=== PATIENT | female | born 1970 | race Hispanic/Latino ===

== ENCOUNTER 2017-09-27 15:08 | Inpatient (IN) | payer OTHER ==
[2017-09-27 15:08] VITALS: BMI 30.7
[2017-09-27] MEDS ORDERED: Aspirin 325 mg EC Tablets PO STA (16:06)
[2017-09-27] MEDS ORDERED: Aspirin 325 mg EC Tablets PO ONE (16:13)
[2017-09-27] MEDS ORDERED: Nitroglycerin 2% Ointment Foilpak UD TOP STA (16:26)
[2017-09-27] MEDS ORDERED: Enalaprilat 2.5 MG/2 ML IV ONE (16:26)
[2017-09-27 16:28] LABS: BASO # 0.1 K/uL (0.0-0.2); BASO % 0.8 % (0.0-2.0); EOS # 0.1 K/uL (0.0-0.7); EOS % 0.5 % (0.0-4.0); HEMOGLOBIN 11.7 g/dL (11.0-16.0); LYMPH # 1.7 K/uL (1.0-4.3); MEAN CORPUSCULAR HEMOGLOBIN 26.1 pg (27.0-31.0); MEAN CORPUSCULAR HGB CONC 32.2 g/dL (33.0-37.0); MEAN PLATELET VOLUME 7.7 fL (7.2-11.7); MONO # 0.4 K/uL (0.0-0.8); MONO % 3.9 % (0.0-10.0); NEUT # 8.9 K/uL (1.8-7.0); NEUT % 79.8 % (50.0-75.0); RBC 4.5 Mil/uL (3.80-5.20); RED CELL DISTRIBUTION WIDTH 19.2 % (11.5-14.5); WHITE BLOOD COUNT 11.2 K/uL (4.8-10.8)
[2017-09-27 16:36] LABS: INR 1.2
[2017-09-27] MEDS ORDERED: Nitroglycerin 2% Ointment Foilpak UD TOP ONE (16:38)
[2017-09-27] MEDS ORDERED: Enalaprilat 2.5 MG/2 ML ONE (16:38)
[2017-09-27 16:54] LABS: ALB/GLOB RATIO 1.1 (1.0-2.1); ALBUMIN 3.5 g/dL (3.5-5.0); ALT/SGPT 65 U/L (9-52); AST/SGOT 37 U/L (14-36); BLOOD UREA NITROGEN 15 mg/dL (7-17); CALCIUM 8.7 mg/dl (8.6-10.4); GFR AFRICAN-AMERICAN > 60; GFR NON-AFRICAN AMERICAN > 60
[2017-09-27 17:04] LABS: B-TYPE NATRIURETIC PEPTIDE 1850 pg/mL (0-450)
[2017-09-27] MEDS ORDERED: Labetalol 25mg/5ml Syringe IVP STA (17:23)
--- NOTE | 2017-09-27 17:48 | RAD ---
PROCEDURE: CHEST RADIOGRAPH, 1 VIEW HISTORY: chest pain COMPARISON: None available. FINDINGS: LUNGS: Clear. PLEURA: No pneumothorax or pleural fluid seen. CARDIOVASCULAR: Cardiomegaly. No evidence of acute, significant cardiovascular disease. OSSEOUS STRUCTURES: No significant abnormalities. VISUALIZED UPPER ABDOMEN: Normal. OTHER FINDINGS: None. IMPRESSION: No active disease.
--- NOTE | 2017-09-27 18:18 | C.PDOC ---
Time Seen by Provider: 09/27/17 15:54 Chief Complaint (Nursing): Chest Pain History Per: Patient, Family Onset/Duration Of Symptoms: Days (about 2 weeks), Intermittent Episodes Current Symptoms Are (Timing): Still Present Severity: Moderate Quality: "Pain" Associated Symptoms: Dyspnea Modifying Factors: Other Indicated Below Exacerbating Factors: Exertion Nitro Therapy Administered: 1, Per ED, Complete Relief Additional History Per: Prior Records Past Medical History Reviewed: Historical Data, Nursing Documentation, Vital Signs Vital Signs: Last Vital Signs Temp 98.4 F 09/27/17 15:32 Pulse 75 09/27/17 17:54 Resp 21 09/27/17 17:54 BP 208/119 H 09/27/17 17:54 Pulse Ox 99 09/27/17 17:54 - Medical History PMH: Anxiety, Back Problems, HTN (noncompliant with meds) Surgical History: Back Surgery Family History: States: Unknown Family Hx - Social History Hx Tobacco Use: Yes Hx Alcohol Use: No Hx Substance Use: No - Immunization History Hx Tetanus Toxoid Vaccination: No Hx Influenza Vaccination: No Hx Pneumococcal Vaccination: No Review Of Systems Except As Marked, All Systems Reviewed And Found Negative. Constitutional: Negative for: Fever Cardiovascular: Positive for: Chest Pain Respiratory: Positive for: SOB with Excertion. Negative for: Hemoptysis Gastrointestinal: Negative for: Vomiting, Abdominal Pain Musculoskeletal: Negative for: Neck Pain, Leg Pain Skin: Negative for: Rash Neurological: Negative for: Weakness, Numbness Psych: Positive for: Anxiety Physical Exam - Physical Exam Appears: In Acute Distress Skin: Normal Color, Warm, Dry, No Rash Head: Atraumatic, Normacephalic Eye(s): bilateral: Normal Inspection, PERRL, EOMI Neck: Normal ROM, Supple Cardiovascular: Rhythm Regular, Murmur Respiratory: Normal Breath Sounds, No Accessory Muscle Use Gastrointestinal/Abdominal: Soft, No Tenderness Back: No CVA Tenderness Extremity: Normal ROM, No Pedal Edema, No Calf Tenderness Neurological/Psych: Oriented x3, Normal Motor, Normal Sensation ED Course And Treatment - Laboratory Results Result Diagrams: 09/27/17 16:24 09/27/17 16:24 Lab Interpretation: Abnormal Interpretation Of Abnormal: Elevated BNP ECG: Interpreted By Me, Viewed By Me ECG Rhythm: Sinus Tachycardia, Nonspecific Changes ECG Interpretation: Abnormal Interpretation Of ECG: LVH Rate From EC O2 Sat by Pulse Oximetry: 99 Pulse Ox Interpretation: Normal - Radiology CXR: Viewed By Me, Read By Radiologist CXR Interpretation: Yes: Cardiomegaly Progress Note: BP remains elevated after multiple IV antihypertensive medication. Pt will require IV drip. Will admit to ICU. Pt requests to be admitted on Dr. Marti's service. Progress - Interventions Interventions:: Observation, Oxygen - Medications Administered Oral: Aspirin Intravenous: Antihypertensive - Data Reviewed Data Reviewed: Lab, Diagnostic imaging, EKG, Old records - Patient Status Patient status: Partially improved - Critical Care Citical Care: Excluding Proc Time Critical Care Time: 60 minutes - Continuity of Care Discussed patient case with:: Patient, Family-HIPPA compliant, ED Nurse Discussed pt. case with school plant consultant/specialty: Pulmonary/Crit. Care - Patient Plan Patient Plan: Admission, ICU Disposition Discussed With DrPreston: [place] Marti Comment: He evaluated pt in the ED and accepted pt ICU on his service. Doctor Will See Patient In The: ED Counseled Patient/Family Regarding: Studies Performed, Diagnosis - Disposition Disposition: HOSPITALIZED Disposition Time: 18:21 Condition: SERIOUS - Clinical Impression Clinical Impression: Hypertensive emergency
[2017-09-27] MEDS ORDERED: Lactated Ringer's 500 ML IV ONE (18:24)
[2017-09-27] MEDS ORDERED: Oxycodone/Acetaminophen 5/325 mg Tab PO PRN (18:36)
--- NOTE | 2017-09-27 19:10 | CP.PCM.HP ---
History of Present Illness - History of Present Illness History of Present Illness: Chief complaint: Intermittent chest pain History of present illness: 47-year-old female with a known history of high blood pressure, also chronic lower back pain, status post spinal fusion, patient came to the emergency room with the symptoms of chest discomfort. The patient was having some appointment in my office tomorrow but the family was concerned about her condition. Patient was having ongoing pain for almost 3 weeks, the patient reported chest discomfort in the anterior chest area, nonradiating pain noted. Patient is extremely anxious. Complaining of headache. She was also having some nausea, but no vomiting. She denies any diarrhea. No urinary symptoms. She did not have any dizziness. Patient the past was noted to have high blood pressure, but the patient was not on any medications recently. She stopped taking medications almost a year now. Patient did not monitor to check her blood pressure recently. Patient was not able to sleep well. She was having some blurring vision occasionally. In today in the emergency room patient blood pressure was extremely elevated. Patient is having some restlessness, and uneasiness, but after taking Ativan, she is feeling slightly better. The blood pressure still on the high side Past medical history: Hypertension, multiple disc disease, spinal fusion. Anxiety Surgical history: Spinal fusion Allergies: No known drug allergies Family history: Significant history of hypertension, heart disease noted Review of system: Patient is currently having some headache pain Chest discomfort noted. Denies any nausea or vomiting. No abdominal symptoms. Denies any leg pain, but the patient is having on and off leg comes from the spinal fusion surgery Vital signs reviewed No neck vein distention noted Chest good air entry bilaterally, no wheezing or rales noted CVS regular heart sound, no murmur noted Abdomen soft, nontender. Extremities no pedal edema [employer] alert awake oriented -3, no functional neurological deficit Patient labs. Nonspecific. Renal functions is normal Elevated proBNP level noted Chest x-ray mild vascular congestion noted Assessment and recommendation: 47-year-old female now admitted with a severe uncontrolled hypertension, and associated with the elevated proBNP, underlying CHF possible. Patient will need possibly nitroglycerin drip, but the accompanying of increasing headache because of the nitroglycerin. I will start the patient on low-dose nicardipine drip. Lasix diuretics. Cardiology evaluation. Echocardiogram. Most likely patient has an acute hypertensive crisis at this time. We'll closely monitor, intensive care unit monitoring. Present on Admission - Present on Admission Any Indicators Present on Admission: No History of DVT/PE: No History of Uncontrolled Diabetes: No Urinary Catheter: No Decubitus Ulcer Present: No Past Patient History - Past Social History Smoking Status: Heavy Smoker > 10 Cigarettes Daily - CARDIAC Hx Hypertension: Yes (noncompliant with meds) - NEUROLOGICAL Hx Paralysis: No - HEMATOLOGICAL/ONCOLOGICAL Hx Blood Transfusions: No - MUSCULOSKELETAL/RHEUMATOLOGICAL Hx Musculoskeletal Disorders: Yes - PSYCHIATRIC Hx Anxiety: Yes Hx Substance Use: No - SURGICAL HISTORY Hx Surgeries: Yes - ANESTHESIA Hx Anesthesia Reactions: No Hx Malignant Hyperthermia: No Meds Allergies/Adverse Reactions: Allergies Allergy/AdvReac Type Severity Reaction Status Date / Time No Known Allergies Allergy Verified 09/27/17 15:34 Results - Vital Signs Recent Vital Signs: Last Vital Signs Temp 98.4 F 09/27/17 15:32 Pulse 83 09/27/17 18:40 Resp 20 09/27/17 18:40 BP 214/120 H 09/27/17 18:40 Pulse Ox 99 09/27/17 18:40 - Labs Result Diagrams: 09/27/17 16:24 09/27/17 16:24 Labs: Laboratory Results - last 24 hr 09/27/17 09/27/17 09/27/17 16:24 16:24 16:24 WBC 11.2 H RBC 4.50 Hgb 11.7 Hct 36.5 MCV 81.0 MCH 26.1 L MCHC 32.2 L RDW 19.2 H Plt Count 314 MPV 7.7 Neut % (Auto) 79.8 H Lymph % (Auto) 15.0 L [place] % (Auto) 3.9 Eos % (Auto) 0.5 Baso % (Auto) 0.8 Neut # (Auto) 8.9 H Lymph # (Auto) 1.7 [place] # (Auto) 0.4 Eos # (Auto) 0.1 Baso # (Auto) 0.1 PT 13.0 H INR 1.2 APTT 28 Sodium 141 Potassium 3.6 Chloride 103 Carbon Dioxide 25 Anion Gap 17 BUN 15 Creatinine 0.8 Est GFR ( Amer) > 60 Est GFR (Non-Af Amer) > 60 Random Glucose 119 H Calcium 8.7 Total Bilirubin 0.8 AST 37 H ALT 65 H Alkaline Phosphatase 109 Troponin I 0.0540 NT-Pro-B Natriuret Pep 1850 H Total Protein 6.7 Albumin 3.5 Globulin 3.2 Albumin/Globulin Ratio 1.1
[2017-09-27] MEDS ORDERED: niCARdipine IV 25 MG in Sodium Chloride 0.9% 240 ML IV SCH (19:30)
[2017-09-27] MEDS ORDERED: Oxycodone/Acetaminophen 5/325 mg Tab ONE (20:07)
[2017-09-27] MEDS ORDERED: Potassium Chloride 20 mEq ER Tab PO STA (20:37)
[2017-09-27] MEDS ORDERED: Potassium Chloride 20 mEq ER Tab PO ONE (20:38)
[2017-09-27] MEDS ORDERED: Potassium Chloride 20 mEq/15 ml LIQ UD PO ONE (20:45)
[2017-09-27 21:31] LABS: ALB/GLOB RATIO 1.2 (1.0-2.1); ALBUMIN 4.4 g/dL (3.5-5.0); ALT/SGPT 50 U/L (9-52); AST/SGOT 61 U/L (14-36); BLOOD UREA NITROGEN 16 mg/dL (7-17); CALCIUM 9.1 mg/dl (8.6-10.4); GFR AFRICAN-AMERICAN > 60; GFR NON-AFRICAN AMERICAN > 60
--- NOTE | 2017-09-27 21:32 | CT ---
EXAM: CT Head Without Intravenous Contrast CLINICAL HISTORY: 47 years old, female; Condition or disease; Other: HTN; Additional info: HTN crisis TECHNIQUE: Axial computed tomography images of the head/brain without intravenous contrast. All CT scans at this facility use one or more dose reduction techniques, viz.: automated exposure control; ma/kV adjustment per patient size (including targeted exams where dose is matched to indication; i.e. head); or iterative reconstruction technique. Coronal and sagittal reformatted images were created and reviewed. COMPARISON: No relevant prior studies available. FINDINGS: Limitations: Motion artifact - mild. Brain: Minimal atrophy. No definite intracranial hemorrhage. No mass. Few scattered subtle foci of decreased attenuation within periventricular/subcortical white matter. No definite edema. Ventricles: No hydrocephalus. Bones/joints: No acute fracture. Soft tissues: Unremarkable. Sinuses: No acute sinusitis. Mastoid air cells: No mastoid effusion. Orbits: Unremarkable as visualized. Sella: Mildly enlarged sella with CSF density and flattening of pituitary gland. IMPRESSION: 1. Nonspecific white matter changes. Acute infarction may be CT occult within first 24 hours. If a focal deficit persists, consider followup CT or MRI for further evaluation. 2. Incidental/non-acute findings are described above.
[2017-09-27 21:39] LABS: CK-MB 1.84 ng/mL (0.0-3.38)
[2017-09-27] MEDS: Oxycodone/Acetaminophen 5/325 mg Tab PO PRN (21:55)
[2017-09-27] MEDS: niCARdipine IV 25 MG in Sodium Chloride 0.9% 240 ML IV SCH (22:10)
--- NOTE | 2017-09-27 23:00 | CP.PCM.CON ---
History of Present Illness - History of Present Illness History of Present Illness: Patient seen and evaluated Hypertensive emergency Titrate Cardene to keep SBP 150-180 CT head results pending Neuro consult Secondary HTN work up Check CTA of the Aorta Review Of Systems Except As Marked, All Systems Reviewed And Found Negative. Constitutional: Negative for: Fever Cardiovascular: Positive for: Chest Pain Respiratory: Positive for: SOB with Excertion. Negative for: Hemoptysis Gastrointestinal: Negative for: Vomiting, Abdominal Pain Musculoskeletal: Negative for: Neck Pain, Leg Pain Skin: Negative for: Rash Neurological: Negative for: Weakness, Numbness Psych: Positive for: Anxiety Physical Exam - Physical Exam Appears: In Acute Distress Skin: Normal Color, Warm, Dry, No Rash Head: Atraumatic, Normacephalic Eye(s): bilateral: Normal Inspection, PERRL, EOMI Neck: Normal ROM, Supple Cardiovascular: Rhythm Regular, Murmur Respiratory: Normal Breath Sounds, No Accessory Muscle Use Gastrointestinal/Abdominal: Soft, No Tenderness Back: No CVA Tenderness Extremity: Normal ROM, No Pedal Edema, No Calf Tenderness Neurological/Psych: Oriented x3, Normal Motor, Normal Sensation Past Patient History - Past Social History Smoking Status: Heavy Smoker > 10 Cigarettes Daily - CARDIAC Hx Hypertension: Yes (noncompliant with meds) - NEUROLOGICAL Hx Paralysis: No - HEMATOLOGICAL/ONCOLOGICAL Hx Blood Transfusions: No - MUSCULOSKELETAL/RHEUMATOLOGICAL Hx Musculoskeletal Disorders: Yes - PSYCHIATRIC Hx Anxiety: Yes Hx Substance Use: No - SURGICAL HISTORY Hx Surgeries: Yes - ANESTHESIA Hx Anesthesia Reactions: No Hx Malignant Hyperthermia: No Meds Home Medications: Home Medication List Medication Instructions Recorded Confirmed Type Alprazolam [Xanax] 0.5 mg PO TID PRN #90 tab 10/01/17 Rx Carvedilol [Coreg] 25 mg PO Q12H #60 tab 10/01/17 Rx Gabapentin [Neurontin] 300 mg PO TID #90 cap 10/01/17 Rx Spironolactone [Aldactone] 25 mg PO DAILY #30 tab 10/01/17 Rx amLODIPine [Norvasc] 10 mg PO Q12H #60 tab 10/01/17 Rx hydrALAZINE [Apresoline] 50 mg PO Q8 #90 tab 10/01/17 Rx Allergies/Adverse Reactions: Allergies Allergy/AdvReac Type Severity Reaction Status Date / Time No Known Allergies Allergy Verified 09/27/17 15:34 - Medications Medications: Current Medications Cyclobenzaprine HCl (Flexeril) 5 mg PO HS ALICE Last Admin: 09/27/17 22:23 Dose: 5 mg Furosemide (Lasix) 40 mg PO DAILY ALICE Heparin Sodium (Porcine) (Heparin) 5,000 units SC Q8 ALICE Last Admin: 09/27/17 21:55 Dose: 5,000 units Lactated Ringer's (Lactated Ringer's 500ml) 500 mls @ 30 mls/hr IV .[id number] ONE Stop: 09/28/17 11:03 Last Admin: 09/27/17 19:40 Dose: 30 mls/hr Nicardipine HCl 25 mg/ Sodium (Chloride) 250 mls @ 50 mls/hr IV .Q5H ALICE; 5 MG/ HR PRN Reason: Protocol Last Admin: 09/27/17 22:10 Dose: 5 mg/hr, 50 mls/hr Lorazepam (Ativan) 1 mg IVP Q6H PRN PRN Reason: Anxiety Last Admin: 09/27/17 22:16 Dose: 1 mg Losartan Potassium (Cozaar) 50 mg PO DAILY [facility] Oxycodone/Acetaminophen (Percocet 5/325 Mg Tab) 2 tab PO Q6H PRN PRN Reason: Pain, moderate (4-7) Stop: 09/30/17 21:43 Last Admin: 09/27/17 21:55 Dose: 2 tab Results - Vital Signs Recent Vital Signs: Last Vital Signs Temp 97.4 F L 09/27/17 20:02 Pulse 82 09/27/17 20:51 Resp 17 09/27/17 20:51 BP 219/120 H 09/27/17 20:51 Pulse Ox 98 09/27/17 20:51 - Labs Result Diagrams: 09/30/17 06:12 09/30/17 06:10 Labs: Laboratory Results - last 24 hr 09/27/17 09/27/17 09/27/17 16:24 16:24 16:24 WBC 11.2 H RBC 4.50 Hgb 11.7 Hct 36.5 MCV 81.0 MCH 26.1 L MCHC 32.2 L RDW 19.2 H Plt Count 314 MPV 7.7 Neut % (Auto) 79.8 H Lymph % (Auto) 15.0 L [place] % (Auto) 3.9 Eos % (Auto) 0.5 Baso % (Auto) 0.8 Neut # (Auto) 8.9 H Lymph # (Auto) 1.7 [place] # (Auto) 0.4 Eos # (Auto) 0.1 Baso # (Auto) 0.1 PT 13.0 H INR 1.2 APTT 28 Sodium 141 Potassium 3.6 Chloride 103 Carbon Dioxide 25 Anion Gap 17 BUN 15 Creatinine 0.8 Est GFR ( Amer) > 60 Est GFR (Non-Af Amer) > 60 Random Glucose 119 H Calcium 8.7 Phosphorus Magnesium Total Bilirubin 0.8 AST 37 H ALT 65 H Alkaline Phosphatase 109 Total Creatine Kinase CK-MB (Mass) Troponin I 0.0540 NT-Pro-B Natriuret Pep 1850 H Total Protein 6.7 Albumin 3.5 Globulin 3.2 Albumin/Globulin Ratio 1.1 09/27/17 21:03 WBC RBC Hgb Hct MCV MCH MCHC RDW Plt Count MPV Neut % (Auto) Lymph % (Auto) [place] % (Auto) Eos % (Auto) Baso % (Auto) Neut # (Auto) Lymph # (Auto) [place] # (Auto) Eos # (Auto) Baso # (Auto) PT INR APTT Sodium 141 Potassium 4.8 Chloride 103 Carbon Dioxide 24 Anion Gap 20 BUN 16 Creatinine 0.8 Est GFR ( Amer) > 60 Est GFR (Non-Af Amer) > 60 Random Glucose 201 H Calcium 9.1 Phosphorus 3.9 Magnesium 1.7 Total Bilirubin 1.6 H AST 61 H D ALT 50 Alkaline Phosphatase 106 Total Creatine Kinase 103 CK-MB (Mass) 1.84 Troponin I 0.0740 NT-Pro-B Natriuret Pep Total Protein 8.2 Albumin 4.4 Globulin 3.8 Albumin/Globulin Ratio 1.2 Assessment & Plan - Assessment and Plan (Free Text) Assessment: Patient is a 47 year old female with past medical history of HTN, chronic low back pain s/p spinal fusion who presented to the ED for chest discomfort, visual changes x 2 weeks. Patient was found to be in hypertensive emergency. Plan: Neurology: -Patient is AAOx3 -CT head: non-specific white matter changes -HTN work up in progress -Neurology on consult, Dr Tavera, help appreciated Cardiology: -Nicardipine iv drip -Add PO medications Respiratory: -CXR showing mild vascular congestion GI: -AST/ALT wnl -Will continue to monitor Heme/Onc: -No active issues at this time Renal: -Continue to monitor electrolytes and replete as needed -For renal artery duplex GI/DVT ppx: -Continue Pepcid 20mg PO daily -SCDs
--- NOTE | 2017-09-27 23:09 | US ---
EXAM: US Retroperitoneal Limited, Renal CLINICAL HISTORY: 47 years old, female; Signs and symptoms; Other: HTN TECHNIQUE: Real-time ultrasound of the retroperitoneum (limited) with image documentation. COMPARISON: No relevant prior studies available. FINDINGS: Aorta: Obscured by overlying bowel gas. Right kidney: Normal echogenicity. No mass. No calculi. Mild pelvocaliectasis. Left kidney: Normal echogenicity. No mass. No calculi. Mild pelvocaliectasis. Bladder: Unremarkable. Other findings: Gallstones. Tiny splenic calcification. IMPRESSION: 1. Mild pelvocaliectasis of both kidneys. 2. Incidental/non-acute findings are described above.
[2017-09-28] MEDS: niCARdipine IV 25 MG in Sodium Chloride 0.9% 240 ML IV SCH ×6 (01:08→18:00)
[2017-09-28] MEDS: Oxycodone/Acetaminophen 5/325 mg Tab PO PRN ×2 (05:29→12:05)
[2017-09-28 05:50] LABS: BASO # 0.1 K/uL (0.0-0.2); BASO % 1.1 % (0.0-2.0); EOS # 0.2 K/uL (0.0-0.7); EOS % 1.4 % (0.0-4.0); HEMOGLOBIN 13.2 g/dL (11.0-16.0); LYMPH # 2.9 K/uL (1.0-4.3); LYMPH % 23.2 % (20.0-40.0); MEAN CELL VOLUME 81.1 fL (81.0-99.0); MEAN CORPUSCULAR HEMOGLOBIN 26.5 pg (27.0-31.0); MEAN CORPUSCULAR HGB CONC 32.6 g/dL (33.0-37.0); MEAN PLATELET VOLUME 7.7 fL (7.2-11.7); MONO # 0.7 K/uL (0.0-0.8); MONO % 5.9 % (0.0-10.0); NEUT # 8.5 K/uL (1.8-7.0); NEUT % 68.4 % (50.0-75.0); NRBC % 0.1 % (0.0-2.0); RBC 4.98 Mil/uL (3.80-5.20); RED CELL DISTRIBUTION WIDTH 19.3 % (11.5-14.5); WHITE BLOOD COUNT 12.5 K/uL (4.8-10.8)
[2017-09-28 06:29] LABS: ALB/GLOB RATIO 1.2 (1.0-2.1); ALBUMIN 3.9 g/dL (3.5-5.0); ALT/SGPT 60 U/L (9-52); AST/SGOT 29 U/L (14-36); BLOOD UREA NITROGEN 13 mg/dL (7-17); CALCIUM 9.1 mg/dl (8.6-10.4); GFR AFRICAN-AMERICAN > 60; GFR NON-AFRICAN AMERICAN > 60
--- NOTE | 2017-09-28 07:15 | CP.PCM.CON ---
History of Present Illness - History of Present Illness History of Present Illness: CONSULT DICTATED HEADACHE RELATED TO ACCELERATED HTN POST LAMINECTOMY PAIN SYNDROME CONTROL BP BLOOD WORK UP FOR VASCULITIS MRI L/S SPINE PAIN MANAGEMENT NO NARCOTICS Past Patient History - Past Medical History & Family History Past Medical History?: Yes - Past Social History Smoking Status: Heavy Smoker > 10 Cigarettes Daily - CARDIAC Hx Hypertension: Yes (noncompliant with meds) - PULMONARY Hx Respiratory Disorders: No - NEUROLOGICAL Hx Paralysis: No - HEENT Hx HEENT Problems: No - RENAL Hx Chronic Kidney Disease: No - ENDOCRINE/METABOLIC Hx Endocrine Disorders: No - HEMATOLOGICAL/ONCOLOGICAL Hx Blood Transfusions: No - INTEGUMENTARY Hx Dermatological Problems: No - MUSCULOSKELETAL/RHEUMATOLOGICAL Hx Musculoskeletal Disorders: Yes - GASTROINTESTINAL Hx Gastrointestinal Disorders: No - GENITOURINARY/GYNECOLOGICAL Hx Genitourinary Disorders: No - PSYCHIATRIC Hx Anxiety: Yes Hx Substance Use: No - SURGICAL HISTORY Hx Surgeries: Yes - ANESTHESIA Hx Anesthesia Reactions: No Hx Malignant Hyperthermia: No Meds Allergies/Adverse Reactions: Allergies Allergy/AdvReac Type Severity Reaction Status Date / Time No Known Allergies Allergy Verified 09/27/17 15:34 - Medications Medications: Current Medications Cyclobenzaprine HCl (Flexeril) 5 mg PO HS ALICE Last Admin: 09/27/17 22:23 Dose: 5 mg Furosemide (Lasix) 40 mg PO DAILY [facility] Heparin Sodium (Porcine) (Heparin) 5,000 units SC Q8 ALICE Last Admin: 09/28/17 05:29 Dose: 5,000 units Lactated Ringer's (Lactated Ringer's 500ml) 500 mls @ 30 mls/hr IV .[id number] ONE Stop: 09/28/17 11:03 Last Admin: 09/27/17 19:40 Dose: 30 mls/hr Nicardipine HCl 25 mg/ Sodium (Chloride) 250 mls @ 50 mls/hr IV .Q5H ALICE; 5 MG/ HR PRN Reason: Protocol Last Titration: 09/28/17 05:31 Dose: 2.5 mg/hr, 25 mls/hr Lorazepam (Ativan) 1 mg IVP Q6H PRN PRN Reason: Anxiety Last Admin: 09/28/17 03:09 Dose: 1 mg Lorazepam (Ativan) 2 mg IVP ONCE ONE Stop: 09/28/17 07:14 Losartan Potassium (Cozaar) 50 mg PO DAILY ALICE Oxycodone/Acetaminophen (Percocet 5/325 Mg Tab) 2 tab PO Q6H PRN PRN Reason: Pain, moderate (4-7) Stop: 09/30/17 21:43 Last Admin: 09/28/17 05:29 Dose: 2 tab Results - Vital Signs Recent Vital Signs: Last Vital Signs Temp 97.4 F L 09/27/17 20:02 Pulse 79 09/28/17 06:03 Resp 17 09/28/17 06:03 BP 175/87 H 09/28/17 06:03 Pulse Ox 95 09/28/17 06:03 - Labs Result Diagrams: 09/28/17 05:46 09/28/17 05:44 Labs: Laboratory Results - last 24 hr 09/27/17 09/27/17 09/27/17 16:24 16:24 16:24 WBC 11.2 H RBC 4.50 Hgb 11.7 Hct 36.5 MCV 81.0 MCH 26.1 L MCHC 32.2 L RDW 19.2 H Plt Count 314 MPV 7.7 Neut % (Auto) 79.8 H Lymph % (Auto) 15.0 L [place] % (Auto) 3.9 Eos % (Auto) 0.5 Baso % (Auto) 0.8 Neut # (Auto) 8.9 H Lymph # (Auto) 1.7 [place] # (Auto) 0.4 Eos # (Auto) 0.1 Baso # (Auto) 0.1 PT 13.0 H INR 1.2 APTT 28 Sodium 141 Potassium 3.6 Chloride 103 Carbon Dioxide 25 Anion Gap 17 BUN 15 Creatinine 0.8 Est GFR ( Amer) > 60 Est GFR (Non-Af Amer) > 60 Random Glucose 119 H Calcium 8.7 Phosphorus Magnesium Total Bilirubin 0.8 AST 37 H ALT 65 H Alkaline Phosphatase 109 Lactate Dehydrogenase Total Creatine Kinase CK-MB (Mass) Troponin I 0.0540 C-React Prot High Sens NT-Pro-B Natriuret Pep 1850 H Total Protein 6.7 Albumin 3.5 Globulin 3.2 Albumin/Globulin Ratio 1.1 Homocysteine TSH 3rd Generation 09/27/17 09/28/17 09/28/17 21:03 05:44 05:44 WBC RBC Hgb Hct MCV MCH MCHC RDW Plt Count MPV Neut % (Auto) Lymph % (Auto) [place] % (Auto) Eos % (Auto) Baso % (Auto) Neut # (Auto) Lymph # (Auto) [place] # (Auto) Eos # (Auto) Baso # (Auto) PT INR APTT Sodium 141 143 Potassium 4.8 3.3 L Chloride 103 103 Carbon Dioxide 24 25 Anion Gap 20 19 BUN 16 13 Creatinine 0.8 0.8 Est GFR ( Amer) > 60 > 60 Est GFR (Non-Af Amer) > 60 > 60 Random Glucose 201 H 173 H Calcium 9.1 9.1 Phosphorus 3.9 3.8 Magnesium 1.7 1.9 Total Bilirubin 1.6 H 0.8 AST 61 H D 29 ALT 50 60 H Alkaline Phosphatase 106 124 Lactate Dehydrogenase 796 H Total Creatine Kinase 103 CK-MB (Mass) 1.84 Troponin I 0.0740 C-React Prot High Sens NT-Pro-B Natriuret Pep Total Protein 8.2 7.3 Albumin 4.4 3.9 Globulin 3.8 3.4 Albumin/Globulin Ratio 1.2 1.2 Homocysteine TSH 3rd Generation 1.27 09/28/17 09/28/17 09/28/17 05:46 06:34 06:34 WBC 12.5 H RBC 4.98 Hgb 13.2 Hct 40.4 MCV 81.1 MCH 26.5 L MCHC 32.6 L RDW 19.3 H Plt Count 356 MPV 7.7 Neut % (Auto) 68.4 Lymph % (Auto) 23.2 [place] % (Auto) 5.9 Eos % (Auto) 1.4 Baso % (Auto) 1.1 Neut # (Auto) 8.5 H Lymph # (Auto) 2.9 [place] # (Auto) 0.7 Eos # (Auto) 0.2 Baso # (Auto) 0.1 PT INR APTT Sodium Potassium Chloride Carbon Dioxide Anion Gap BUN Creatinine Est GFR ( Amer) Est GFR (Non-Af Amer) Random Glucose Calcium Phosphorus Magnesium Total Bilirubin AST ALT Alkaline Phosphatase Lactate Dehydrogenase Total Creatine Kinase CK-MB (Mass) Troponin I C-React Prot High Sens 13.12 H NT-Pro-B Natriuret Pep Total Protein Albumin Globulin Albumin/Globulin Ratio Homocysteine 8.5 TSH 3rd Generation
[2017-09-28] MEDS ORDERED: Potassium Chloride 20 mEq ER Tab PO ONE (09:00)
--- NOTE | 2017-09-28 09:44 | CP.CCUPN ---
<Marlyn Mayer - Last Filed: 09/28/17 11:49> CCU Subjective - Physician Review Subjective (Free Text): 09/28/17 09:43 Patient seen and examined at bedside. Per nursing, no acute events overnight. Patient states that she is feeling better. Still admits for having a headache but mild. Sitting up comfortably eating breakfast. Offers no other complaints at this time. CCU Objective - Vital Signs / Intake & Output Vital Signs (Last 4 hours): Vital Signs Temp Pulse Resp BP Pulse Ox 09/28/17 09:40 146/92 H 09/28/17 09:03 87 24 146/92 H 09/28/17 09:00 89 29 H 97 09/28/17 08:51 95 H 21 159/94 H 96 09/28/17 08:33 100 H 16 95 09/28/17 08:30 103 H 20 96 09/28/17 08:09 99 H 22 157/96 H 95 09/28/17 08:00 97.7 F 109 H 28 H 95 09/28/17 07:33 83 17 157/82 H 92 L 09/28/17 07:03 93 H 17 172/87 H 97 09/28/17 07:00 90 19 98 09/28/17 06:41 93 H 16 167/99 H 95 09/28/17 06:30 102 H 20 92 L 09/28/17 06:03 79 17 175/87 H 95 09/28/17 06:00 79 21 93 L Intake and Output (Last 8hrs): Intake & Output 09/27/17 09/28/17 09/28/17 22:59 06:59 14:59 Intake Total 230 1580 555 Output Total 700 1400 Balance -470 180 555 Weight 77.111 kg 79.634 kg Intake: IV 600 150 Intake, IV Amount 80 640 165 Left Hand 50 400 75 left arm 30 240 90 Oral 150 340 240 Output: Urine 700 1400 Urine, Voided 700 1400 Stool 0 - Physical Exam Head: Positive for: Atraumatic, Normocephalic Pupils: Positive for: PERRL Extroacular Muscles: Positive for: EOMI Conjunctiva: Positive for: Normal Mouth: Positive for: Moist Mucous Membranes Neck: Positive for: Normal Range of Motion Respiratory/Chest: Positive for: Clear to Auscultation, Good Air Exchange. Negative for: Respiratory Distress Cardiovascular: Positive for: Regular Rate and Rhythm, Normal S1, S2 Abdomen: Positive for: Normal Bowel Sounds. Negative for: Tenderness, Distention Upper Extremity: Negative for: Cyanosis, Edema Lower Extremity: Negative for: Edema Neurological: Positive for: CN II-XII Intact Skin: Positive for: Warm, Dry Psychiatric: Positive for: Alert, Oriented x 3 - Medications Active Medications: Active Medications Generic Name Dose Route Start Last Admin Trade Name Freq PRN Reason Stop Dose Admin Baclofen 10 mg 09/28/17 10:00 09/28/17 09:40 Lioresal PO 10 mg DAILY ALICE Administration Cyclobenzaprine HCl 5 mg 09/27/17 22:00 09/27/17 22:23 Flexeril PO 5 mg HS ALICE Administration Furosemide 40 mg 09/28/17 10:00 09/28/17 09:40 Lasix PO 40 mg DAILY ALICE Administration Gabapentin 300 mg 09/28/17 10:00 09/28/17 09:40 Neurontin PO 300 mg TID ALICE Administration Lactated Ringer's 500 mls @ 30 mls/hr 09/27/17 18:24 09/27/17 19:40 Lactated Ringer's 500ml IV 09/28/17 11:03 30 mls/hr .[id number] Administration Nicardipine HCl 25 mg/ Sodium 250 mls @ 50 mls/hr 09/27/17 22:00 09/28/17 09: 41 Chloride IV 2.5 mg/hr .Q5H ALICE 25 mls/hr Protocol Administration 5 MG/HR Lorazepam 1 mg 09/27/17 20:32 09/28/17 03:09 Ativan IVP 1 mg Q6H PRN Administration Anxiety Lorazepam 2 mg 09/28/17 07:13 Ativan IVP ONCE PRN lead front desk agent for MRI Losartan Potassium 50 mg 09/28/17 10:00 09/28/17 09:40 Cozaar PO 50 mg DAILY ALICE Administration Oxycodone/Acetaminophen 2 tab 09/27/17 21:42 09/28/17 05:29 Percocet 5/325 Mg Tab PO 09/30/17 21:43 2 tab Q6H PRN Administration Pain, moderate (4-7) - Patient Studies Lab Studies: Lab Studies 09/28/17 09/28/17 09/28/17 Range/Units 06:35 06:34 06:34 WBC (4.8-10.8) K/uL RBC (3.80-5.20) Mil/uL Hgb (11.0-16.0) g/dL Hct (34.0-47.0) % MCV (81.0-99.0) fL MCH (27.0-31.0) pg MCHC (33.0-37.0) g/dL RDW (11.5-14.5) % Plt Count (130-400) K/uL MPV (7.2-11.7) fL Neut % (Auto) (50.0-75.0) % Lymph % (Auto) (20.0-40.0) % [place] % (Auto) (0.0-10.0) % Eos % (Auto) (0.0-4.0) % Baso % (Auto) (0.0-2.0) % Neut # (Auto) (1.8-7.0) K/uL Lymph # (Auto) (1.0-4.3) K/uL [place] # (Auto) (0.0-0.8) K/uL Eos # (Auto) (0.0-0.7) K/uL Baso # (Auto) (0.0-0.2) K/uL ESR 7 (0-20) mm/hr PT (9.7-12.2) SECONDS INR APTT (21-34) SECONDS Sodium (132-148) mmol/L Potassium (3.6-5.2) mmol/L Chloride (98-107) mmol/L Carbon Dioxide (22-30) mmol/L Anion Gap (10-20) BUN (7-17) mg/dL Creatinine (0.7-1.2) mg/dL Est GFR ( Amer) Est GFR (Non-Af Amer) Random Glucose (65-105) mg/dL Calcium (8.6-10.4) mg/dl Phosphorus (2.5-4.5) mg/dL Magnesium (1.6-2.3) mg/dL Total Bilirubin (0.2-1.3) mg/dL AST (14-36) U/L ALT (9-52) U/L Alkaline Phosphatase (38-126) U/L Lactate Dehydrogenase (313-618) U/L Total Creatine Kinase (30-135) U/L CK-MB (Mass) (0.0-3.38) ng/mL Troponin I (0.00-0.120) ng/mL C-React Prot High Sens 13.12 H (1.00-3.00) mg/L NT-Pro-B Natriuret Pep (0-450) pg/mL Total Protein (6.3-8.3) g/dL Albumin (3.5-5.0) g/dL Globulin (2.2-3.9) gm/dL Albumin/Globulin Ratio (1.0-2.1) Homocysteine 8.5 (4.7-12.6) umol/L TSH 3rd Generation (0.46-4.68) mIU/L 09/28/17 09/28/17 09/28/17 Range/Units 05:46 05:44 05:44 WBC 12.5 H (4.8-10.8) K/uL RBC 4.98 (3.80-5.20) Mil/uL Hgb 13.2 (11.0-16.0) g/dL Hct 40.4 (34.0-47.0) % MCV 81.1 (81.0-99.0) fL MCH 26.5 L (27.0-31.0) pg MCHC 32.6 L (33.0-37.0) g/dL RDW 19.3 H (11.5-14.5) % Plt Count 356 (130-400) K/uL MPV 7.7 (7.2-11.7) fL Neut % (Auto) 68.4 (50.0-75.0) % Lymph % (Auto) 23.2 (20.0-40.0) % [place] % (Auto) 5.9 (0.0-10.0) % Eos % (Auto) 1.4 (0.0-4.0) % Baso % (Auto) 1.1 (0.0-2.0) % Neut # (Auto) 8.5 H (1.8-7.0) K/uL Lymph # (Auto) 2.9 (1.0-4.3) K/uL [place] # (Auto) 0.7 (0.0-0.8) K/uL Eos # (Auto) 0.2 (0.0-0.7) K/uL Baso # (Auto) 0.1 (0.0-0.2) K/uL ESR (0-20) mm/hr PT (9.7-12.2) SECONDS INR APTT (21-34) SECONDS Sodium 143 (132-148) mmol/L Potassium 3.3 L (3.6-5.2) mmol/L Chloride 103 (98-107) mmol/L Carbon Dioxide 25 (22-30) mmol/L Anion Gap 19 (10-20) BUN 13 (7-17) mg/dL Creatinine 0.8 (0.7-1.2) mg/dL Est GFR ( Amer) > 60 Est GFR (Non-Af Amer) > 60 Random Glucose 173 H (65-105) mg/dL Calcium 9.1 (8.6-10.4) mg/dl Phosphorus 3.8 (2.5-4.5) mg/dL Magnesium 1.9 (1.6-2.3) mg/dL Total Bilirubin 0.8 (0.2-1.3) mg/dL AST 29 (14-36) U/L ALT 60 H (9-52) U/L Alkaline Phosphatase 124 (38-126) U/L Lactate Dehydrogenase 796 H (313-618) U/L Total Creatine Kinase (30-135) U/L CK-MB (Mass) (0.0-3.38) ng/mL Troponin I (0.00-0.120) ng/mL C-React Prot High Sens (1.00-3.00) mg/L NT-Pro-B Natriuret Pep (0-450) pg/mL Total Protein 7.3 (6.3-8.3) g/dL Albumin 3.9 (3.5-5.0) g/dL Globulin 3.4 (2.2-3.9) gm/dL Albumin/Globulin Ratio 1.2 (1.0-2.1) Homocysteine (4.7-12.6) umol/L TSH 3rd Generation 1.27 (0.46-4.68) mIU/L 03/12/18 03/12/18 03/12/18 Range/Units 21:03 16:24 16:24 WBC (4.8-10.8) K/uL RBC (3.80-5.20) Mil/uL Hgb (11.0-16.0) g/dL Hct (34.0-47.0) % MCV (81.0-99.0) fL MCH (27.0-31.0) pg MCHC (33.0-37.0) g/dL RDW (11.5-14.5) % Plt Count (130-400) K/uL MPV (7.2-11.7) fL Neut % (Auto) (50.0-75.0) % Lymph % (Auto) (20.0-40.0) % [place] % (Auto) (0.0-10.0) % Eos % (Auto) (0.0-4.0) % Baso % (Auto) (0.0-2.0) % Neut # (Auto) (1.8-7.0) K/uL Lymph # (Auto) (1.0-4.3) K/uL [place] # (Auto) (0.0-0.8) K/uL Eos # (Auto) (0.0-0.7) K/uL Baso # (Auto) (0.0-0.2) K/uL ESR (0-20) mm/hr PT 13.0 H (9.7-12.2) SECONDS INR 1.2 APTT 28 (21-34) SECONDS Sodium 141 141 (132-148) mmol/L Potassium 4.8 3.6 (3.6-5.2) mmol/L Chloride 103 103 (98-107) mmol/L Carbon Dioxide 24 25 (22-30) mmol/L Anion Gap 20 17 (10-20) BUN 16 15 (7-17) mg/dL Creatinine 0.8 0.8 (0.7-1.2) mg/dL Est GFR ( Amer) > 60 > 60 Est GFR (Non-Af Amer) > 60 > 60 Random Glucose 201 H 119 H (65-105) mg/dL Calcium 9.1 8.7 (8.6-10.4) mg/dl Phosphorus 3.9 (2.5-4.5) mg/dL Magnesium 1.7 (1.6-2.3) mg/dL Total Bilirubin 1.6 H 0.8 (0.2-1.3) mg/dL AST 61 H D 37 H (14-36) U/L ALT 50 65 H (9-52) U/L Alkaline Phosphatase 106 109 (38-126) U/L Lactate Dehydrogenase (313-618) U/L Total Creatine Kinase 103 (30-135) U/L CK-MB (Mass) 1.84 (0.0-3.38) ng/mL Troponin I 0.0740 0.0540 (0.00-0.120) ng/mL C-React Prot High Sens (1.00-3.00) mg/L NT-Pro-B Natriuret Pep 1850 H (0-450) pg/mL Total Protein 8.2 6.7 (6.3-8.3) g/dL Albumin 4.4 3.5 (3.5-5.0) g/dL Globulin 3.8 3.2 (2.2-3.9) gm/dL Albumin/Globulin Ratio 1.2 1.1 (1.0-2.1) Homocysteine (4.7-12.6) umol/L TSH 3rd Generation (0.46-4.68) mIU/L 09/27/17 Range/Units 16:24 WBC 11.2 H (4.8-10.8) K/uL RBC 4.50 (3.80-5.20) Mil/uL Hgb 11.7 (11.0-16.0) g/dL Hct 36.5 (34.0-47.0) % MCV 81.0 (81.0-99.0) fL MCH 26.1 L (27.0-31.0) pg MCHC 32.2 L (33.0-37.0) g/dL RDW 19.2 H (11.5-14.5) % Plt Count 314 (130-400) K/uL MPV 7.7 (7.2-11.7) fL Neut % (Auto) 79.8 H (50.0-75.0) % Lymph % (Auto) 15.0 L (20.0-40.0) % [place] % (Auto) 3.9 (0.0-10.0) % Eos % (Auto) 0.5 (0.0-4.0) % Baso % (Auto) 0.8 (0.0-2.0) % Neut # (Auto) 8.9 H (1.8-7.0) K/uL Lymph # (Auto) 1.7 (1.0-4.3) K/uL [place] # (Auto) 0.4 (0.0-0.8) K/uL Eos # (Auto) 0.1 (0.0-0.7) K/uL Baso # (Auto) 0.1 (0.0-0.2) K/uL ESR (0-20) mm/hr PT (9.7-12.2) SECONDS INR APTT (21-34) SECONDS Sodium (132-148) mmol/L Potassium (3.6-5.2) mmol/L Chloride (98-107) mmol/L Carbon Dioxide (22-30) mmol/L Anion Gap (10-20) BUN (7-17) mg/dL Creatinine (0.7-1.2) mg/dL Est GFR ( Amer) Est GFR (Non-Af Amer) Random Glucose (65-105) mg/dL Calcium (8.6-10.4) mg/dl Phosphorus (2.5-4.5) mg/dL Magnesium (1.6-2.3) mg/dL Total Bilirubin (0.2-1.3) mg/dL AST (14-36) U/L ALT (9-52) U/L Alkaline Phosphatase (38-126) U/L Lactate Dehydrogenase (313-618) U/L Total Creatine Kinase (30-135) U/L CK-MB (Mass) (0.0-3.38) ng/mL Troponin I (0.00-0.120) ng/mL C-React Prot High Sens (1.00-3.00) mg/L NT-Pro-B Natriuret Pep (0-450) pg/mL Total Protein (6.3-8.3) g/dL Albumin (3.5-5.0) g/dL Globulin (2.2-3.9) gm/dL Albumin/Globulin Ratio (1.0-2.1) Homocysteine (4.7-12.6) umol/L TSH 3rd Generation (0.46-4.68) mIU/L Laboratory Results - last 24 hr 09/27/17 09/27/17 09/27/17 16:24 16:24 16:24 WBC 11.2 H RBC 4.50 Hgb 11.7 Hct 36.5 MCV 81.0 MCH 26.1 L MCHC 32.2 L RDW 19.2 H Plt Count 314 MPV 7.7 Neut % (Auto) 79.8 H Lymph % (Auto) 15.0 L [place] % (Auto) 3.9 Eos % (Auto) 0.5 Baso % (Auto) 0.8 Neut # (Auto) 8.9 H Lymph # (Auto) 1.7 [place] # (Auto) 0.4 Eos # (Auto) 0.1 Baso # (Auto) 0.1 ESR PT 13.0 H INR 1.2 APTT 28 Sodium 141 Potassium 3.6 Chloride 103 Carbon Dioxide 25 Anion Gap 17 BUN 15 Creatinine 0.8 Est GFR ( Amer) > 60 Est GFR (Non-Af Amer) > 60 Random Glucose 119 H Calcium 8.7 Phosphorus Magnesium Total Bilirubin 0.8 AST 37 H ALT 65 H Alkaline Phosphatase 109 Lactate Dehydrogenase Total Creatine Kinase CK-MB (Mass) Troponin I 0.0540 C-React Prot High Sens NT-Pro-B Natriuret Pep 1850 H Total Protein 6.7 Albumin 3.5 Globulin 3.2 Albumin/Globulin Ratio 1.1 Homocysteine TSH 3rd Generation 09/27/17 09/28/17 09/28/17 21:03 05:44 05:44 WBC RBC Hgb Hct MCV MCH MCHC RDW Plt Count MPV Neut % (Auto) Lymph % (Auto) [place] % (Auto) Eos % (Auto) Baso % (Auto) Neut # (Auto) Lymph # (Auto) [place] # (Auto) Eos # (Auto) Baso # (Auto) ESR PT INR APTT Sodium 141 143 Potassium 4.8 3.3 L Chloride 103 103 Carbon Dioxide 24 25 Anion Gap 20 19 BUN 16 13 Creatinine 0.8 0.8 Est GFR ( Amer) > 60 > 60 Est GFR (Non-Af Amer) > 60 > 60 Random Glucose 201 H 173 H Calcium 9.1 9.1 Phosphorus 3.9 3.8 Magnesium 1.7 1.9 Total Bilirubin 1.6 H 0.8 AST 61 H D 29 ALT 50 60 H Alkaline Phosphatase 106 124 Lactate Dehydrogenase 796 H Total Creatine Kinase 103 CK-MB (Mass) 1.84 Troponin I 0.0740 C-React Prot High Sens NT-Pro-B Natriuret Pep Total Protein 8.2 7.3 Albumin 4.4 3.9 Globulin 3.8 3.4 Albumin/Globulin Ratio 1.2 1.2 Homocysteine TSH 3rd Generation 1.27 09/28/17 09/28/17 09/28/17 05:46 06:34 06:34 WBC 12.5 H RBC 4.98 Hgb 13.2 Hct 40.4 MCV 81.1 MCH 26.5 L MCHC 32.6 L RDW 19.3 H Plt Count 356 MPV 7.7 Neut % (Auto) 68.4 Lymph % (Auto) 23.2 [place] % (Auto) 5.9 Eos % (Auto) 1.4 Baso % (Auto) 1.1 Neut # (Auto) 8.5 H Lymph # (Auto) 2.9 [place] # (Auto) 0.7 Eos # (Auto) 0.2 Baso # (Auto) 0.1 ESR PT INR APTT Sodium Potassium Chloride Carbon Dioxide Anion Gap BUN Creatinine Est GFR ( Amer) Est GFR (Non-Af Amer) Random Glucose Calcium Phosphorus Magnesium Total Bilirubin AST ALT Alkaline Phosphatase Lactate Dehydrogenase Total Creatine Kinase CK-MB (Mass) Troponin I C-React Prot High Sens 13.12 H NT-Pro-B Natriuret Pep Total Protein Albumin Globulin Albumin/Globulin Ratio Homocysteine 8.5 TSH 3rd Generation 09/28/17 06:35 WBC RBC Hgb Hct MCV MCH MCHC RDW Plt Count MPV Neut % (Auto) Lymph % (Auto) [place] % (Auto) Eos % (Auto) Baso % (Auto) Neut # (Auto) Lymph # (Auto) [place] # (Auto) Eos # (Auto) Baso # (Auto) ESR 7 PT INR APTT Sodium Potassium Chloride Carbon Dioxide Anion Gap BUN Creatinine Est GFR ( Amer) Est GFR (Non-Af Amer) Random Glucose Calcium Phosphorus Magnesium Total Bilirubin AST ALT Alkaline Phosphatase Lactate Dehydrogenase Total Creatine Kinase CK-MB (Mass) Troponin I C-React Prot High Sens NT-Pro-B Natriuret Pep Total Protein Albumin Globulin Albumin/Globulin Ratio Homocysteine TSH 3rd Generation EKG/Cardiology Studies: Cardiology / EKG Studies 09/27/17 15:13 EKG [ELECTROCARDIOGRAM] Stat Comment: Mode Of Transportation: Reason For Exam: bed 9; sob, chest pain Review of Systems - Review of Systems All systems: reviewed and no additional remarkable complaints except Critical Care Progress Note - Nutrition Nutrition: Nutrition Category Date Time Status Liquid Diet [DIET] Diets 09/27/17 Breakfast Active Assessment/Plan - Assessment and Plan (Free Text) Assessment: Patient is a 47 year old female with past medical history of HTN, chronic low back pain s/p spinal fusion who presented to the ED for chest discomfort, visual changes x 2 weeks. Patient was found to be in hypertensive emergency. Plan: Neurology: -Patient is AAOx3 -CT head: non-specific white matter changes -MRI of lumbar spine ordered -CRP elevated 13.12 -Continue Baclofen 10mg PO daily -Continue Gabapentin 300mg PO TID -HTN work up in progress -Neurology on consult, Dr Tavear, help appreciated Cardiology: -Patient on Nicardipine drip, will attempt to taper off -Continue Cozaar 50mg PO daily -Continue Lasix 40mg PO daily -BNP 1850 -Echo ordered, f/u results -Cardiology on consult, Dr Danielle, help appreciated Respiratory: -CXR showing mild vascular congestion GI: -AST/ALT: 29/60 today -Will continue to monitor Heme/Onc: -No active issues at this time Renal: -Potassium 3.3 today -Repleted with Kcl 40 meq PO x 1 -Continue to monitor electrolytes and replete as needed -For renal artery duplex tomorrow, must be NPO after midnight for study GI/DVT ppx: -Continue Pepcid 20mg PO daily -SCDs Plan discussed with Dr Perkins <Ralph Perkins S - Last Filed: 09/28/17 17:51> CCU Objective - Vital Signs / Intake & Output Vital Signs (Last 4 hours): Vital Signs Temp Pulse Resp BP Pulse Ox 09/28/17 17:41 143/75 09/28/17 17:17 83 24 143/75 96 09/28/17 16:17 85 20 136/68 09/28/17 16:08 88 21 158/86 H 09/28/17 16:00 98.6 F 09/28/17 15:28 94 H 169/88 H 96 09/28/17 14:18 94 H 22 156/93 H 09/28/17 14:16 94 H 24 181/94 H 09/28/17 14:03 101 H 26 H 187/106 H 09/28/17 14:00 109 H 25 H 95 Intake and Output (Last 8hrs): Intake & Output 09/28/17 09/28/17 09/28/17 06:59 14:59 22:59 Intake Total 1580 1427.5 525 Output Total 1400 300 800 Balance 180 1127.5 -275 Weight 175 lb 9 oz Intake: IV 600 205 195 Intake, IV Amount 640 502.5 330 Left Hand 400 262.5 100 left arm 240 240 230 Oral 340 720 Output: Urine 1400 300 800 Urine, Voided 1400 300 800 Stool 0 Other: # Voids Urine, Voided 1 - Medications Active Medications: Active Medications Generic Name Dose Route Start Last Admin Trade Name Freq PRN Reason Stop Dose Admin Baclofen 10 mg 09/28/17 10:00 09/28/17 09:40 Lioresal PO 10 mg DAILY ALICE Administration Cyclobenzaprine HCl 5 mg 09/27/17 22:00 09/27/17 22:23 Flexeril PO 5 mg HS ALICE Administration Famotidine 20 mg 09/29/17 10:00 Pepcid PO DAILY ALICE Gabapentin 300 mg 09/28/17 10:00 09/28/17 17:42 Neurontin PO 300 mg TID ALICE Administration Hydralazine HCl 25 mg 09/28/17 11:03 09/28/17 17:42 Apresoline PO 25 mg TID ALICE Administration Nicardipine HCl 25 mg/ Sodium 250 mls @ 50 mls/hr 09/27/17 22:00 09/28/17 16: 54 Chloride IV 2.5 mg/hr .Q5H ALICE 25 mls/hr Protocol Titration 5 MG/HR Lorazepam 1 mg 09/27/17 20:32 09/28/17 14:10 Ativan IVP 1 mg Q6H PRN Administration Anxiety Lorazepam 2 mg 09/28/17 07:13 Ativan IVP ONCE PRN lead front desk agent for MRI Losartan Potassium 50 mg 09/28/17 10:00 09/28/17 09:40 Cozaar PO 50 mg DAILY ALICE Administration Metoprolol Tartrate 25 mg 09/28/17 18:00 09/28/17 17:41 Lopressor PO 25 mg BID ALICE Administration Oxycodone/Acetaminophen 2 tab 09/27/17 21:42 09/28/17 12:05 Percocet 5/325 Mg Tab PO 09/30/17 21:43 2 tab Q6H PRN Administration Pain, moderate (4-7) - Patient Studies Lab Studies: Lab Studies 09/28/17 09/28/17 09/28/17 Range/Units 07:42 06:35 06:34 WBC (4.8-10.8) K/uL RBC (3.80-5.20) Mil/uL Hgb (11.0-16.0) g/dL Hct (34.0-47.0) % MCV (81.0-99.0) fL MCH (27.0-31.0) pg MCHC (33.0-37.0) g/dL RDW (11.5-14.5) % Plt Count (130-400) K/uL MPV (7.2-11.7) fL Neut % (Auto) (50.0-75.0) % Lymph % (Auto) (20.0-40.0) % [place] % (Auto) (0.0-10.0) % Eos % (Auto) (0.0-4.0) % Baso % (Auto) (0.0-2.0) % Neut # (Auto) (1.8-7.0) K/uL Lymph # (Auto) (1.0-4.3) K/uL [place] # (Auto) (0.0-0.8) K/uL Eos # (Auto) (0.0-0.7) K/uL Baso # (Auto) (0.0-0.2) K/uL ESR 7 (0-20) mm/hr Sodium (132-148) mmol/L Potassium (3.6-5.2) mmol/L Chloride (98-107) mmol/L Carbon Dioxide (22-30) mmol/L Anion Gap (10-20) BUN (7-17) mg/dL Creatinine (0.7-1.2) mg/dL Est GFR ( Amer) Est GFR (Non-Af Amer) Random Glucose (65-105) mg/dL Calcium (8.6-10.4) mg/dl Phosphorus (2.5-4.5) mg/dL Magnesium (1.6-2.3) mg/dL Total Bilirubin (0.2-1.3) mg/dL AST (14-36) U/L ALT (9-52) U/L Alkaline Phosphatase (38-126) U/L Lactate Dehydrogenase (313-618) U/L Total Creatine Kinase (30-135) U/L CK-MB (Mass) (0.0-3.38) ng/mL Troponin I (0.00-0.120) ng/mL C-React Prot High Sens (1.00-3.00) mg/L Total Protein (6.3-8.3) g/dL Albumin (3.5-5.0) g/dL Globulin (2.2-3.9) gm/dL Albumin/Globulin Ratio (1.0-2.1) Homocysteine 8.5 (4.7-12.6) umol/L TSH 3rd Generation (0.46-4.68) mIU/L RPR Nonreactive (NONREACTIVE) 09/28/17 09/28/17 09/28/17 Range/Units 06:34 05:46 05:44 WBC 12.5 H (4.8-10.8) K/uL RBC 4.98 (3.80-5.20) Mil/uL Hgb 13.2 (11.0-16.0) g/dL Hct 40.4 (34.0-47.0) % MCV 81.1 (81.0-99.0) fL MCH 26.5 L (27.0-31.0) pg MCHC 32.6 L (33.0-37.0) g/dL RDW 19.3 H (11.5-14.5) % Plt Count 356 (130-400) K/uL MPV 7.7 (7.2-11.7) fL Neut % (Auto) 68.4 (50.0-75.0) % Lymph % (Auto) 23.2 (20.0-40.0) % [place] % (Auto) 5.9 (0.0-10.0) % Eos % (Auto) 1.4 (0.0-4.0) % Baso % (Auto) 1.1 (0.0-2.0) % Neut # (Auto) 8.5 H (1.8-7.0) K/uL Lymph # (Auto) 2.9 (1.0-4.3) K/uL [place] # (Auto) 0.7 (0.0-0.8) K/uL Eos # (Auto) 0.2 (0.0-0.7) K/uL Baso # (Auto) 0.1 (0.0-0.2) K/uL ESR (0-20) mm/hr Sodium 143 (132-148) mmol/L Potassium 3.3 L (3.6-5.2) mmol/L Chloride 103 (98-107) mmol/L Carbon Dioxide 25 (22-30) mmol/L Anion Gap 19 (10-20) BUN 13 (7-17) mg/dL Creatinine 0.8 (0.7-1.2) mg/dL Est GFR ( Amer) > 60 Est GFR (Non-Af Amer) > 60 Random Glucose 173 H (65-105) mg/dL Calcium 9.1 (8.6-10.4) mg/dl Phosphorus 3.8 (2.5-4.5) mg/dL Magnesium 1.9 (1.6-2.3) mg/dL Total Bilirubin 0.8 (0.2-1.3) mg/dL AST 29 (14-36) U/L ALT 60 H (9-52) U/L Alkaline Phosphatase 124 (38-126) U/L Lactate Dehydrogenase 796 H (313-618) U/L Total Creatine Kinase (30-135) U/L CK-MB (Mass) (0.0-3.38) ng/mL Troponin I (0.00-0.120) ng/mL C-React Prot High Sens 13.12 H (1.00-3.00) mg/L Total Protein 7.3 (6.3-8.3) g/dL Albumin 3.9 (3.5-5.0) g/dL Globulin 3.4 (2.2-3.9) gm/dL Albumin/Globulin Ratio 1.2 (1.0-2.1) Homocysteine (4.7-12.6) umol/L TSH 3rd Generation (0.46-4.68) mIU/L RPR (NONREACTIVE) 09/28/17 09/27/17 Range/Units 05:44 21:03 WBC (4.8-10.8) K/uL RBC (3.80-5.20) Mil/uL Hgb (11.0-16.0) g/dL Hct (34.0-47.0) % MCV (81.0-99.0) fL MCH (27.0-31.0) pg MCHC (33.0-37.0) g/dL RDW (11.5-14.5) % Plt Count (130-400) K/uL MPV (7.2-11.7) fL Neut % (Auto) (50.0-75.0) % Lymph % (Auto) (20.0-40.0) % [place] % (Auto) (0.0-10.0) % Eos % (Auto) (0.0-4.0) % Baso % (Auto) (0.0-2.0) % Neut # (Auto) (1.8-7.0) K/uL Lymph # (Auto) (1.0-4.3) K/uL [place] # (Auto) (0.0-0.8) K/uL Eos # (Auto) (0.0-0.7) K/uL Baso # (Auto) (0.0-0.2) K/uL ESR (0-20) mm/hr Sodium 141 (132-148) mmol/L Potassium 4.8 (3.6-5.2) mmol/L Chloride 103 (98-107) mmol/L Carbon Dioxide 24 (22-30) mmol/L Anion Gap 20 (10-20) BUN 16 (7-17) mg/dL Creatinine 0.8 (0.7-1.2) mg/dL Est GFR ( Amer) > 60 Est GFR (Non-Af Amer) > 60 Random Glucose 201 H (65-105) mg/dL Calcium 9.1 (8.6-10.4) mg/dl Phosphorus 3.9 (2.5-4.5) mg/dL Magnesium 1.7 (1.6-2.3) mg/dL Total Bilirubin 1.6 H (0.2-1.3) mg/dL AST 61 H D (14-36) U/L ALT 50 (9-52) U/L Alkaline Phosphatase 106 (38-126) U/L Lactate Dehydrogenase (313-618) U/L Total Creatine Kinase 103 (30-135) U/L CK-MB (Mass) 1.84 (0.0-3.38) ng/mL Troponin I 0.0740 (0.00-0.120) ng/mL C-React Prot High Sens (1.00-3.00) mg/L Total Protein 8.2 (6.3-8.3) g/dL Albumin 4.4 (3.5-5.0) g/dL Globulin 3.8 (2.2-3.9) gm/dL Albumin/Globulin Ratio 1.2 (1.0-2.1) Homocysteine (4.7-12.6) umol/L TSH 3rd Generation 1.27 (0.46-4.68) mIU/L RPR (NONREACTIVE) Laboratory Results - last 24 hr 09/27/17 09/28/17 09/28/17 21:03 05:44 05:44 WBC RBC Hgb Hct MCV MCH MCHC RDW Plt Count MPV Neut % (Auto) Lymph % (Auto) [place] % (Auto) Eos % (Auto) Baso % (Auto) Neut # (Auto) Lymph # (Auto) [place] # (Auto) Eos # (Auto) Baso # (Auto) ESR Sodium 141 143 Potassium 4.8 3.3 L Chloride 103 103 Carbon Dioxide 24 25 Anion Gap 20 19 BUN 16 13 Creatinine 0.8 0.8 Est GFR ( Amer) > 60 > 60 Est GFR (Non-Af Amer) > 60 > 60 Random Glucose 201 H 173 H Calcium 9.1 9.1 Phosphorus 3.9 3.8 Magnesium 1.7 1.9 Total Bilirubin 1.6 H 0.8 AST 61 H D 29 ALT 50 60 H Alkaline Phosphatase 106 124 Lactate Dehydrogenase 796 H Total Creatine Kinase 103 CK-MB (Mass) 1.84 Troponin I 0.0740 C-React Prot High Sens Total Protein 8.2 7.3 Albumin 4.4 3.9 Globulin 3.8 3.4 Albumin/Globulin Ratio 1.2 1.2 Homocysteine TSH 3rd Generation 1.27 RPR 09/28/17 09/28/1718 05:46 06:34 06:34 WBC 12.5 H RBC 4.98 Hgb 13.2 Hct 40.4 MCV 81.1 MCH 26.5 L MCHC 32.6 L RDW 19.3 H Plt Count 356 MPV 7.7 Neut % (Auto) 68.4 Lymph % (Auto) 23.2 [place] % (Auto) 5.9 Eos % (Auto) 1.4 Baso % (Auto) 1.1 Neut # (Auto) 8.5 H Lymph # (Auto) 2.9 [place] # (Auto) 0.7 Eos # (Auto) 0.2 Baso # (Auto) 0.1 ESR Sodium Potassium Chloride Carbon Dioxide Anion Gap BUN Creatinine Est GFR ( Amer) Est GFR (Non-Af Amer) Random Glucose Calcium Phosphorus Magnesium Total Bilirubin AST ALT Alkaline Phosphatase Lactate Dehydrogenase Total Creatine Kinase CK-MB (Mass) Troponin I C-React Prot High Sens 13.12 H Total Protein Albumin Globulin Albumin/Globulin Ratio Homocysteine 8.5 TSH 3rd Generation RPR 09/28/17 09/28/17 06:35 07:42 WBC RBC Hgb Hct MCV MCH MCHC RDW Plt Count MPV Neut % (Auto) Lymph % (Auto) [place] % (Auto) Eos % (Auto) Baso % (Auto) Neut # (Auto) Lymph # (Auto) [place] # (Auto) Eos # (Auto) Baso # (Auto) ESR 7 Sodium Potassium Chloride Carbon Dioxide Anion Gap BUN Creatinine Est GFR ( Amer) Est GFR (Non-Af Amer) Random Glucose Calcium Phosphorus Magnesium Total Bilirubin AST ALT Alkaline Phosphatase Lactate Dehydrogenase Total Creatine Kinase CK-MB (Mass) Troponin I C-React Prot High Sens Total Protein Albumin Globulin Albumin/Globulin Ratio Homocysteine TSH 3rd Generation RPR Nonreactive Critical Care Progress Note - Nutrition Nutrition: Nutrition Category Date Time Status Heart Healthy Diet [DIET] Diets 09/28/17 Breakfast Active Attending/Attestation - Attestation I have personally seen and examined this patient.: Yes I have fully participated in the care of the patient.: Yes I have reviewed all pertinent clinical information: Yes Notes (Text): 09/28/17 17:49 Patient seen and examined in the intensive care unit. Taper off Cardene drip Patient started on beta sabrina, hydralazine Continue ICU care for now
[2017-09-28] MEDS: Magnesium Sulfate 1 gm in D5W 1 GM/100 ML BAG IVPB SCH ×2 (15:25→16:01)
--- NOTE | 2017-09-28 18:55 | CON ---
DATE: 09/28/2017 TIME OF EVALUATION: 11:05 a.m. REASON FOR CONSULTATION: Headache and lower back pain. CHIEF COMPLAINT: The patient was brought into [facility] with a history of 3 days of chest pain and discomfort, which is associating with headache. For that reason, I was called in to evaluate her for further management. HISTORY OF PRESENT ILLNESS: Mrs. Joann Epps is a 47-year-old right-handed, , [place]an-speaking female, usual state of health for the last few days having chest pain associating with some discomfortness in the chest wall. In the emergency room, the patient was found to have uncontrolled accelerated hypertension, being controlled with medication. The patient also is suffering from headache, which was associating with the blood pressure. The headache was 10/10 at the time she came in. At present, the headache is almost resolved, not bothering her. However, she is complaining of lower back pain with spasm of her legs. Lower back pain radiating to her left leg mostly, lately this is traveling to her right side, appears all movement including chest discomforting problem. Not associating with bowel and bladder dysfunction. However, she was able to ambulate on her own. History of numbness on her left leg. PAST MEDICAL HISTORY: Hypertension; lumbosacral disk disease, had been operated 10 years ago with fusion by Dr. Eng. ALLERGIES: NO KNOWN ALLERGIES. PERSONAL HISTORY: No history of alcohol use and smoking 3 cigarettes per day for 15 years. However, currently she is smoking more than 10 cigarettes per day. REVIEW OF SYSTEMS: A 12-point system has been reviewed. From neuro, headache and lower back pain. MEDICATIONS: Flexeril, Lasix, Nicardipine, and oxycodone. PHYSICAL EXAMINATION: VITAL SIGNS: Blood pressure 175/87, mean artery pressure of 122, respiratory rate is 16, temperature afebrile. NECK: Supple. No carotid bruits. HEART: Heart sounds regular. CHEST: Bilaterally air entry. EXTREMITIES: No edema. Left leg externally rotated. NEUROLOGIC: Mental status examination: She is awake, alert, oriented to person, place and time. The patient states her . Cranial nerve examination: Visual field intact. Pupils are reactive to light. Extraocular movement normal. No nystagmus. No facial sensory deficit. No facial asymmetry. Hearing is normal. Tongue is midline. Good gag. Motor examination: Outstretched hand with eyes closed, no drift noted. Power is symmetric on either side. Deep tendon reflexes: Biceps, brachialis, triceps 2+ on either side. Right knee 2+, left knee absent. Both ankles are absent. Plantars are downgoing. Sensory examination: Decreased pinprick over left L4 and L5 dermatome on the symptomatic left side. Straight leg raising test, the patient could not able to tolerate on both sides. Coordination: Glsfao-gigy-crkoef test is intact. Gait is deferred at this time. WORKUP: CT of the head without any acute pathology. EKG, normal sinus rhythm. Blood workup:, WBC 12.5, hemoglobin 13.2, hematocrit 40.4, and platelet 356. PT 13.0, INR 1.2, PTT 28. Sodium 143, potassium 3.3, chloride 103, bicarbonate 25, GFR more than 60. Glucose 173, LDH is 796, CRP 13.12. BNP 1850. CONCLUSION: 1. Ms. Joann Epps is presenting with headache which is all related to her accelerated hypertension. At present, her headache is better with her blood pressure medication. 2. 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 RECOMMENDATIONS: 1. MRI of the lumbosacral spine to assess her disk issues. 2. The patient can benefit with Baclofen and gabapentin on titrating dose. No narcotic is recommended because of substance abuse. 3. For headache, need her to have vasculitis workup. If the patient was symptomatic and headache is worse, at that point I would like to work up radiological studies for her headache. In the meantime, the patient should be resting as well as with DVT prophylaxis and control blood pressure. Hydration. The patient's condition has been well discussed with her as well as with herself. Rodrick Tavera MD
--- NOTE | 2017-09-28 19:42 | CARD ---
APPROVED REPORT EXAM: Two-dimensional and M-mode echocardiogram with Doppler and color Doppler. Other Information Quality : GoodRhythm : INDICATION Dyspnea Chest Pain Congestive Heart Failure RISK FACTORS Hypertension 2D DIMENSIONS IVSd1.7 (0.7-1.1cm)LVDd3.9 (3.9-5.9cm) PWd1.6 (0.7-1.1cm)LVDs2.7 (2.5-4.0cm) FS (%) 31.1 %LVEF (%)59.5 (>50%) M-Mode DIMENSIONS Left Atrium (MM)4.00 (2.5-4.0cm)Aortic Root2.58 (2.2-3.7cm) Aortic Cusp Exc.2.18 (1.5-2.0cm) Aortic Valve AI P 1/2 [id number] Mitral Valve MV E Mxjozbvn743.3cm/sMV A Xycpsflt473.9cm/sE/A ratio0.9 TDI E/Lateral E'0.0E/Medial E'0.0 Tricuspid Valve TR Peak Dagumndl327ks/sTR Peak [id number] LEFT VENTRICLE The left ventricle is normal size. There is mild to moderate concentric left ventricular hypertrophy. The left ventricular function is normal. The left ventricular ejection fraction is within the normal range. No regional wall motion abnormalities noted. Transmitral Doppler flow pattern is Grade II-pseudonormal filling dynamics.LV FILLING PRESSURE PROBABLY INCREASED No left ventricle thrombus noted on this study. There is no ventricular septal defect visualized. There is no left ventricular aneurysm. There is no mass noted in the left ventricle. RIGHT VENTRICLE The right ventricle is normal size. There is normal right ventricular wall thickness. The right ventricular systolic function is normal. ATRIA The left atrium is mildly dilated. The right atrium size is normal. The interatrial septum is intact with no evidence for an atrial septal defect. AORTIC VALVE The aortic valve is normal in structure and function. There is mild aortic regurgitation. There is no aortic valvular stenosis. There is no aortic valvular vegetation. MITRAL VALVE The mitral valve is normal in structure and function. There is no evidence of mitral valve prolapse. There is no mitral valve stenosis. Mitral regurgitation is mild. TRICUSPID VALVE The tricuspid valve is normal in structure and function. There is mild tricuspid regurgitation. Right ventricular systolic pressure is estimated at 30-40 mmHg. There is no tricuspid valve prolapse or vegetation. There is no tricuspid valve stenosis. PULMONIC VALVE The pulmonary valve is normal in structure and function. There is no pulmonic valvular regurgitation. There is no pulmonic valvular stenosis. GREAT VESSELS The aortic root is normal in size. The ascending aorta is normal in size. The pulmonary artery is normal. The IVC is normal in size and collapses >50% with inspiration. PERICARDIAL EFFUSION The pericardium appears normal. There is no pleural effusion. <Conclusion> The left ventricular function is normal. The left ventricular ejection fraction is within the normal range. No regional wall motion abnormalities noted. Transmitral Doppler flow pattern is Grade II-pseudonormal filling dynamics.LV FILLING PRESSURE PROBABLY INCREASED The left atrium is mildly dilated. There is mild aortic regurgitation. Mitral regurgitation is mild. There is mild to moderate concentric left ventricular hypertrophy.
--- NOTE | 2017-09-28 21:19 | CP.PCM.PN ---
Subjective - Date & Time of Evaluation Date of Evaluation: 09/28/17 Time of Evaluation: 21:17 - Subjective Subjective: Patient is morning. Still receiving intravenous Cardene drip. Blood pressure is better than yesterday. No headache today. But complaining of cramps in the legs. Lower back pain also noted. 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 The echocardiogram showing LVH pattern, otherwise nonspecific. Clinical examination unremarkable. Patient is still having anxious, and agitation. Family at bedside. Spoke to the family also. Will start the patient on losartan, hydralazine, Lopressor. The slowly been of the Cardene drip. Once the patient is blood pressure stable, can be transferred to floor Continue to monitor. Will follow the patient Objective - Vital Signs/Intake and Output Vital Signs (last 24 hours): Temp Pulse Resp BP Pulse Ox 98.6 F 80 18 185/105 H 98 09/28/17 16:00 09/28/17 20:00 09/28/17 20:00 09/28/17 19:58 09/28/17 20:00 Intake and Output: 09/28/17 09/29/17 18:59 06:59 Intake Total 2315.0 130 Output Total 1100 Balance 1215.0 130 - Medications Medications: Current Medications Baclofen (Lioresal) 10 mg PO DAILY [facility] Last Admin: 09/28/17 09:40 Dose: 10 mg Cyclobenzaprine HCl (Flexeril) 5 mg PO HS [facility] Last Admin: 09/27/17 22:23 Dose: 5 mg Famotidine (Pepcid) 20 mg PO DAILY [facility] Gabapentin (Neurontin) 300 mg PO TID [facility] Last Admin: 09/28/17 17:42 Dose: 300 mg Hydralazine HCl (Apresoline) 25 mg PO TID [facility] Last Admin: 09/28/17 17:42 Dose: 25 mg Nicardipine HCl 25 mg/ Sodium (Chloride) 250 mls @ 50 mls/hr IV .Q5H [facility]; 5 MG/ HR PRN Reason: Protocol Last Titration: 09/28/17 19:30 Dose: 2.5 mg/hr, 25 mls/hr Lorazepam (Ativan) 1 mg IVP Q6H PRN PRN Reason: Anxiety Last Admin: 09/28/17 14:10 Dose: 1 mg Lorazepam (Ativan) 2 mg IVP ONCE PRN 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
--- NOTE | 2017-09-28 23:10 | CP.PCM.PN ---
Subjective - Date & Time of Evaluation Date of Evaluation: 09/28/17 Time of Evaluation: 16:25 - Subjective Subjective: Patient seen and evaluated Denies chest pain Headache better HTN improving ECHO: Normal EF Review Of Systems Except As Marked, All Systems Reviewed And Found Negative. Constitutional: Negative for: Fever Cardiovascular: Positive for: Chest Pain Respiratory: Positive for: SOB with Excertion. Negative for: Hemoptysis Gastrointestinal: Negative for: Vomiting, Abdominal Pain Musculoskeletal: Negative for: Neck Pain, Leg Pain Skin: Negative for: Rash Neurological: Negative for: Weakness, Numbness Psych: Positive for: Anxiety Physical Exam - Physical Exam Appears: In Acute Distress Skin: Normal Color, Warm, Dry, No Rash Head: Atraumatic, Normacephalic Eye(s): bilateral: Normal Inspection, PERRL, EOMI Neck: Normal ROM, Supple Cardiovascular: Rhythm Regular, Murmur Respiratory: Normal Breath Sounds, No Accessory Muscle Use Gastrointestinal/Abdominal: Soft, No Tenderness Back: No CVA Tenderness Extremity: Normal ROM, No Pedal Edema, No Calf Tenderness Neurological/Psych: Oriented x3, Normal Motor, Normal Sensation Objective - Vital Signs/Intake and Output Vital Signs (last 24 hours): Temp Pulse Resp BP Pulse Ox 98.6 F 65 12 155/82 H 96 09/28/17 16:00 09/28/17 23:00 09/28/17 23:00 09/28/17 22:58 09/28/17 23:00 Intake and Output: 09/28/17 09/29/17 18:59 06:59 Intake Total 2315.0 300 Output Total 1100 Balance 1215.0 300 - Medications Medications: Current Medications Baclofen (Lioresal) 10 mg PO DAILY [facility] Last Admin: 09/28/17 09:40 Dose: 10 mg Cyclobenzaprine HCl (Flexeril) 5 mg PO HS [facility] Last Admin: 09/28/17 22:18 Dose: 5 mg Famotidine (Pepcid) 20 mg PO DAILY [facility] Gabapentin (Neurontin) 300 mg PO TID [facility] Last Admin: 09/28/17 17:42 Dose: 300 mg Hydralazine HCl (Apresoline) 25 mg PO TID [facility] Last Admin: 09/28/17 17:42 Dose: 25 mg Lorazepam (Ativan) 1 mg IVP Q6H PRN PRN Reason: Anxiety Last Admin: 09/28/17 14:10 Dose: 1 mg Lorazepam (Ativan) 2 mg IVP ONCE PRN PRN 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 Losartan Potassium (Cozaar) 50 mg PO DAILY [facility] Last Admin: 09/28/17 09:40 Dose: 50 mg Metoprolol Tartrate (Lopressor) 50 mg PO BID [facility] Oxycodone/Acetaminophen (Percocet 5/325 Mg Tab) 2 tab PO Q6H PRN PRN Reason: Pain, moderate (4-7) Stop: 09/30/17 21:43 Last Admin: 09/28/17 12:05 Dose: 2 tab - Labs Labs: 09/28/17 05:46 09/28/17 05:44 PT 13.0 SECONDS (9.7-12.2) H 09/27/17 16:24 INR 1.2 09/27/17 16:24 APTT 28 SECONDS (21-34) 09/27/17 16:24 Assessment and Plan - Assessment and Plan (Free Text) Assessment: Patient is a 47 year old female with past medical history of HTN, chronic low back pain s/p spinal fusion who presented to the ED for chest discomfort, visual changes x 2 weeks. Patient was found to be in hypertensive emergency. Plan: Neurology: -Patient is AAOx3 -CT head: non-specific white matter changes -HTN work up in progress -Neurology on consult, Dr Tavera, help appreciated Cardiology: -Nicardipine iv drip -Add PO medications Respiratory: -CXR showing mild vascular congestion GI: -AST/ALT wnl -Will continue to monitor Heme/Onc: -No active issues at this time Renal: -Continue to monitor electrolytes and replete as needed -For renal artery duplex GI/DVT ppx: -Continue Pepcid 20mg PO daily -SCDs
[2017-09-29] MEDS: Oxycodone/Acetaminophen 5/325 mg Tab PO PRN ×3 (06:22→22:59)
[2017-09-29 06:23] LABS: BASO # 0.2 K/uL (0.0-0.2); BASO % 1.4 % (0.0-2.0); EOS # 0.4 K/uL (0.0-0.7); EOS % 3.2 % (0.0-4.0); HEMOGLOBIN 14.7 g/dL (11.0-16.0); LYMPH % 25.2 % (20.0-40.0); MEAN CELL VOLUME 82.3 fL (81.0-99.0); MEAN CORPUSCULAR HEMOGLOBIN 26.7 pg (27.0-31.0); MEAN CORPUSCULAR HGB CONC 32.4 g/dL (33.0-37.0); MEAN PLATELET VOLUME 7.9 fL (7.2-11.7); MONO # 0.9 K/uL (0.0-0.8); MONO % 7.4 % (0.0-10.0); NEUT # 7.5 K/uL (1.8-7.0); NEUT % 62.8 % (50.0-75.0); NRBC % 0.1 % (0.0-2.0); RBC 5.52 Mil/uL (3.80-5.20); RED CELL DISTRIBUTION WIDTH 19.3 % (11.5-14.5)
[2017-09-29 06:44] LABS: ALB/GLOB RATIO 1.1 (1.0-2.1); CALCIUM 9.4 mg/dl (8.6-10.4)
--- NOTE | 2017-09-29 11:31 | CP.CCUPN ---
CCU Subjective - Physician Review Subjective (Free Text): 09/29/17 11:27 Patient seen and examined at bedside. Per nursing no acute events overnight. Patient is currently off nicardipine drip. States that she is feeling better. Leg cramping has improved. Offers no new complaints at this time. Admits to occasionally feeling dizzy. Denies headaches, cp, palpitations, abdominal pain, urinary symptoms. CCU Objective - Vital Signs / Intake & Output Vital Signs (Last 4 hours): Vital Signs Temp Pulse Resp BP Pulse Ox 09/29/17 10:00 76 17 93 L 09/29/17 09:58 74 10 L 196/117 H 93 L 09/29/17 09:00 92 H 24 83 L 09/29/17 08:58 80 20 189/112 H 96 09/29/17 08:00 97.8 F 81 24 96 09/29/17 07:58 83 12 175/116 H 96 09/29/17 07:35 87 19 170/98 H 96 Intake and Output (Last 8hrs): Intake & Output 09/28/17 09/29/17 09/29/17 22:59 06:59 14:59 Intake Total 1187.5 390 360 Output Total 800 400 0 Balance 387.5 -10 360 Weight 77.252 kg Intake: IV 240 Intake, IV Amount 557.5 0 Left Hand 237.5 0 left arm 320 Oral 390 390 360 Output: Urine 800 400 0 Urine, Voided 800 400 0 - Physical Exam Head: Positive for: Atraumatic, Normocephalic Pupils: Positive for: PERRL Extroacular Muscles: Positive for: EOMI Conjunctiva: Positive for: Normal Mouth: Positive for: Moist Mucous Membranes Neck: Positive for: Normal Range of Motion Respiratory/Chest: Positive for: Clear to Auscultation, Good Air Exchange. Negative for: Respiratory Distress Cardiovascular: Positive for: Regular Rate and Rhythm, Normal S1, S2 Abdomen: Positive for: Normal Bowel Sounds. Negative for: Tenderness, Distention Upper Extremity: Negative for: Cyanosis, Edema Lower Extremity: Negative for: Edema Neurological: Positive for: CN II-XII Intact Skin: Positive for: Warm, Dry Psychiatric: Positive for: Alert, Oriented x 3 - Medications Active Medications: Active Medications Generic Name Dose Route Start Last Admin Trade Name Freq PRN Reason Stop Dose Admin Baclofen 10 mg 09/28/17 10:00 09/29/17 09:06 Lioresal PO 10 mg DAILY [facility] Administration Cyclobenzaprine HCl 5 mg 09/27/17 22:00 09/28/17 22:18 Flexeril PO 5 mg HS [facility] Administration Famotidine 20 mg 09/29/17 10:00 09/29/17 09:06 Pepcid PO 20 mg DAILY [facility] Administration Gabapentin 300 mg 09/28/17 10:00 09/29/17 09:06 Neurontin PO 300 mg TID [facility] Administration Hydralazine HCl 25 mg 09/28/17 11:03 09/29/17 09:06 Apresoline PO 25 mg TID [facility] Administration Lorazepam 1 mg 09/27/17 20:32 09/28/17 14:10 Ativan IVP 1 mg Q6H PRN Administration Anxiety Lorazepam 2 mg 09/28/17 07:13 09/29/17 10:08 Ativan IVP 2 mg ONCE 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 Losartan Potassium 50 mg 09/28/17 10:00 09/29/17 09:05 Cozaar PO 50 mg DAILY [facility] Administration Metoprolol Tartrate 50 mg 09/28/17 21:16 09/29/17 09:06 Lopressor PO 50 mg BID [facility] Administration Oxycodone/Acetaminophen 2 tab 09/27/17 21:42 09/29/17 06:22 Percocet 5/325 Mg Tab PO 09/30/17 21:43 2 tab Q6H PRN Administration Pain, moderate (4-7) - Patient Studies Lab Studies: Microbiology Studies 09/27/17 Unknown MRSA Culture (Admit) - Final Nose MRSA NOT DETECTED Lab Studies 09/29/17 09/29/17 09/28/17 Range/Units 06:10 06:10 07:42 WBC 12.0 H (4.8-10.8) K/uL RBC 5.52 H (3.80-5.20) Mil/uL Hgb 14.7 (11.0-16.0) g/dL Hct 45.4 (34.0-47.0) % MCV 82.3 (81.0-99.0) fL MCH 26.7 L (27.0-31.0) pg MCHC 32.4 L (33.0-37.0) g/dL RDW 19.3 H (11.5-14.5) % Plt Count 416 H (130-400) K/uL MPV 7.9 (7.2-11.7) fL Neut % (Auto) 62.8 (50.0-75.0) % Lymph % (Auto) 25.2 (20.0-40.0) % [place] % (Auto) 7.4 (0.0-10.0) % Eos % (Auto) 3.2 (0.0-4.0) % Baso % (Auto) 1.4 (0.0-2.0) % Neut # (Auto) 7.5 H (1.8-7.0) K/uL Lymph # (Auto) 3.0 (1.0-4.3) K/uL [place] # (Auto) 0.9 H (0.0-0.8) K/uL Eos # (Auto) 0.4 (0.0-0.7) K/uL Baso # (Auto) 0.2 (0.0-0.2) K/uL Sodium 138 (132-148) mmol/L Potassium 4.1 (3.6-5.2) mmol/L Chloride 103 (98-107) mmol/L Carbon Dioxide 22 (22-30) mmol/L Anion Gap 18 (10-20) BUN 25 H (7-17) mg/dL Creatinine 1.3 H (0.7-1.2) mg/dL Est GFR ( Amer) 53 Est GFR (Non-Af Amer) 44 Random Glucose 159 H (65-105) mg/dL Calcium 9.4 (8.6-10.4) mg/dl Phosphorus 4.7 H (2.5-4.5) mg/dL Magnesium 2.3 (1.6-2.3) mg/dL Total Bilirubin 0.7 (0.2-1.3) mg/dL AST 26 (14-36) U/L ALT 45 (9-52) U/L Alkaline Phosphatase 121 (38-126) U/L Total Protein 7.7 (6.3-8.3) g/dL Albumin 4.0 (3.5-5.0) g/dL Globulin 3.6 (2.2-3.9) gm/dL Albumin/Globulin Ratio 1.1 (1.0-2.1) RPR Nonreactive (NONREACTIVE) Laboratory Results - last 24 hr 09/28/17 09/29/17 09/29/17 07:42 06:10 06:10 WBC 12.0 H RBC 5.52 H Hgb 14.7 Hct 45.4 MCV 82.3 MCH 26.7 L MCHC 32.4 L RDW 19.3 H Plt Count 416 H MPV 7.9 Neut % (Auto) 62.8 Lymph % (Auto) 25.2 [place] % (Auto) 7.4 Eos % (Auto) 3.2 Baso % (Auto) 1.4 Neut # (Auto) 7.5 H Lymph # (Auto) 3.0 [place] # (Auto) 0.9 H Eos # (Auto) 0.4 Baso # (Auto) 0.2 Sodium 138 Potassium 4.1 Chloride 103 Carbon Dioxide 22 Anion Gap 18 BUN 25 H Creatinine 1.3 H Est GFR ( Amer) 53 Est GFR (Non-Af Amer) 44 Random Glucose 159 H Calcium 9.4 Phosphorus 4.7 H Magnesium 2.3 Total Bilirubin 0.7 AST 26 ALT 45 Alkaline Phosphatase 121 Total Protein 7.7 Albumin 4.0 Globulin 3.6 Albumin/Globulin Ratio 1.1 RPR Nonreactive Critical Care Progress Note - Nutrition Nutrition: Nutrition Category Date Time Status Heart Healthy Diet [DIET] Diets 09/28/17 Breakfast Active Assessment/Plan - Assessment and Plan (Free Text) Assessment: Patient is a 47 year old female with past medical history of HTN, chronic low back pain s/p spinal fusion who presented to the ED for chest discomfort, visual changes x 2 weeks. Patient was found to be in hypertensive emergency. Plan: Neurology: -Patient is AAOx3 -CT head: non-specific white matter changes -MRI of lumbar spine ordered -CRP elevated 13.12 -Continue Baclofen 10mg PO daily -Continue Gabapentin 300mg PO TID -HTN work up in progress -Neurology on consult, Dr Tavera, help appreciated Cardiology: -Nicardipine tapered off -Continue Cozaar 50mg PO daily -Lasix 40mg PO discontinued -Metoprolol 50mg PO BID -Hydralazine 25mg PO TID -BNP 1850 -Echo: mild to moderate concentric left ventricular hypertrophy -Cardiology on consult, Dr Danielle, help appreciated Respiratory: -CXR showing mild vascular congestion GI: -AST/ALT wnl -Will continue to monitor Heme/Onc: -No active issues at this time Renal: -Potassium 4.1 today -Continue to monitor electrolytes and replete as needed -For renal artery duplex tomorrow, must be NPO after midnight for study GI/DVT ppx: -Continue Pepcid 20mg PO daily -SCDs Plan discussed with Dr Perkins
--- NOTE | 2017-09-29 11:36 | CP.PCM.PN ---
<Yared Bear - Last Filed: 09/29/17 18:36> Subjective - Date & Time of Evaluation Date of Evaluation: 09/29/17 Time of Evaluation: 07:00 - Subjective Subjective: PGY2 Cardiology Progress Note for Dr. Danielle Patient seen and examined at bedside. No acute distress. C/o mild persistent back pain. She is off the Nicardipine drip and reports feeling better now. She denies headache, dizziness, confusion, chest pain, SOB, or edema. Echo showed LVH with normal EF. Despite all measures, hypertension persists, will order additional studies. Objective - Vital Signs/Intake and Output Vital Signs (last 24 hours): Temp Pulse Resp BP Pulse Ox 97.8 F 76 17 196/117 H 93 L 09/29/17 08:00 09/29/17 10:00 09/29/17 10:00 09/29/17 09:58 09/29/17 10:00 Intake and Output: 09/29/17 09/29/17 06:59 18:59 Intake Total 690 360 Output Total 400 0 Balance 290 360 - Medications Medications: Current Medications Baclofen (Lioresal) 10 mg PO DAILY [facility] Last Admin: 09/29/17 09:06 Dose: 10 mg Cyclobenzaprine HCl (Flexeril) 5 mg PO HS [facility] Last Admin: 09/28/17 22:18 Dose: 5 mg Famotidine (Pepcid) 20 mg PO DAILY [facility] Last Admin: 09/29/17 09:06 Dose: 20 mg Gabapentin (Neurontin) 300 mg PO TID [facility] Last Admin: 09/29/17 09:06 Dose: 300 mg Hydralazine HCl (Apresoline) 25 mg PO TID [facility] Last Admin: 09/29/17 09:06 Dose: 25 mg Lorazepam (Ativan) 1 mg IVP Q6H PRN PRN Reason: Anxiety Last Admin: 09/28/17 14:10 Dose: 1 mg Lorazepam (Ativan) 2 mg IVP ONCE PRN PRN Reason: infection control preventionist for MRI Last Admin: 09/29/17 10:08 Dose: 2 mg Losartan Potassium (Cozaar) 50 mg PO DAILY [facility] Last Admin: 09/29/17 09:05 Dose: 50 mg Metoprolol Tartrate (Lopressor) 50 mg PO BID [facility] Last Admin: 09/29/17 09:06 Dose: 50 mg Oxycodone/Acetaminophen (Percocet 5/325 Mg Tab) 2 tab PO Q6H PRN PRN Reason: Pain, moderate (4-7) Stop: 09/30/17 21:43 Last Admin: 09/29/17 06:22 Dose: 2 tab - Labs Labs: 09/29/17 06:10 09/29/17 06:10 PT 13.0 SECONDS (9.7-12.2) H 09/27/17 16:24 INR 1.2 09/27/17 16:24 APTT 28 SECONDS (21-34) 09/27/17 16:24 - Additional Findings Additional findings: Head: Positive for: Atraumatic, Normocephalic Pupils: Positive for: PERRL Extroacular Muscles: Positive for: EOMI Conjunctiva: Positive for: Normal Mouth: Positive for: Moist Mucous Membranes Neck: Positive for: Normal Range of Motion Respiratory/Chest: Positive for: Clear to Auscultation. Negative for: Respiratory Distress, Rales Cardiovascular: Positive for: Regular Rate and Rhythm, S1, S2 Abdomen: Positive for: Normal Bowel Sounds. Negative for: Tenderness, Distention Upper Extremity: Negative for: Edema Lower Extremity: Negative for: Edema Neurological: Positive for: CN II-XII Intact. Negative for: Numbness / Tingling Skin: Positive for: Warm, Dry, Intact Psychiatric: Positive for: Alert, Oriented x 3, Normal Affect, Normal Mood Assessment and Plan - Assessment and Plan (Free Text) Assessment: Patient is a 47 year old female with past medical history of HTN, chronic low back pain s/p spinal fusion who presented to the ED for chest discomfort, visual changes x 2 weeks. Patient was found to be in hypertensive emergency. Hypertensive emergency Patient off Nicardipine drip; goal SBP 150-180 CT head results - nonspecific white matter changes. Neuro consulted -Secondary HTN work up f/u Urine metanephrines, Free T4 f/u renal artery duplex to r/o renal artery stenosis TSH 1.27 WNL. -Check CTA of the Aorta -Continue Hydralazine, Losartan, Metrorolol -UE and LE BP evaluated, likely no coarctation of the aorta (UE BP 170/98; LE BP 231/118) Case Discussed with Dr. Shashi Bear, PGY2 <James Danielle - Last Filed: 09/29/17 22:12> Objective - Vital Signs/Intake and Output Vital Signs (last 24 hours): Temp Pulse Resp BP Pulse Ox 98.2 F 65 19 198/114 H 98 09/29/17 20:00 09/29/17 21:00 09/29/17 21:00 09/29/17 20:58 09/29/17 21:00 Intake and Output: 09/29/17 09/30/17 18:59 06:59 Intake Total 780 100 Output Total 500 0 Balance 280 100 - Medications Medications: Current Medications Baclofen (Lioresal) 10 mg PO DAILY [facility] Last Admin: 09/29/17 09:06 Dose: 10 mg Famotidine (Pepcid) 20 mg PO DAILY [facility] Last Admin: 09/29/17 09:06 Dose: 20 mg Gabapentin (Neurontin) 300 mg PO TID [facility] Last Admin: 09/29/17 17:09 Dose: 300 mg Hydralazine HCl (Apresoline) 50 mg PO TID [facility] Last Admin: 09/29/17 17:09 Dose: 50 mg Lorazepam (Ativan) 1 mg IVP Q6H PRN PRN Reason: Anxiety Last Admin: 09/28/17 14:10 Dose: 1 mg Lorazepam (Ativan) 2 mg IVP ONCE PRN PRN Reason: infection control preventionist for MRI Last Admin: 09/29/17 10:08 Dose: 2 mg Losartan Potassium (Cozaar) 50 mg PO DAILY [facility] Last Admin: 09/29/17 09:05 Dose: 50 mg Metoprolol Tartrate (Lopressor) 50 mg PO BID [facility] Last Admin: 09/29/17 17:09 Dose: 50 mg Oxycodone/Acetaminophen (Percocet 5/325 Mg Tab) 2 tab PO Q6H PRN PRN Reason: Pain, moderate (4-7) Stop: 09/30/17 21:43 Last Admin: 09/29/17 17:09 Dose: 2 tab - Labs Labs: 09/29/17 06:10 09/29/17 06:10 PT 13.0 SECONDS (9.7-12.2) H 09/27/17 16:24 INR 1.2 09/27/17 16:24 APTT 28 SECONDS (21-34) 09/27/17 16:24 Assessment and Plan - Assessment and Plan (Free Text) Assessment: Patient seen and evaluated personally by me case reviewed with the Resident and as documented
[2017-09-29] MEDS ORDERED: Labetalol 25mg/5ml Syringe IVP STA ×2 (12:25→19:43)
--- NOTE | 2017-09-29 12:28 | CARD ---
APPROVED REPORT EKG Measurement Heart [id number] <Conclusion> Sinus tachycardia Biatrial enlargement Left axis deviation Pulmonary disease pattern Left ventricular hypertrophy Nonspecific ST and T wave abnormality Abnormal ECG
[2017-09-29] MEDS ORDERED: Labetalol 25mg/5ml Syringe IVP ONE (12:30)
--- NOTE | 2017-09-29 12:41 | PN ---
DATE: 09/29/2017 TIME OF EVALUATION: 07:05 a.m. NEUROLOGICAL PROBLEM: Headache, which is probably related to her accelerated hypertension, which has resolved. Chronic low back syndrome, post laminectomy syndrome, left L4 and L5 radiculopathy. PHYSICAL EXAMINATION: VITAL SIGNS: Blood pressure 186/122-145, respiratory rate of 15, pulse rate 99, regular. Afebrile. GENERAL: The patient is off Marcaine drip. He is on hydralazine only. The patient seems to be very comfortable, slept good. There is no headache at present, lower back pain also somewhat improved with current medication. Examination is unchanged consistent with left L4 and L5 radiculopathy. The patient agreed to go for MRI of the lumbosacral spine today. LABORATORY DATA: Her recent workup: WBC 12.0, hemoglobin 14.7, hematocrit 45.4, platelets 416. Sodium 138, potassium 4.1, chloride 103, bicarbonate 22, BUN 25, creatinine 1.3, GFR 53, glucose 159, CPK 13.12, LDH 796. RPR nonreactive, RTS is 1.27, homocysteine 8.5. The patient agreed to go for MRI today. The patient will be going for MRI of the lumbosacral spine, to continue the conservative management and blood pressure control, keep the mean artery pressure around 100. The patient's medications have been titrated as she can tolerate. EMG and nerve conduction study should be done as outpatient. The patient definitely needs polysomnogram to rule in sleep-related breathing disorder. That can be done as outpatient. The patient will be followed closely with you. Rodrick Tavera MD
--- NOTE | 2017-09-29 12:41 | MRI ---
PROCEDURE: MR LUMBAR SPINE WITHOUT CONTRAST HISTORY: post lami with fusion COMPARISON: Lumbar spine MRI with and without contrast 03/20/2015. TECHNIQUE: Multiecho multiplanar sequences were performed through the lumbar spine without the use of intravenous contrast. FINDINGS: Normal lumbar curvature is preserved with the patient again seen to be status post bilateral L4 and L5 laminectomies again noted as well as posterior fusion by transpedicular screws and interconnecting rods at L3-L4. Bony spinal fusion is suspected at L4 and L5 posterior elements potentially through S1 as well. Intervertebral fusion device identified L3-4 and, L4-5 and L5-S1 vertebral disc spaces once again. Artifacts from the transpedicular screws obscure the L3 and L4 vertebral body somewhat. No suspicious matter signal changes are identified nevertheless. Conus medullaris remains normal appearing, terminating at L1 with no suspicious prevertebral or paraspinal soft tissues changes identified in the interval. T12-L1: No disc herniation, spinal canal stenosis or neural foraminal narrowing. Symmetric facet joint degenerative change are reiterated. L1-2: No disc herniation, spinal canal stenosis or neural foraminal narrowing. Symmetric facet joint degenerative change are reiterated. L2-3: No interval disc herniation is identified though moderate facet joint degenerative arthropathy is appreciated. Still, the central canal remains widely patent as well as the bilateral neural foramina. L3-4: Central canal appears widely patent once again without interval change. Prior bilateral laminectomy/medial facetectomy again evident decompressing the central canal. The bilateral neural foramina are remain widely patent. L4-5: The central canal remains widely patent once again status post bilateral laminectomy/medial facetectomy. No interval neural foraminal stenosis with both remaining widely patent once again. L5-S1: No interval spinal canal or neural foraminal stenosis appreciated this patient status post bilateral L5 laminectomy/medial facetectomy once again with the central canal widely patent and bilateral neural foramina. OTHER FINDINGS: None. IMPRESSION: 1. Stable decompression of the L3-4 and L4-5 as well as L5-S1 central canals by bilateral L4 and L5 laminectomy/facetectomy once again without interval stenosis identified. Bilateral neural foramina remain widely patent at these levels with bilateral L3-L4 spinal fusion as well as L3-4, L4-5 and L5-S1 intervertebral fusion discs remain intact. 2. Normal curvature without interval spondylolisthesis.
--- NOTE | 2017-09-29 22:25 | CP.PCM.PN ---
Subjective - Date & Time of Evaluation Date of Evaluation: 09/29/17 Time of Evaluation: 22:23 - Subjective Subjective: Patient currently feeling better. No headache. Still having minimal chest discomfort. No nausea, no vomiting, has a BM. Urine output is normal. Leg swelling is better Vital signs reviewed No neck vein distention noted Chest good air entry bilaterally, no wheezing or rales noted CVS regular heart sound, no murmur noted Abdomen soft, nontender. Extremities no pedal edema PERSONNEL COORDINATOR alert awake oriented -3, no functional neurological deficit Recent labs reviewed The creatinine is 1.3 Assessment/plan: 47-year-old female with history of lower back pain, chronic hypertension. Patient was noncompliant with medication for blood pressure, possibly having very elevated high blood pressure for a long time, associated with LVH. Currently multiple medications, the blood pressure is not improving. But because of the worsening renal insufficiency, we will closely monitor the blood pressure and keep the pressure on the high side. We'll get the nephrology evaluation. Renal arterial Doppler study, metanephrines, thyroid levels in the morning P We'll possibly discharge the patient tomorrow if it is stable. Patient is also very anxious, and sometimes agitated. Patient is also on multiple pain medications, and antianxiety medications. Objective - Vital Signs/Intake and Output Vital Signs (last 24 hours): Temp Pulse Resp BP Pulse Ox 98.2 F 65 19 198/114 H 98 09/29/17 20:00 09/29/17 21:00 09/29/17 21:00 09/29/17 20:58 09/29/17 21:00 Intake and Output: 09/29/17 09/30/17 18:59 06:59 Intake Total 780 100 Output Total 500 0 Balance 280 100 - Medications Medications: Current Medications Amlodipine Besylate (Norvasc) 5 mg PO DAILY [facility] Baclofen (Lioresal) 10 mg PO DAILY [facility] Last Admin: 09/29/17 09:06 Dose: 10 mg Famotidine (Pepcid) 20 mg PO DAILY [facility] Last Admin: 09/29/17 09:06 Dose: 20 mg Gabapentin (Neurontin) 300 mg PO TID [facility] Last Admin: 09/29/17 17:09 Dose: 300 mg Hydralazine HCl (Apresoline) 50 mg PO TID [facility] Last Admin: 09/29/17 17:09 Dose: 50 mg Lorazepam (Ativan) 1 mg IVP Q6H PRN PRN Reason: Anxiety Last Admin: 09/28/17 14:10 Dose: 1 mg Losartan Potassium (Cozaar) 50 mg PO DAILY [facility] Last Admin: 09/29/17 09:05 Dose: 50 mg Metoprolol Tartrate (Lopressor) 50 mg PO BID [facility] Last Admin: 09/29/17 17:09 Dose: 50 mg Oxycodone/Acetaminophen (Percocet 5/325 Mg Tab) 2 tab PO Q6H PRN PRN Reason: Pain, moderate (4-7) Stop: 09/30/17 21:43 Last Admin: 09/29/17 17:09 Dose: 2 tab - Labs Labs: 09/29/17 06:10 09/29/17 06:10 PT 13.0 SECONDS (9.7-12.2) H 09/27/17 16:24 INR 1.2 09/27/17 16:24 APTT 28 SECONDS (21-34) 09/27/17 16:24
[2017-09-30 06:26] LABS: BASO # 0.1 K/uL (0.0-0.2); BASO % 1.4 % (0.0-2.0); EOS # 0.3 K/uL (0.0-0.7); EOS % 3.9 % (0.0-4.0); HEMOGLOBIN 13.3 g/dL (11.0-16.0); LYMPH # 2.7 K/uL (1.0-4.3); LYMPH % 31.6 % (20.0-40.0); MEAN CELL VOLUME 83.3 fL (81.0-99.0); MEAN CORPUSCULAR HGB CONC 32.4 g/dL (33.0-37.0); MEAN PLATELET VOLUME 7.8 fL (7.2-11.7); MONO # 0.7 K/uL (0.0-0.8); MONO % 8.6 % (0.0-10.0); NEUT # 4.7 K/uL (1.8-7.0); NEUT % 54.5 % (50.0-75.0); NRBC % 0.1 % (0.0-2.0); RBC 4.92 Mil/uL (3.80-5.20); RED CELL DISTRIBUTION WIDTH 19.6 % (11.5-14.5); WHITE BLOOD COUNT 8.5 K/uL (4.8-10.8)
[2017-09-30 06:34] LABS: ALBUMIN 3.4 g/dL (3.5-5.0); ALT/SGPT 32 U/L (9-52); AST/SGOT 15 U/L (14-36); BLOOD UREA NITROGEN 27 mg/dL (7-17); CALCIUM 9.1 mg/dl (8.6-10.4); GFR AFRICAN-AMERICAN > 60; GFR NON-AFRICAN AMERICAN 53
--- NOTE | 2017-09-30 10:38 | PN ---
DATE: 09/30/2017 NEUROLOGICAL PROBLEM: Accelerated hypertension with headache, which is resolved at present. Postlaminectomy pain syndrome which is also well controlled at present with the current management. PHYSICAL EXAMINATION: VITAL SIGNS: Blood pressure 171/96 with mean arterial pressure of 150, pulse rate 67 and regular, respiratory rate 16. GENERAL: The patient is seen with her . She is more awake and alert. No headache. Slept good. Her back pain is also considerably well controlled. Examination still which is unchanged to compare with the previous exam. LABORATORY DATA: Her recommended blood work: Sed rate 7, CRP 13.2, homocysteine 18.5, TSH 1.74, RPR nonreactive, immunofixation still pending, Lyme disease and also the Western Blot test still pending. RECOMMENDATION: Continue the current management with baclofen and gabapentin. The patient is neurologically cleared. No further workup is needed. The patient is recommended to have electrodiagnostic studies which can be done as outpatient for further management of her lower back pain syndrome. Again, no narcotic is recommended. Rodrick Tavera MD
--- NOTE | 2017-09-30 11:13 | CP.PCM.CON ---
History of Present Illness - History of Present Illness History of Present Illness: 47-year-old female with a known history of high blood pressure, also chronic lower back pain, status post spinal fusion, patient came to the emergency room with the symptoms of chest discomfort. Not compliant with BP med- losartan/HCT Patient was having ongoing pain for almost 3 weeks, the patient reported chest discomfort in the anterior chest area, nonradiating pain noted. Patient is extremely anxious. Complaining of headache. She was also having some nausea, but no vomiting. She denies any diarrhea. No urinary symptoms. She did not have any dizzines/ no LOC Patient the past was noted to have high blood pressure, but the patient was not on any medications recently. She stopped taking medications almost a year now. Patient did not monitor to check her blood pressure recently. She was having some blurring vision occasionally. Admitted with severe HTN and atypical CPs Past medical history: Hypertension, multiple disc disease, spinal fusion. Anxiety Surgical history: Spinal fusion Allergies: No known drug allergies Family history: Significant history of hypertension, heart disease noted- 2 sisters exp from MIs , had severe HTN; mother exp with [place] Review of system: Patient is currently having some headache pain Chest discomfort noted. Denies any nausea or vomiting. No abdominal symptoms. Denies any leg pain, but the patient is having on and off leg comes from the spinal fusion surgery Review of Systems - Constitutional Constitutional: Fatigue, Weakness - EENT Eyes: Blurred Vision Ears: absent: As Per HPI, Decreased Hearing, Ear Discharge, Ear Pain, Tinnitus, Abnormal Hearing, Disequilibrium, Dizziness, Other Nose/Mouth/Throat: absent: As Per HPI, Epistaxis, Nasal Congestion, Nasal Discharge, Nasal Obstruction, Nasal Trauma, Nose Pain, Post Nasal Drip, Sinus Pain, Sinus Pressure, Bleeding Gums, Change in Voice, Dental Pain, Dry Mouth, Dysphagia, Halitosis, Hoarsness, Lip Swelling, Mouth Lesions, Mouth Pain, Odynophagia, Sore Throat, Throat Swelling, Tongue Swelling, Facial Pain, Neck Pain, Neck Mass, Other - Cardiovascular Cardiovascular: Chest Pain at Rest, Dyspnea on Exertion - Respiratory Respiratory: absent: As Per HPI, Cough, Dyspnea, Hemoptysis, Dyspnea on Exertion , Wheezing, Snoring, Stridor, Pain on Inspiration, Chest Congestion, Excessive Mucous Production, Change in Mucous Color, Pain with Coughing, Other - Gastrointestinal Gastrointestinal: absent: As Per HPI, Abdominal Pain, Belching, Bloating, Change in Bowel Habits, Change in Stool Character, Coffee Ground Emesis, Constipation, Cramping, Diarrhea, Dyspepsia, Dysphagia, Early Satiety, Excessive Flatus, Fecal Incontinence, Heartburn, Hematemesis, Hematochezia, Loose Stools, Melena, Nausea, Odynophagia, Temesmus, Vomiting, Other - Genitourinary Genitourinary: absent: As Per HPI, Change in Urinary Stream, Difficulty Urinating, Dysuria, Flank Pain, Hematuria, Pyuria, Nocturia, Urinary Incontinence, Urinary Frequency, Urinary Hesitance, Urinary Urgency, Voiding Freq/Small Amts, Freq UTI, Hx Renal/Bladder Calculi, Hx /Renal Surgery, Bladder Distension, Other - Musculoskeletal Musculoskeletal: Muscle Cramps, Myalgias - Integumentary Integumentary: absent: As Per HPI, Acne, Alopecia, Bleeding Lesions, Change in Hair, Change in Nails, Change in Pigmentation, Changing Lesions, Dry Skin, Erythema, Furuncle, Hirsutism, Lesions, New Lesions, Non-Healing Lesions, Photosensitivity, Pruritus, Rash, Skin Pain, Skin Ulcer, Sores, Striae, Swelling , Unusual Bruising, Wounds, Jaundice, Other - Neurological Neurological: Weakness Past Patient History - Past Medical History & Family History Past Medical History?: Yes - Past Social History Smoking Status: Heavy Smoker > 10 Cigarettes Daily Chewing Tobacco Use: No Cigar Use: No Alcohol: Occasional Drugs: Denies Home Situation {Lives}: With Family - CARDIAC Hx Hypertension: Yes (noncompliant with meds) - PULMONARY Hx Respiratory Disorders: No - NEUROLOGICAL Hx Paralysis: No - HEENT Hx HEENT Problems: No - RENAL Hx Chronic Kidney Disease: No - ENDOCRINE/METABOLIC Hx Endocrine Disorders: No - HEMATOLOGICAL/ONCOLOGICAL Hx Blood Transfusions: No - INTEGUMENTARY Hx Dermatological Problems: No - MUSCULOSKELETAL/RHEUMATOLOGICAL Hx Musculoskeletal Disorders: Yes - GASTROINTESTINAL Hx Gastrointestinal Disorders: No - GENITOURINARY/GYNECOLOGICAL Hx Genitourinary Disorders: No - PSYCHIATRIC Hx Anxiety: Yes Hx Substance Use: No - SURGICAL HISTORY Hx Surgeries: Yes - ANESTHESIA Hx Anesthesia Reactions: No Hx Malignant Hyperthermia: No Meds Allergies/Adverse Reactions: Allergies Allergy/AdvReac Type Severity Reaction Status Date / Time No Known Allergies Allergy Verified 09/27/17 15:34 - Medications Medications: Current Medications Amlodipine Besylate (Norvasc) 5 mg PO DAILY [facility] Last Admin: 09/30/17 09:46 Dose: 5 mg Baclofen (Lioresal) 10 mg PO DAILY [facility] Last Admin: 09/30/17 09:48 Dose: 10 mg Famotidine (Pepcid) 20 mg PO DAILY [facility] Last Admin: 09/30/17 09:46 Dose: 20 mg Gabapentin (Neurontin) 300 mg PO TID [facility] Last Admin: 09/30/17 09:46 Dose: 300 mg Hydralazine HCl (Apresoline) 50 mg PO TID [facility] Last Admin: 09/30/17 09:46 Dose: 50 mg Lorazepam (Ativan) 1 mg IVP Q6H PRN PRN Reason: Anxiety Last Admin: 09/28/17 14:10 Dose: 1 mg Losartan Potassium (Cozaar) 50 mg PO DAILY [facility] Last Admin: 09/30/17 09:46 Dose: 50 mg Metoprolol Tartrate (Lopressor) 50 mg PO BID [facility] Last Admin: 09/30/17 09:46 Dose: 50 mg Oxycodone/Acetaminophen (Percocet 5/325 Mg Tab) 2 tab PO Q6H PRN PRN Reason: Pain, moderate (4-7) Stop: 09/30/17 21:43 Last Admin: 09/29/17 22:59 Dose: 2 tab Physical Exam - Constitutional Appears: Non-toxic, No Acute Distress - Head Exam Head Exam: ATRAUMATIC, NORMAL INSPECTION - Eye Exam Eye Exam: EOMI, Normal appearance - Neck Exam Neck exam: Positive for: Normal Inspection. Negative for: Tenderness - Respiratory Exam Respiratory Exam: Clear to Auscultation Bilateral, NORMAL BREATHING PATTERN - Cardiovascular Exam Cardiovascular Exam: REGULAR RHYTHM, +S1 - GI/Abdominal Exam GI & Abdominal Exam: Soft. absent: Tenderness - Extremities Exam Extremities exam: Positive for: normal inspection. Negative for: tenderness - Neurological Exam Neurological exam: Alert, CN II-XII Intact - Skin Skin Exam: Dry, Warm Results - Vital Signs Recent Vital Signs: Last Vital Signs Temp 98.0 F 09/30/17 08:00 Pulse 78 09/30/17 10:00 Resp 20 09/30/17 08:00 BP 205/125 H 09/30/17 08:00 Pulse Ox 98 09/30/17 08:00 - Labs Result Diagrams: 09/30/17 06:12 09/30/17 06:10 Labs: Laboratory Results - last 24 hr 09/28/17 09/28/17 09/29/17 07:28 07:42 12:53 WBC RBC Hgb Hct MCV MCH MCHC RDW Plt Count MPV Neut % (Auto) Lymph % (Auto) [place] % (Auto) Eos % (Auto) Baso % (Auto) Neut # (Auto) Lymph # (Auto) [place] # (Auto) Eos # (Auto) Baso # (Auto) Sodium Potassium Chloride Carbon Dioxide Anion Gap BUN Creatinine Est GFR ( Amer) Est GFR (Non-Af Amer) Random Glucose Calcium Phosphorus Magnesium Total Bilirubin AST ALT Alkaline Phosphatase Total Protein Albumin Globulin Albumin/Globulin Ratio Angiotensin Convert Enz 11 Free T4 TSH 3rd Generation 0.86 Serum Immunofixation Not detected Urine Immunofixation Not detected 09/29/17 09/30/17 09/30/17 12:53 06:10 06:12 WBC 8.5 RBC 4.92 Hgb 13.3 Hct 41.0 MCV 83.3 MCH 27.0 MCHC 32.4 L RDW 19.6 H Plt Count 359 MPV 7.8 Neut % (Auto) 54.5 Lymph % (Auto) 31.6 [place] % (Auto) 8.6 Eos % (Auto) 3.9 Baso % (Auto) 1.4 Neut # (Auto) 4.7 Lymph # (Auto) 2.7 [place] # (Auto) 0.7 Eos # (Auto) 0.3 Baso # (Auto) 0.1 Sodium 141 Potassium 4.5 Chloride 107 Carbon Dioxide 22 Anion Gap 16 BUN 27 H Creatinine 1.1 Est GFR ( Amer) > 60 Est GFR (Non-Af Amer) 53 Random Glucose 145 H Calcium 9.1 Phosphorus 5.4 H Magnesium 2.0 Total Bilirubin 0.4 AST 15 ALT 32 Alkaline Phosphatase 96 Total Protein 6.8 Albumin 3.4 L Globulin 3.3 Albumin/Globulin Ratio 1.0 Angiotensin Convert Enz Free T4 1.17 TSH 3rd Generation 1.74 Serum Immunofixation Urine Immunofixation Assessment & Plan (1) HTN (hypertension) Status: Acute (2) Atypical chest pain Status: Acute (3) Hypertensive emergency Status: Acute - Assessment and Plan (Free Text) Plan: Agree with pheo workup Check dopplers for possible COLT Would check renin/gildardo- did present with hypokalemia Change metoprolol to carvedilol; add diuretics
[2017-09-30] MEDS: Oxycodone/Acetaminophen 5/325 mg Tab PO PRN ×2 (12:39→19:02)
[2017-09-30 13:30] LABS: 23 KD (IGG) BAND Nonreactive
--- NOTE | 2017-09-30 20:12 | CP.PCM.PN ---
Subjective - Date & Time of Evaluation Date of Evaluation: 09/30/17 Time of Evaluation: 20:10 - Subjective Subjective: pt bp still high seen by renal started on oral meds now with different awaiting for the 24 urine collection will watch her for one more day on if BP <180/<110 mmhg will d/c home tomorrow Objective - Vital Signs/Intake and Output Vital Signs (last 24 hours): Temp Pulse Resp BP Pulse Ox 98.6 F 64 18 181/101 H 100 09/30/17 16:00 09/30/17 16:00 09/30/17 16:00 09/30/17 17:58 09/30/17 16:00 Intake and Output: 09/30/17 10/01/17 18:59 06:59 Intake Total 1080 Output Total 550 150 Balance 530 -150 - Medications Medications: Current Medications Amlodipine Besylate (Norvasc) 10 mg PO DAILY [facility] Baclofen (Lioresal) 10 mg PO DAILY [facility] Last Admin: 09/30/17 09:48 Dose: 10 mg Carvedilol (Coreg) 12.5 mg PO BID [facility] Last Admin: 09/30/17 17:58 Dose: 12.5 mg Chlorthalidone (Hygroton) 25 mg PO DAILY [facility] Last Admin: 09/30/17 11:59 Dose: 25 mg Famotidine (Pepcid) 20 mg PO DAILY [facility] Last Admin: 09/30/17 09:46 Dose: 20 mg Gabapentin (Neurontin) 300 mg PO TID [facility] Last Admin: 09/30/17 17:58 Dose: 300 mg Hydralazine HCl (Apresoline) 50 mg PO TID [facility] Last Admin: 09/30/17 17:58 Dose: 50 mg Lorazepam (Ativan) 1 mg IVP Q6H PRN PRN Reason: Anxiety Last Admin: 09/28/17 14:10 Dose: 1 mg Oxycodone/Acetaminophen (Percocet 5/325 Mg Tab) 2 tab PO Q6H PRN PRN Reason: Pain, moderate (4-7) Stop: 09/30/17 21:43 Last Admin: 09/30/17 19:02 Dose: 2 tab - Labs Labs: 09/30/17 06:12 09/30/17 06:10 PT 13.0 SECONDS (9.7-12.2) H 09/27/17 16:24 INR 1.2 09/27/17 16:24 APTT 28 SECONDS (21-34) 09/27/17 16:24
[2017-09-30 21:13] VITALS: O2SAT 96
--- NOTE | 2017-09-30 21:47 | CP.PCM.PN ---
Subjective - Date & Time of Evaluation Date of Evaluation: 09/30/17 Time of Evaluation: 10:30 - Subjective Subjective: Patient seen and evaluated HTN still not controlled Renal consult appreciated Review Of Systems Except As Marked, All Systems Reviewed And Found Negative. Constitutional: Negative for: Fever Cardiovascular: Positive for: Chest Pain Respiratory: Positive for: SOB with Excertion. Negative for: Hemoptysis Gastrointestinal: Negative for: Vomiting, Abdominal Pain Musculoskeletal: Negative for: Neck Pain, Leg Pain Skin: Negative for: Rash Neurological: Negative for: Weakness, Numbness Psych: Positive for: Anxiety Physical Exam - Physical Exam Appears: In Acute Distress Skin: Normal Color, Warm, Dry, No Rash Head: Atraumatic, Normacephalic Eye(s): bilateral: Normal Inspection, PERRL, EOMI Neck: Normal ROM, Supple Cardiovascular: Rhythm Regular, Murmur Respiratory: Normal Breath Sounds, No Accessory Muscle Use Gastrointestinal/Abdominal: Soft, No Tenderness Back: No CVA Tenderness Extremity: Normal ROM, No Pedal Edema, No Calf Tenderness Neurological/Psych: Oriented x3, Normal Motor, Normal Sensation Objective - Vital Signs/Intake and Output Vital Signs (last 24 hours): Temp Pulse Resp BP Pulse Ox 98.4 F 74 20 215/112 H 96 09/30/17 20:00 09/30/17 20:45 09/30/17 20:45 09/30/17 21:20 09/30/17 20:45 Intake and Output: 09/30/17 10/01/17 18:59 06:59 Intake Total 1080 Output Total 550 150 Balance 530 -150 - Medications Medications: Current Medications Amlodipine Besylate (Norvasc) 10 mg PO Q12H [facility] Baclofen (Lioresal) 10 mg PO DAILY [facility] Last Admin: 09/30/17 09:48 Dose: 10 mg Carvedilol (Coreg) 12.5 mg PO Q12H [facility] Last Admin: 09/30/17 21:20 Dose: 12.5 mg Chlorthalidone (Hygroton) 25 mg PO DAILY [facility] Last Admin: 09/30/17 11:59 Dose: 25 mg Famotidine (Pepcid) 20 mg PO DAILY [facility] Last Admin: 09/30/17 09:46 Dose: 20 mg Gabapentin (Neurontin) 300 mg PO TID [facility] Last Admin: 09/30/17 17:58 Dose: 300 mg Hydralazine HCl (Apresoline) 50 mg PO Q8 [facility] Last Admin: 09/30/17 21:20 Dose: 50 mg Lorazepam (Ativan) 1 mg IVP Q6H PRN PRN Reason: Anxiety Last Admin: 09/28/17 14:10 Dose: 1 mg - Labs Labs: 09/30/17 06:12 09/30/17 06:10 PT 13.0 SECONDS (9.7-12.2) H 09/27/17 16:24 INR 1.2 09/27/17 16:24 APTT 28 SECONDS (21-34) 09/27/17 16:24 Assessment and Plan - Assessment and Plan (Free Text) Assessment: Patient is a 47 year old female with past medical history of HTN, chronic low back pain s/p spinal fusion who presented to the ED for chest discomfort, visual changes x 2 weeks. Patient was found to be in hypertensive emergency. Hypertensive emergency Patient off Nicardipine drip; goal SBP 150-180 CT head results - nonspecific white matter changes. Neuro consulted -Secondary HTN work up f/u Urine metanephrines, Free T4 f/u renal artery duplex to r/o renal artery stenosis TSH 1.27 WNL. -Check CTA of the Aorta -Continue Hydralazine, Losartan, Metrorolol -UE and LE BP evaluated, likely no coarctation of the aorta (UE BP 170/98; LE BP 231/118)
[2017-10-01 04:18] VITALS: TEMP 98.5
[2017-10-01] MEDS: Oxycodone/Acetaminophen 5/325 mg Tab PO PRN ×2 (06:59→13:12)
[2017-10-01 07:39] VITALS: RESP 18
--- NOTE | 2017-10-01 08:54 | CP.PCM.PN ---
Subjective - Date & Time of Evaluation Date of Evaluation: 10/01/17 Time of Evaluation: 08:51 - Subjective Subjective: Feels better; no dyspnea, chest pains HTN work up in progress Renal scan results pending HTN better- still elevated moderately Objective - Vital Signs/Intake and Output Vital Signs (last 24 hours): Temp Pulse Resp BP Pulse Ox 98.5 F 74 18 160/92 H 96 10/01/17 04:00 10/01/17 07:00 10/01/17 07:00 10/01/17 07:00 09/30/17 20:45 Intake and Output: 10/01/17 10/01/17 06:59 18:59 Intake Total 400 Output Total 700 Balance -300 - Medications Medications: Current Medications Amlodipine Besylate (Norvasc) 10 mg PO Q12H [facility] Last Admin: 09/30/17 22:02 Dose: 10 mg Baclofen (Lioresal) 10 mg PO DAILY [facility] Last Admin: 09/30/17 09:48 Dose: 10 mg Carvedilol (Coreg) 12.5 mg PO Q12H [facility] Last Admin: 09/30/17 21:20 Dose: 12.5 mg Chlorthalidone (Hygroton) 25 mg PO DAILY [facility] Last Admin: 09/30/17 11:59 Dose: 25 mg Famotidine (Pepcid) 20 mg PO DAILY [facility] Last Admin: 09/30/17 09:46 Dose: 20 mg Gabapentin (Neurontin) 300 mg PO TID [facility] Last Admin: 09/30/17 17:58 Dose: 300 mg Hydralazine HCl (Apresoline) 50 mg PO Q8 [facility] Last Admin: 10/01/17 05:54 Dose: 50 mg Lorazepam (Ativan) 1 mg IVP Q6H PRN PRN Reason: Anxiety Last Admin: 09/30/17 22:27 Dose: 1 mg Oxycodone/Acetaminophen (Percocet 5/325 Mg Tab) 2 tab PO Q6H PRN PRN Reason: Pain, severe (8-10) Stop: 10/04/17 06:46 Last Admin: 10/01/17 06:59 Dose: 2 tab - Labs Labs: 09/30/17 06:12 09/30/17 06:10 PT 13.0 SECONDS (9.7-12.2) H 09/27/17 16:24 INR 1.2 03/12/18 16:24 APTT 28 SECONDS (21-34) 09/27/17 16:24 - Constitutional Appears: Chronically Ill - Head Exam Head Exam: ATRAUMATIC, NORMAL INSPECTION - Eye Exam Eye Exam: EOMI, Normal appearance - Neck Exam Neck Exam: Normal Inspection. absent: Tenderness - Respiratory Exam Respiratory Exam: NORMAL BREATHING PATTERN - Cardiovascular Exam Cardiovascular Exam: REGULAR RHYTHM - GI/Abdominal Exam GI & Abdominal Exam: absent: Tenderness - Extremities Exam Extremities Exam: Normal Inspection. absent: Tenderness - Neurological Exam Neurological Exam: Alert, CN II-XII Intact - Skin Skin Exam: Dry, Warm Assessment and Plan (1) HTN (hypertension) Status: Acute (2) Atypical chest pain Status: Acute (3) Hypertensive emergency Status: Acute - Assessment and Plan (Free Text) Plan: Likely essential HTN- has strong FH Awaiting results of workup Can increase doses of meds; add small dose aldactone for better BP control as well
--- NOTE | 2017-10-01 10:21 | VASCLAB ---
PROCEDURE: Ultrasonography renal arterial evaluation HISTORY: persistent HTN COMPARISON: None available. TECHNIQUE: Real-time ultrasonography evaluation of the renal arteries were performed. Comparison is made to the aorta. Report prepared by HOLLAND Paz, RVT FINDINGS: AORTA: Patent. Peak systolic velocity 110 centimeters/second RIGHT RENAL ARTERY: Renal artery to aorta ratio: 1.7 * Proximal segment: Patent. Peak systolic velocity 186 centimeters/second * Mid segment: Patent. Peak systolic velocity 169 centimeters/second * Distal segment: Patent. Peak systolic velocity 145 centimeters/second Other findings: Right Kidney measures approximately 10.08 centimeters. LEFT RENAL ARTERY: Renal artery to aorta ratio: 1.5 * Proximal segment: Patent. Peak systolic velocity 174 centimeters/second * Mid segment: Patent. Peak systolic velocity 160 centimeters/second * Distal segment: Patent. Peak systolic velocity 157 centimeters/second Other findings: Left Kidney measures approximately 9.57 centimeters. IMPRESSION: No definite hemodynamically significant stenosis involving the renal arteries as visualized.
[2017-10-01 10:57] VITALS: BP 161/70
--- NOTE | 2017-10-01 11:20 | PN ---
DATE: TIME OF EVALUATION: 07:05 a.m. NEUROLOGICAL PROBLEM: 1. Accelerated hypertension resulting in headache, which has been resolved. 2. 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 PHYSICAL EXAMINATION: VITAL SIGNS: Blood pressure 188/119, mean arterial pressure of 142, respiratory rate 16, temperature 98.5 with a pulse rate of 65 and regular. Her blood pressure is unstable . The patient was noted during the night, her blood pressure was somewhat close to normal with mean arterial pressure of 100. During her awake as well as second part of her sleep, her blood pressures have been high; all that denotes underlying pathology should be found out. The patient was seen by gear inspector and medications have been addressed and workup for pheochromocytoma is appreciated. The patient is medically stable. The patient can be discharged and should have followup visit with me as outpatient. Rodrick Tavera MD
[2017-10-01 15:29] LABS: SQUAMOUS EPITHIAL < 1 /hpf (0-5); URINE BILIRUBIN NEGATIVE (NEGATIVE); URINE BLOOD NEGATIVE (NEGATIVE); URINE CLARITY Clear (Clear); URINE COLOR Straw (YELLOW); URINE GLUCOSE (UA) 2+ mg/dL (Normal); URINE LEUKOCYTE ESTERASE NEG Leu/uL (Negative); URINE PROTEIN NEGATIVE (NEGATIVE); URINE UROBILINOGEN NORMAL mg/dL (0.2-1.0)
[2017-10-01 15:46] VITALS: PULSE 84
--- NOTE | 2017-10-01 15:49 | CT ---
PROCEDURE: CT Abdomen and Pelvis without Oral or IV contrast. HISTORY: adrenal hyperplasia or tumor COMPARISON: None available. TECHNIQUE: Contiguous axial images of the abdomen and pelvis. No oral or IV contrast administered. Coronal and Sagittal reformats generated and reviewed. Radiation dose: Total exam DLP = 820.08 mGy-cm. This CT exam was performed using one or more of the following dose reduction techniques: Automated exposure control, adjustment of the mA and/or kV according to patient size, and/or use of iterative reconstruction technique. FINDINGS: There is limited evaluation of the solid organs without the administration of IV contrast. LOWER THORAX: Medial left lower lobe lucencies/bulla. Mild superimposed infection is not excluded. Correlate clinically. No visible pleural effusion or pneumothorax. LIVER: Unremarkable. GALLBLADDER AND BILE DUCTS: Unremarkable. PANCREAS: Unremarkable. SPLEEN: Unremarkable. ADRENALS: Right adrenal gland hypertrophy. Left adrenal gland hypertrophy and probable 1.4 x 1.3 cm nodule measuring approximately -26 HU. KIDNEYS AND URETERS: No hydronephrosis or obstructing renal calculus. BLADDER: The urinary bladder appears unremarkable. REPRODUCTIVE: Uterus is present. APPENDIX: The presumed appendix appears within normal limits of caliber. No secondary signs of acute appendicitis. BOWEL: The stomach is nondistended. Lack of oral contrast limits evaluation for bowel pathology. The bowel loops appear within normal limits of caliber without evidence of intestinal obstruction. Diverticulosis without CT evidence of acute diverticulitis. Moderate constipation. PERITONEUM: No significant free fluid. No definite free air. LYMPH NODES: No bulky lymphadenopathy identified. VASCULATURE: No aortic aneurysm. BONES: Degenerative changes. Postsurgical changes of the lumbar spine. Please refer to lumbar spine MRI performed 09/29/17 for detailed findings. OTHER FINDINGS: None. IMPRESSION: Right adrenal gland hypertrophy. 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 MRI may be considered for confirmation. Diverticulosis without CT evidence of acute diverticulitis. Moderate constipation. Postsurgical changes of the lumbar spine. Please refer to lumbar spine MRI performed 09/29/17 for detailed findings. Medial left lower lobe lucencies/bulla. Mild superimposed infection is not excluded. Correlate clinically. Additional findings as above.
--- NOTE | 2017-10-03 20:58 | CP.PCM.DIS ---
Provider - Provider Date of Admission: 09/27/17 18:22 Attending physician: France Marti MD Time Spent in preparation of Discharge (in minutes): 45 Hospital Course - Lab Results Lab Results: Micro Results 09/27/17 Unknown Nose MRSA Culture (Admit) - Final MRSA NOT DETECTED Most Recent Lab Values WBC 8.5 K/uL (4.8-10.8) 09/30/17 06:12 RBC 4.92 Mil/uL (3.80-5.20) 09/30/17 06:12 Hgb 13.3 g/dL (11.0-16.0) 09/30/17 06:12 Hct 41.0 % (34.0-47.0) 09/30/17 06:12 MCV 83.3 fL (81.0-99.0) 09/30/17 06:12 MCH 27.0 pg (27.0-31.0) 09/30/17 06:12 MCHC 32.4 g/dL (33.0-37.0) L 09/30/17 06:12 RDW 19.6 % (11.5-14.5) H 09/30/17 06:12 Plt Count 359 K/uL (130-400) 09/30/17 06:12 MPV 7.8 fL (7.2-11.7) 09/30/17 06:12 Neut % (Auto) 54.5 % (50.0-75.0) 09/30/17 06:12 Lymph % (Auto) 31.6 % (20.0-40.0) 09/30/17 06:12 [place] % (Auto) 8.6 % (0.0-10.0) 09/30/17 06:12 Eos % (Auto) 3.9 % (0.0-4.0) 09/30/17 06:12 Baso % (Auto) 1.4 % (0.0-2.0) 09/30/17 06:12 Neut # (Auto) 4.7 K/uL (1.8-7.0) 09/30/17 06:12 Lymph # (Auto) 2.7 K/uL (1.0-4.3) 09/30/17 06:12 [place] # (Auto) 0.7 K/uL (0.0-0.8) 09/30/17 06:12 Eos # (Auto) 0.3 K/uL (0.0-0.7) 09/30/17 06:12 Baso # (Auto) 0.1 K/uL (0.0-0.2) 09/30/17 06:12 ESR 7 mm/hr (0-20) 09/28/17 06:35 PT 13.0 SECONDS (9.7-12.2) H 09/27/17 16:24 INR 1.2 09/27/17 16:24 APTT 28 SECONDS (21-34) 09/27/17 16:24 Sodium 141 mmol/L (132-148) 09/30/17 06:10 Potassium 4.5 mmol/L (3.6-5.2) 09/30/17 06:10 Chloride 107 mmol/L (98-107) 09/30/17 06:10 Carbon Dioxide 22 mmol/L (22-30) 09/30/17 06:10 Anion Gap 16 (10-20) 09/30/17 06:10 BUN 27 mg/dL (7-17) H 09/30/17 06:10 Creatinine 1.1 mg/dL (0.7-1.2) 09/30/17 06:10 Est GFR ( Amer) > 60 09/30/17 06:10 Est GFR (Non-Af Amer) 53 09/30/17 06:10 Random Glucose 145 mg/dL (65-105) H 09/30/17 06:10 Calcium 9.1 mg/dl (8.6-10.4) 09/30/17 06:10 Phosphorus 5.4 mg/dL (2.5-4.5) H 09/30/17 06:10 Magnesium 2.0 mg/dL (1.6-2.3) 09/30/17 06:10 Total Bilirubin 0.4 mg/dL (0.2-1.3) 09/30/17 06:10 AST 15 U/L (14-36) 09/30/17 06:10 ALT 32 U/L (9-52) 09/30/17 06:10 Alkaline Phosphatase 96 U/L (38-126) 09/30/17 06:10 Lactate Dehydrogenase 796 U/L (313-618) H 09/28/17 05:44 Total Creatine Kinase 103 U/L (30-135) 09/27/17 21:03 CK-MB (Mass) 1.84 ng/mL (0.0-3.38) 09/27/17 21:03 Troponin I 0.0740 ng/mL (0.00-0.120) 09/27/17 21:03 C-React Prot High Sens 13.12 mg/L (1.00-3.00) H 09/28/17 06:34 NT-Pro-B Natriuret Pep 1850 pg/mL (0-450) H 09/27/17 16:24 Total Protein 6.8 g/dL (6.3-8.3) 09/30/17 06:10 Albumin 3.4 g/dL (3.5-5.0) L 09/30/17 06:10 Globulin 3.3 gm/dL (2.2-3.9) 09/30/17 06:10 Albumin/Globulin Ratio 1.0 (1.0-2.1) 09/30/17 06:10 Angiotensin Convert Enz 11 U/L (9-67) 09/28/17 07:42 Homocysteine 8.5 umol/L (4.7-12.6) 09/28/17 06:34 Free T4 1.17 ng/dL (0.78-2.19) 09/29/17 12:53 TSH 3rd Generation 1.74 mIU/L (0.46-4.68) 09/30/17 06:10 Beta HCG, Quant < 2.39 mIU/ML 10/01/17 11:57 Urine Color Straw (YELLOW) 10/01/17 15:23 Urine Clarity Clear (Clear) 10/01/17 15:23 Urine pH 5.0 (5.0-8.0) 10/01/17 15:23 Ur Specific Bells 1.016 (1.003-1.030) 10/01/17 15:23 Urine Protein Negative mg/dL (NEGATIVE) 10/01/17 15:23 Urine Glucose (UA) 2+ mg/dL (Normal) H 10/01/17 15:23 Urine Ketones Negative mg/dL (NEGATIVE) 10/01/17 15:23 Urine Blood Negative (NEGATIVE) 10/01/17 15:23 Urine Nitrate Negative (NEGATIVE) 10/01/17 15:23 Urine Bilirubin Negative (NEGATIVE) 10/01/17 15:23 Urine Urobilinogen Normal mg/dL (0.2-1.0) 10/01/17 15:23 Ur Leukocyte Esterase Neg Buddy/uL (Negative) 10/01/17 15:23 Urine WBC (Auto) < 1 /hpf (0-5) 10/01/17 15:23 Urine RBC (Auto) < 1 /hpf (0-3) 10/01/17 15:23 Ur Squamous Epith Cells < 1 /hpf (0-5) 10/01/17 15:23 Ur 24 Hour Volume 1050 mL/24 h 09/30/17 13:18 Serum Immunofixation Not detected (Not Detected) 09/28/17 07:42 Urine Immunofixation Not detected (Not Detected) 09/28/17 07:28 RPR Nonreactive (NONREACTIVE) 09/28/17 07:42 Lyme IgG 18 kDa Band Nonreactive 09/28/17 07:42 Lyme IgG 23 kDa Band Nonreactive 09/28/17 07:42 Lyme IgG 28 kDa Band Nonreactive 09/28/17 07:42 Lyme IgG 30 kDa Band Nonreactive 09/28/17 07:42 Lyme IgG 39 kDa Band Nonreactive 09/28/17 07:42 Lyme IgG 41 kDa Band Nonreactive 09/28/17 07:42 Lyme IgG 45 kDa Band Nonreactive 09/28/17 07:42 Lyme IgG 58 kDa Band Nonreactive 09/28/17 07:42 Lyme IgG 66 kDa Band Reactive H 09/28/17 07:42 Lyme IgG 93 kDa Band Nonreactive 09/28/17 07:42 Lyme IgG W Blot Interp Negative (Negative) 09/28/17 07:42 Lyme IgM 23 kDa Band Nonreactive 09/28/17 07:42 Lyme IgM 39 kDa Band Nonreactive 09/28/17 07:42 Lyme IgM 41 kDa Band Nonreactive 09/28/17 07:42 Lyme IgM W Blot Interp Negative (Negative) 09/28/17 07:42 - Hospital Course Hospital Course: Chief complaint: Intermittent chest pain History of present illness: 47-year-old female with a known history of high blood pressure, also chronic lower back pain, status post spinal fusion, patient came to the emergency room with the symptoms of chest discomfort. The patient was having some appointment in my office tomorrow but the family was concerned about her condition. Patient was having ongoing pain for almost 3 weeks, the patient reported chest discomfort in the anterior chest area, nonradiating pain noted. Patient is extremely anxious. Complaining of headache. She was also having some nausea, but no vomiting. She denies any diarrhea. No urinary symptoms. She did not have any dizziness. Patient the past was noted to have high blood pressure, but the patient was not on any medications recently. She stopped taking medications almost a year now. Patient did not monitor to check her blood pressure recently. Patient was not able to sleep well. She was having some blurring vision occasionally. In today in the emergency room patient blood pressure was extremely elevated. Patient is having some restlessness, and uneasiness, but after taking Ativan, she is feeling slightly better. The blood pressure still on the high side Past medical history: Hypertension, multiple disc disease, spinal fusion. Anxiety Surgical history: Spinal fusion Allergies: No known drug allergies Family history: Significant history of hypertension, heart disease noted Review of system: Patient is currently having some headache pain Chest discomfort noted. Denies any nausea or vomiting. No abdominal symptoms. Denies any leg pain, but the patient is having on and off leg comes from the spinal fusion surgery Vital signs reviewed No neck vein distention noted Chest good air entry bilaterally, no wheezing or rales noted CVS regular heart sound, no murmur noted Abdomen soft, nontender. Extremities no pedal edema [place] [place] [employer] alert awake oriented -3, no functional neurological deficit Patient labs. Nonspecific. Renal functions is normal Elevated proBNP level noted Chest x-ray mild vascular congestion noted Assessment and recommendation: 47-year-old female now admitted with a severe uncontrolled hypertension, and associated with the elevated proBNP, underlying CHF possible. Patient will need possibly nitroglycerin drip, but the accompanying of increasing headache because of the nitroglycerin. I will start the patient on low-dose nicardipine drip. Lasix diuretics. Cardiology evaluation. Echocardiogram. Most likely patient has an acute hypertensive crisis at this time. We'll closely monitor, intensive care unit monitoring. Course in the Hospital: Patient initially admitted to the intensive care unit with the diagnosis of severe hypertensive emergency. Multiple intravenous bolus medication including apical level, nitroglycerin, enalapril no improvement. Patient started on a Cardene drip, slowly the blood pressure is showing some improvement. Patient started on oral antihypertensives including hydralazine, Coreg, amlodipine. Nephrology evaluation called in. Cardiology evaluation called in. Patient underwent echocardiogram, showing no evidence of any valvular disease, otherwise motion abnormality, but LVH noted. Cardiac enzymes are negative. Further evaluation did not reveal any hormonal imbalance. Low potassium level noted, and suggested possibility of hyperadrenalism, workup is pending. 24 hour urinalysis collected including metanephrines. Discussed with the internet sales manager. Patient possibly has a chronic uncontrolled hypertension, and associate with nonspecific secondary symptoms including chest pain and shortness of breath. Patient now clinical stable, even though the blood pressure slightly on the high side. Patient also has a history of severe anxiety, and also chronic lower back pain, multiple pain medications in the past. Final diagnosis: Severe hypertensive crisis, and associate with the end organ damage including chest pain. Adrenal gland tumor cannot be ruled out. Workup is pending at this time. Patient blood pressure is improving. Likely stable, she will be discharged home. She'll follow up as an outpatient. Patient will continue medication including: Aldactone 25 milligrams daily, hydralazine 50 milligrams 3 times a day, Coreg 25 milligrams every 12, amlodipine 10 milligrams every 12hrly, Flexeril, Percocet, and the Xanax. Will follow the patient. Discharge Exam - Head Exam Head Exam: ATRAUMATIC, NORMAL INSPECTION Discharge Plan - Discharge Medications Prescriptions: Spironolactone [Aldactone] 25 mg PO DAILY #30 tab hydrALAZINE [Apresoline] 50 mg PO Q8 #90 tab Carvedilol [Coreg] 25 mg PO Q12H #60 tab Gabapentin [Neurontin] 300 mg PO TID #90 cap amLODIPine [Norvasc] 10 mg PO Q12H #60 tab Alprazolam [Xanax] 0.5 mg PO TID PRN #90 tab PRN Reason: Anxiety - Follow Up Plan Condition: SERIOUS Disposition: HOME/ ROUTINE Instructions: DASH Diet, High Blood Pressure (DC), High Blood Pressure Emergencies
[2017-10-05 15:11] LABS: ALDO/PRA RATIO 0.2 Ratio (0.9-28.9)
[2017-10-05 15:48] LABS: TOTAL VOLUME 1050 mL
== END 2017-10-01 16:44 | disposition home or self-care (01) | DRG 305 ==
LOC: C.ER 15:08 → C.9E 18:22 → C.9I 20:45
PROVIDERS: ADMIT Internal Medicine; ATTEND Internal Medicine
DX: I16.1 Hypertensive emergency (principal); I50.9 Heart failure, unspecified; I11.0 Hypertensive heart disease with heart failure; M54.16 Radiculopathy, lumbar region; F17.200 Nicotine dependence, unspecified, uncomplicated; M96.1 Postlaminectomy syndrome, not elsewhere classified; N28.9 Disorder of kidney and ureter, unspecified; F17.210 Nicotine dependence, cigarettes, uncomplicated; Z79.899 Other long term (current) drug therapy; Z91.14 Patient's other noncompliance with medication regimen; Z98.1 Arthrodesis status

== ENCOUNTER 2017-10-31 10:46 | Inpatient (IN) | payer OTHER ==
[2017-10-31 10:46] VITALS: BMI 30.7
--- NOTE | 2017-10-31 11:51 | C.PDOC ---
History Of Present Illness Patient is a 47 y/o female with PMH HTN, anxiety, and chronic back pain with spinal fusion, who presents to the ED with a complaint of diarrhea, nausea, and vomiting since Sunday 10/29. Patient reports experiencing diarrhea and nausea on Wednesday, beginning vomiting on Wednesday. Today, she started getting diffuse body pains noting "everything hurts". (+) back pain (+) CONTEH . States she is compliant with HTN medications. Denies any fever. Pt was recently hospitalized for hypertensive emergency last month. Notes her BP has been fluctuating all week. Also notes she has not taking her Xanax and Percocet after running out a week ago. Time Seen by Provider: 10/31/17 11:26 Chief Complaint (Nursing): High Blood Pressure History Per: Patient History/Exam Limitations: no limitations Onset/Duration Of Symptoms: Days (since Sunday 10/29) Current Symptoms Are (Timing): Still Present Recent travel outside of the [place]: No Past Medical History Reviewed: Historical Data, Nursing Documentation, Vital Signs Vital Signs: Last Vital Signs Temp 98.5 F 11/01/17 20:00 Pulse 89 11/01/17 20:00 Resp 18 11/01/17 20:00 BP 181/102 H 11/01/17 21:21 Pulse Ox 98 11/01/17 20:00 - Medical History PMH: Anxiety, Back Problems, HTN (noncompliant with meds) Denies: Chronic Kidney Disease Surgical History: Back Surgery Denies: Pacemaker Family History: States: No Known Family Hx - Social History Hx Tobacco Use: Yes Hx Alcohol Use: No Hx Substance Use: No - Immunization History Hx Tetanus Toxoid Vaccination: No Hx Influenza Vaccination: No Hx Pneumococcal Vaccination: No Review Of Systems Constitutional: Positive for: Malaise. Negative for: Fever Gastrointestinal: Positive for: Nausea, Vomiting, Diarrhea Musculoskeletal: Positive for: Back Pain (chronic) Neurological: Positive for: Headache Physical Exam - Physical Exam Appears: Non-toxic, In Acute Distress, Other (uncomfortable; tearful) Skin: Normal Color, Warm, Dry Head: Atraumatic, Normacephalic Eye(s): bilateral: Normal Inspection, PERRL, EOMI Nose: Normal Oral Mucosa: Moist Neck: Normal ROM, Supple Chest: Symmetrical Cardiovascular: Rhythm Regular Respiratory: Normal Breath Sounds, No Rales, No Rhonchi, No Wheezing, Other ( speaking in full sentences) Gastrointestinal/Abdominal: Soft, Tenderness (diffusely) Back: Other (diffuse lumbar pain on palpation) Extremity: Normal ROM Neurological/Psych: Oriented x3, Normal Speech, Normal Cognition, Normal Cranial Nerves, Other (no focal deficits) ED Course And Treatment - Laboratory Results Result Diagrams: 10/31/17 12:41 11/01/17 05:56 ECG: Interpreted By Me, Viewed By Me ECG Rhythm: Sinus Rhythm ECG Interpretation: No Acute Changes Rate From EC (bpm) O2 Sat by Pulse Oximetry: 100 (on RA) Pulse Ox Interpretation: Normal - CT Scan/US Head Other Rad Studies (CT/US): Interpreted By Me, Read By Radiologist CT/US Interpretation: PROCEDURE: CT HEAD WITHOUT CONTRAST. HISTORY: headache , vomiting, htn em. COMPARISON: Comparison is made to the previous study dated 09/27/2017. TECHNIQUE: Axial computed tomography images were obtained through the head/brain without intravenous contrast. Radiation dose: Total exam DLP = 846.84 mGy-cm. This CT exam was performed using one or more of the following dose reduction techniques: Automated exposure control, adjustment of the mA and/or kV according to patient size, and/or use of iterative reconstruction technique. FINDINGS: HEMORRHAGE: No intracranial hemorrhage. BRAIN: No mass effect or edema. No atrophy or chronic microvascular ischemic changes. VENTRICLES: Unremarkable. No hydrocephalus. CALVARIUM: Unremarkable. PARANASAL SINUSES: Unremarkable as visualized. No significant inflammatory changes. MASTOID AIR CELLS: Unremarkable as visualized. No inflammatory changes. OTHER FINDINGS: None. IMPRESSION: No evidence of acute intracranial hemorrhage intracranial collection mass effect or midline shift. Progress Note: Head CT, HCG urine, and UA ordered. Blood work, norvasc, toradol , trandate, and zofran administered. On re-eval, patient is accepted for admission by dr Marti. CAse discussed with Dr Alvarenga, agreed upon plan and treatment. Disposition - Disposition Disposition: HOSPITALIZED Disposition Time: 18:00 Condition: STABLE - Clinical Impression Clinical Impression: Hypertensive emergency - Scribe Statement The provider has reviewed the documentation as recorded by the Scribe Viviana Larkin All medical record entries made by the Scribe were at my direction and personally dictated by me. I have reviewed the chart and agree that the record accurately reflects my personal performance of the history, physical exam, medical decision making, and the department course for this patient. I have also personally directed, reviewed, and agree with the discharge instructions and disposition.
[2017-10-31] MEDS ORDERED: Labetalol 5 mg/ml Inj 20ML IV STA (11:57)
[2017-10-31] MEDS ORDERED: Labetalol 25mg/5ml Syringe ONE (12:28)
[2017-10-31 12:55] LABS: BASO # 0.1 K/uL (0.0-0.2); BASO % 0.5 % (0.0-2.0); EOS # 0.1 K/uL (0.0-0.7); EOS % 0.4 % (0.0-4.0); HEMOGLOBIN 15.3 g/dL (11.0-16.0); LYMPH # 2.3 K/uL (1.0-4.3); MEAN CELL VOLUME 81.6 fL (81.0-99.0); MEAN CORPUSCULAR HEMOGLOBIN 27.2 pg (27.0-31.0); MEAN CORPUSCULAR HGB CONC 33.3 g/dL (33.0-37.0); MEAN PLATELET VOLUME 7.8 fL (7.2-11.7); MONO # 0.5 K/uL (0.0-0.8); MONO % 3.6 % (0.0-10.0); NEUT # 12.1 K/uL (1.8-7.0); NEUT % 80.5 % (50.0-75.0); RBC 5.61 Mil/uL (3.80-5.20); RED CELL DISTRIBUTION WIDTH 18.1 % (11.5-14.5)
[2017-10-31 12:57] LABS: HCG,QUALITATIVE URINE NEGATIVE (NEGATIVE)
[2017-10-31 13:14] LABS: SQUAMOUS EPITHIAL 1 /hpf (0-5); URINE BACTERIA RARE (<OCC); URINE BILIRUBIN NEGATIVE (NEGATIVE); URINE BLOOD 1+ (NEGATIVE); URINE CLARITY Clear (Clear); URINE COLOR Yellow (YELLOW); URINE GLUCOSE (UA) 1+ mg/dL (Normal); URINE LEUKOCYTE ESTERASE NEG Leu/uL (Negative); URINE PROTEIN 2+ mg/dL (NEGATIVE); URINE UROBILINOGEN NORMAL mg/dL (0.2-1.0)
[2017-10-31 13:20] LABS: ALBUMIN 4.5 g/dL (3.5-5.0); ALT/SGPT 14 U/L (9-52); AST/SGOT 33 U/L (14-36); BLOOD UREA NITROGEN 18 mg/dL (7-17); CALCIUM 10.1 mg/dl (8.6-10.4); GFR AFRICAN-AMERICAN > 60; GFR NON-AFRICAN AMERICAN > 60; LIPASE 95 U/L (23-300)
[2017-10-31 13:32] LABS: B-TYPE NATRIURETIC PEPTIDE 1310 pg/mL (0-450); CK-MB 2.12 ng/mL (0.0-3.38)
[2017-10-31] MEDS ORDERED: Morphine 4 MG/ML VIAL ONE (13:39)
--- NOTE | 2017-10-31 14:00 | CT ---
PROCEDURE: CT HEAD WITHOUT CONTRAST. HISTORY: headache, vomiting, htn em COMPARISON: Comparison is made to the previous study dated 09/27/2017 TECHNIQUE: Axial computed tomography images were obtained through the head/brain without intravenous contrast. Radiation dose: Total exam DLP = 846.84 mGy-cm. This CT exam was performed using one or more of the following dose reduction techniques: Automated exposure control, adjustment of the mA and/or kV according to patient size, and/or use of iterative reconstruction technique. FINDINGS: HEMORRHAGE: No intracranial hemorrhage. BRAIN: No mass effect or edema. No atrophy or chronic microvascular ischemic changes. VENTRICLES: Unremarkable. No hydrocephalus. CALVARIUM: Unremarkable. PARANASAL SINUSES: Unremarkable as visualized. No significant inflammatory changes. MASTOID AIR CELLS: Unremarkable as visualized. No inflammatory changes. OTHER FINDINGS: None. IMPRESSION: No evidence of acute intracranial hemorrhage intracranial collection mass effect or midline shift.
[2017-10-31] MEDS ORDERED: Oxycodone/Acetaminophen 5/325 mg Tab PO PRN (15:40)
[2017-10-31] MEDS: niCARdipine IV 25 MG in Sodium Chloride 0.9% 240 ML IV SCH (17:15)
--- NOTE | 2017-10-31 17:42 | CP.PCM.HP ---
History of Present Illness - History of Present Illness History of Present Illness: Chief complaint: Nausea vomiting History of present illness: 47-year-old female with a known history of high blood pressure, also chronic lower back pain, status post spinal fusion, patient came to the emergency room with the symptoms of Neck pain, discomfort,nausea, vomiting and elevated blood pressure Patient was recently hospitalized with the uncontrolled hypertension. Patient was doing well at home, but for one week she started noticing gradually increasing blood pressure. But 3 days ago she got moreanxious, pressure started going up, in spite of the medication no improvement, patient started concerned about blood pressure, and started having increasing headache. She started also increasing nausea, and episodes of vomiting, since yesterday, and her pressure starte climbing up. Today her blood pressure was 200/140, and also increasing symptoms noted, she called me and I advised her to come to the emergency room. In the ER in spite of the treatment her pressure did not improve, started on intravenous medication, admitted to the. Intensive care unit Past medical history: Hypertension, multiple disc disease, spinal fusion. Anxiety Surgical history: Spinal fusion Allergies: No known drug allergies Family history: Significant history of hypertension, heart disease noted Review of system: Patient is currently having some headache pain Chest discomfort noted. Denies any nausea or vomiting. No abdominal symptoms. Denies any leg pain, but the patient is having on and off leg comes from the spinal fusion surgery Vital signs reviewed No neck vein distention noted Chest good air entry bilaterally, no wheezing or rales noted CVS regular heart sound, no murmur noted Abdomen soft, nontender. Extremities no pedal edema [employer] alert awake oriented -3, no functional neurological deficit Patient labs. Nonspecific. Renal functions is normal Elevated proBNP level noted Chest x-ray mild vascular congestion noted Assessment and recommendation: 47-year-old female now admitted with a severe uncontrolled hypertension, and associated with the elevated proBNP, underlying CHF possible. We'll start the patient on Cardine drip Ativan, morphine. Patient had a CT scan of the head negative Underlying adrenal mass cannot be ruled out Will get metanephrines. Renal evaluation Blood pressure control Pain control And will follow-up the patient MRI of the brain in the morning Present on Admission - Present on Admission Any Indicators Present on Admission: No History of DVT/PE: No History of Uncontrolled Diabetes: No Urinary Catheter: No Decubitus Ulcer Present: No Past Patient History - Infectious Disease Hx of Infectious Diseases: None - Past Medical History & Family History Past Medical History?: Yes - Past Social History Smoking Status: Heavy Smoker > 10 Cigarettes Daily - CARDIAC Hx Hypertension: Yes (noncompliant with meds) Hx Pacemaker: No - PULMONARY Hx Respiratory Disorders: No - NEUROLOGICAL Hx Paralysis: No - HEENT Hx HEENT Problems: No - RENAL Hx Chronic Kidney Disease: No - ENDOCRINE/METABOLIC Hx Endocrine Disorders: No - HEMATOLOGICAL/ONCOLOGICAL Hx Blood Transfusions: No - INTEGUMENTARY Hx Dermatological Problems: No - MUSCULOSKELETAL/RHEUMATOLOGICAL Hx Musculoskeletal Disorders: Yes - GASTROINTESTINAL Hx Gastrointestinal Disorders: No - GENITOURINARY/GYNECOLOGICAL Hx Genitourinary Disorders: No - PSYCHIATRIC Hx Anxiety: Yes Hx Substance Use: No - SURGICAL HISTORY Hx Surgeries: Yes - ANESTHESIA Hx Anesthesia: Yes Hx Anesthesia Reactions: No Hx Malignant Hyperthermia: No Meds Allergies/Adverse Reactions: Allergies Allergy/AdvReac Type Severity Reaction Status Date / Time No Known Allergies Allergy Verified 10/31/17 11:01 Results - Vital Signs Recent Vital Signs: Last Vital Signs Temp 97.8 F 10/31/17 15:15 Pulse 63 10/31/17 15:15 Resp 18 10/31/17 15:15 BP 217/124 H 10/31/17 16:17 Pulse Ox 100 10/31/17 17:36 - Labs Result Diagrams: 10/31/17 12:41 10/31/17 12:41 Labs: Laboratory Results - last 24 hr 10/31/17 10/31/17 10/31/17 12:41 12:41 12:41 WBC 15.0 H RBC 5.61 H Hgb 15.3 D Hct 45.8 MCV 81.6 MCH 27.2 MCHC 33.3 RDW 18.1 H Plt Count 397 MPV 7.8 Neut % (Auto) 80.5 H Lymph % (Auto) 15.0 L [place] % (Auto) 3.6 Eos % (Auto) 0.4 Baso % (Auto) 0.5 Neut # (Auto) 12.1 H Lymph # (Auto) 2.3 [place] # (Auto) 0.5 Eos # (Auto) 0.1 Baso # (Auto) 0.1 Sodium 141 Potassium 3.6 Chloride 103 Carbon Dioxide 21 L Anion Gap 20 BUN 18 H Creatinine 0.9 Est GFR ( Amer) > 60 Est GFR (Non-Af Amer) > 60 Random Glucose 175 H Calcium 10.1 Total Bilirubin 0.9 AST 33 ALT 14 Alkaline Phosphatase 96 Total Creatine Kinase 147 H CK-MB (Mass) 2.12 NT-Pro-B Natriuret Pep 1310 H Total Protein 9.2 H Albumin 4.5 Globulin 4.6 H Albumin/Globulin Ratio 1.0 Lipase 95 Urine Color Yellow Urine Clarity Clear Urine pH 5.0 Ur Specific [place] 1.020 Urine Protein 2+ H Urine Glucose (UA) 1+ Urine Ketones Negative Urine Blood 1+ H Urine Nitrate Negative Urine Bilirubin Negative Urine Urobilinogen Normal Ur Leukocyte Esterase Neg Urine WBC (Auto) 1 Urine RBC (Auto) 8 H Ur Squamous Epith Cells 1 Urine Bacteria Rare Urine HCG, Qual Negative
[2017-10-31 19:22] LABS: ALB/GLOB RATIO 1.1 (1.0-2.1); ALBUMIN 4.2 g/dL (3.5-5.0); ALT/SGPT 14 U/L (9-52); AST/SGOT 30 U/L (14-36); BLOOD UREA NITROGEN 19 mg/dL (7-17); GFR AFRICAN-AMERICAN > 60; GFR NON-AFRICAN AMERICAN > 60
[2017-10-31] MEDS: Morphine 4 MG/ML VIAL IVP PRN (19:40)
[2017-10-31] MEDS: Magnesium Sulfate 1 gm in D5W 1 GM/100 ML BAG IVPB SCH ×2 (20:44→21:37)
[2017-11-01] MEDS: niCARdipine IV 25 MG in Sodium Chloride 0.9% 240 ML IV SCH ×2 (02:34→14:00)
[2017-11-01] MEDS: Morphine 4 MG/ML VIAL IVP PRN ×3 (05:31→18:39)
[2017-11-01 06:56] LABS: ALBUMIN 4.4 g/dL (3.5-5.0); ALT/SGPT 9 U/L (9-52); AST/SGOT 29 U/L (14-36); BLOOD UREA NITROGEN 21 mg/dL (7-17); CALCIUM 9.6 mg/dl (8.6-10.4); GFR AFRICAN-AMERICAN > 60; GFR NON-AFRICAN AMERICAN > 60
--- NOTE | 2017-11-01 12:31 | CP.PCM.CON ---
History of Present Illness - History of Present Illness History of Present Illness: 47-year-old female with a known history of high blood pressure, also chronic lower back pain- DDD, status post spinal fusion, patient came to the emergency room with the symptoms of Neck pain, discomfort,nausea, vomiting and elevated blood pressure- around 200/140 Patient was recently hospitalized with the uncontrolled hypertension. Patient was doing well at home, but for one week she started noticing gradually increasing blood pressure. Last office BP was 135/85 on hydralazine, carvedilol, lasix, aldactone But 3 days ago she got more anxious, pressure started going up, in spite of the medication no improvement, patient started concerned about blood pressure, and started having increasing headache. She started also increasing nausea, and episodes of vomiting, and her pressure climbed On presentation her blood pressure was 200/140, and also increasing symptoms n and advised her to come to go to the emergency room. In the ER in spite of the treatment her pressure did not improve, started on intravenous medication, admitted to the. Intensive care unit Previous renal artery dopplers negative Past medical history: Hypertension, multiple disc disease, spinal fusion. Anxiety Surgical history: Spinal fusion Allergies: No known drug allergies Family history: Significant history of hypertension, heart disease noted Review of system: Patient is currently having some headache pain Chest discomfort noted. Denies any nausea or vomiting. No abdominal symptoms. Denies any leg pain, but the patient is having on and off leg comes from the spinal fusion surgery Review of Systems - Constitutional Constitutional: Fatigue, Weakness - EENT Eyes: Blurred Vision Ears: absent: As Per HPI, Decreased Hearing, Ear Discharge, Ear Pain, Tinnitus, Abnormal Hearing, Disequilibrium, Dizziness, Other Nose/Mouth/Throat: absent: As Per HPI, Epistaxis, Nasal Congestion, Nasal Discharge, Nasal Obstruction, Nasal Trauma, Nose Pain, Post Nasal Drip, Sinus Pain, Sinus Pressure, Bleeding Gums, Change in Voice, Dental Pain, Dry Mouth, Dysphagia, Halitosis, Hoarsness, Lip Swelling, Mouth Lesions, Mouth Pain, Odynophagia, Sore Throat, Throat Swelling, Tongue Swelling, Facial Pain, Neck Pain, Neck Mass, Other - Cardiovascular Cardiovascular: Chest Pain, Lightheadedness - Respiratory Respiratory: Dyspnea on Exertion - Gastrointestinal Gastrointestinal: Nausea, Vomiting - Genitourinary Genitourinary: absent: As Per HPI, Change in Urinary Stream, Difficulty Urinating, Dysuria, Flank Pain, Hematuria, Pyuria, Nocturia, Urinary Incontinence, Urinary Frequency, Urinary Hesitance, Urinary Urgency, Voiding Freq/Small Amts, Freq UTI, Hx Renal/Bladder Calculi, Hx /Renal Surgery, Bladder Distension, Other - Musculoskeletal Musculoskeletal: Muscle Cramps, Muscle Weakness, Myalgias - Neurological Neurological: Dizziness, Weakness - Psychiatric Psychiatric: Anxiety Past Patient History - Infectious Disease Hx of Infectious Diseases: None - Past Medical History & Family History Past Medical History?: Yes - Past Social History Smoking Status: Heavy Smoker > 10 Cigarettes Daily Chewing Tobacco Use: No Cigar Use: No Alcohol: Occasional Drugs: Denies - CARDIAC Hx Hypertension: Yes (noncompliant with meds) Hx Pacemaker: No - PULMONARY Hx Respiratory Disorders: No - NEUROLOGICAL Hx Paralysis: No - HEENT Hx HEENT Problems: No - RENAL Hx Chronic Kidney Disease: No - ENDOCRINE/METABOLIC Hx Endocrine Disorders: No - HEMATOLOGICAL/ONCOLOGICAL Hx Blood Transfusions: No - INTEGUMENTARY Hx Dermatological Problems: No - MUSCULOSKELETAL/RHEUMATOLOGICAL Hx Musculoskeletal Disorders: Yes - GASTROINTESTINAL Hx Gastrointestinal Disorders: No - GENITOURINARY/GYNECOLOGICAL Hx Genitourinary Disorders: No - PSYCHIATRIC Hx Anxiety: Yes Hx Substance Use: No - SURGICAL HISTORY Hx Surgeries: Yes - ANESTHESIA Hx Anesthesia: Yes Hx Anesthesia Reactions: No Hx Malignant Hyperthermia: No Meds Allergies/Adverse Reactions: Allergies Allergy/AdvReac Type Severity Reaction Status Date / Time No Known Allergies Allergy Verified 10/31/17 11:01 - Medications Medications: Current Medications Alprazolam (Xanax) 0.5 mg PO TID PRN PRN Reason: Anxiety Last Admin: 10/31/17 19:42 Dose: 0.5 mg Amlodipine Besylate (Norvasc) 10 mg PO Q12 [facility] Carvedilol (Coreg) 25 mg PO Q12 [facility] Last Admin: 11/01/17 10:03 Dose: 25 mg Cyclobenzaprine HCl (Flexeril) 5 mg PO [facility] Last Admin: 10/31/17 21:36 Dose: 5 mg Docusate Sodium (Colace) 100 mg PO TID [facility] Last Admin: 11/01/17 10:04 Dose: 100 mg Gabapentin (Neurontin) 300 mg PO TID [facility] Last Admin: 11/01/17 10:04 Dose: 300 mg Hydralazine HCl (Apresoline) 50 mg PO Q8 [facility] Last Admin: 11/01/17 05:31 Dose: 50 mg Nicardipine HCl 25 mg/ Sodium (Chloride) 250 mls @ 25 mls/hr IV .Q10H ALICE; 2.5 MG/HR PRN Reason: Protocol Last Admin: 11/01/17 02:34 Dose: 2.5 mg/hr, 25 mls/hr Lorazepam (Ativan) 0.5 mg IVP Q8 [facility] Last Admin: 11/01/17 05:36 Dose: 0.5 mg Morphine Sulfate (Morphine) 2 mg IVP Q4 PRN PRN Reason: Pain, severe (8-10) Last Admin: 11/01/17 11:22 Dose: 2 mg Ondansetron HCl (Zofran Inj) 4 mg IVP Q8 PRN PRN Reason: nause Oxycodone HCl (Oxycontin Extended Release Tab) 20 mg PO BID PRN PRN Reason: Pain, severe (8-10) Oxycodone/Acetaminophen (Percocet 5/325 Mg Tab) 1 tab PO BID PRN PRN Reason: Pain, moderate (4-7) Stop: 11/03/17 15:41 Last Admin: 10/31/17 21:38 Dose: 1 tab Pantoprazole Sodium (Protonix Inj) 40 mg IVP DAILY [facility] Last Admin: 11/01/17 11:22 Dose: 40 mg Spironolactone (Aldactone) 25 mg PO DAILY [facility] Last Admin: 11/01/17 10:03 Dose: 25 mg Physical Exam - Constitutional Appears: No Acute Distress, Chronically Ill - Head Exam Head Exam: ATRAUMATIC, NORMAL INSPECTION - Eye Exam Eye Exam: EOMI, Normal appearance - Neck Exam Neck exam: Positive for: Normal Inspection. Negative for: Tenderness - Respiratory Exam Respiratory Exam: Clear to Auscultation Bilateral, NORMAL BREATHING PATTERN - Cardiovascular Exam Cardiovascular Exam: REGULAR RHYTHM, +S1 - GI/Abdominal Exam GI & Abdominal Exam: Soft. absent: Tenderness - Extremities Exam Extremities exam: Positive for: normal inspection. Negative for: tenderness - Neurological Exam Neurological exam: Alert, CN II-XII Intact - Skin Skin Exam: Dry, Warm Results - Vital Signs Recent Vital Signs: Last Vital Signs Temp 98.2 F 11/01/17 08:00 Pulse 89 04/16/18 11:00 Resp 21 11/01/17 11:00 BP 156/92 H 11/01/17 11:00 Pulse Ox 98 11/01/17 11:00 - Labs Result Diagrams: 10/31/17 12:41 11/01/17 05:56 Labs: Laboratory Results - last 24 hr 10/31/17 10/31/17 10/31/17 12:41 12:41 12:41 WBC 15.0 H RBC 5.61 H Hgb 15.3 D Hct 45.8 MCV 81.6 MCH 27.2 MCHC 33.3 RDW 18.1 H Plt Count 397 MPV 7.8 Neut % (Auto) 80.5 H Lymph % (Auto) 15.0 L [place] % (Auto) 3.6 Eos % (Auto) 0.4 Baso % (Auto) 0.5 Neut # (Auto) 12.1 H Lymph # (Auto) 2.3 [place] # (Auto) 0.5 Eos # (Auto) 0.1 Baso # (Auto) 0.1 Sodium 141 Potassium 3.6 Chloride 103 Carbon Dioxide 21 L Anion Gap 20 BUN 18 H Creatinine 0.9 Est GFR ( Amer) > 60 Est GFR (Non-Af Amer) > 60 Random Glucose 175 H Calcium 10.1 Phosphorus Magnesium Total Bilirubin 0.9 AST 33 ALT 14 Alkaline Phosphatase 96 Total Creatine Kinase 147 H CK-MB (Mass) 2.12 NT-Pro-B Natriuret Pep 1310 H Total Protein 9.2 H Albumin 4.5 Globulin 4.6 H Albumin/Globulin Ratio 1.0 Lipase 95 TSH 3rd Generation Cortisol AM Sample Urine Color Yellow Urine Clarity Clear Urine pH 5.0 Ur Specific [place] 1.020 Urine Protein 2+ H Urine Glucose (UA) 1+ Urine Ketones Negative Urine Blood 1+ H Urine Nitrate Negative Urine Bilirubin Negative Urine Urobilinogen Normal Ur Leukocyte Esterase Neg Urine WBC (Auto) 1 Urine RBC (Auto) 8 H Ur Squamous Epith Cells 1 Urine Bacteria Rare Urine HCG, Qual Negative 10/31/17 11/01/17 11/01/17 19:05 05:56 05:56 WBC RBC Hgb Hct MCV MCH MCHC RDW Plt Count MPV Neut % (Auto) Lymph % (Auto) [place] % (Auto) Eos % (Auto) Baso % (Auto) Neut # (Auto) Lymph # (Auto) [place] # (Auto) Eos # (Auto) Baso # (Auto) Sodium 139 135 Potassium 3.5 L 4.0 Chloride 103 99 Carbon Dioxide 21 L 22 Anion Gap 18 18 BUN 19 H 21 H Creatinine 0.7 0.8 Est GFR ( Amer) > 60 > 60 Est GFR (Non-Af Amer) > 60 > 60 Random Glucose 175 H 159 H Calcium 9.0 9.6 Phosphorus 4.0 3.6 Magnesium 1.5 L 2.6 H Total Bilirubin 0.8 1.1 AST 30 29 ALT 14 9 D Alkaline Phosphatase 87 88 Total Creatine Kinase CK-MB (Mass) NT-Pro-B Natriuret Pep Total Protein 7.9 8.7 H Albumin 4.2 4.4 Globulin 3.7 4.3 H Albumin/Globulin Ratio 1.1 1.0 Lipase TSH 3rd Generation 0.79 Cortisol AM Sample 20.0 Urine Color Urine Clarity Urine pH Ur Specific [place] Urine Protein Urine Glucose (UA) Urine Ketones Urine Blood Urine Nitrate Urine Bilirubin Urine Urobilinogen Ur Leukocyte Esterase Urine WBC (Auto) Urine RBC (Auto) Ur Squamous Epith Cells Urine Bacteria Urine HCG, Qual Assessment & Plan (1) Proteinuria Status: Acute (2) Atypical chest pain Status: Acute (3) Hypertensive emergency Status: Acute - Assessment and Plan (Free Text) Plan: Resume carvedilol/ amlodipine re-add losartanHCT quantify protein excretion pheo evaluation
--- NOTE | 2017-11-01 16:47 | CP.CCUPN ---
CCU Subjective - Physician Review Subjective (Free Text): 11/01/17 16:39 Patient seen and examined. Patient reports feeling better this morning. Chest pain and dyspnea have resolved. Patient still has a very mild headache. CCU Objective - Vital Signs / Intake & Output Vital Signs (Last 4 hours): Vital Signs Pulse Resp BP Pulse Ox 11/01/17 15:48 95 H 18 11/01/17 15:00 82 19 185/117 H 98 11/01/17 14:00 80 20 170/100 H 97 11/01/17 13:50 76 20 172/103 H 11/01/17 13:48 81 16 180/104 H 11/01/17 13:00 80 21 127/72 99 11/01/17 12:48 87 17 127/72 Intake and Output (Last 8hrs): Intake & Output 11/01/17 11/01/17 11/01/17 06:59 14:59 22:59 Intake Total 900 407.5 25 Output Total 700 Balance 200 407.5 25 Weight 184 lb 8 oz Intake: IV 250 Intake, IV Amount 500 287.5 25 Left Antecubital 200 187.5 25 Left Forearm 300 100 Oral 150 120 Output: Urine 700 Urine, Voided 700 Other: # Bowel Movements 0 - Physical Exam Head: Positive for: Atraumatic, Normocephalic Pupils: Positive for: PERRL Extroacular Muscles: Positive for: EOMI Conjunctiva: Positive for: Normal Mouth: Positive for: Moist Mucous Membranes Respiratory/Chest: Positive for: Clear to Auscultation. Negative for: Wheezes, Rales, Rhonchi Cardiovascular: Positive for: Regular Rate and Rhythm, Normal S1, S2 Abdomen: Positive for: Normal Bowel Sounds. Negative for: Tenderness, Distention Upper Extremity: Positive for: Normal Inspection Lower Extremity: Positive for: Normal Inspection Neurological: Positive for: GCS=15 Skin: Positive for: Warm, Dry Psychiatric: Positive for: Alert, Oriented x 3 - Medications Active Medications: Active Medications Generic Name Dose Route Start Last Admin Trade Name Freq PRN Reason Stop Dose Admin Alprazolam 0.5 mg 10/31/17 15:40 10/31/17 19:42 Xanax PO 0.5 mg TID PRN Administration Anxiety Amlodipine Besylate 10 mg 10/31/17 22:00 Norvasc PO Q12 ALICE Carvedilol 25 mg 10/31/17 15:45 11/01/17 10:03 Coreg PO 25 mg Q12 ALICE Administration Cyclobenzaprine HCl 5 mg 10/31/17 22:00 10/31/17 21:36 Flexeril PO 5 mg HS ALICE Administration Docusate Sodium 100 mg 10/31/17 18:00 11/01/17 14:08 Colace PO 100 mg TID ALICE Administration Gabapentin 300 mg 10/31/17 18:00 11/01/17 14:08 Neurontin PO 300 mg TID ALICE Administration Hydralazine HCl 50 mg 10/31/17 22:00 11/01/17 14:08 Apresoline PO 50 mg Q8 ALICE Administration Nicardipine HCl 25 mg/ Sodium 250 mls @ 25 mls/hr 10/31/17 17:00 11/01/17 02: 34 Chloride IV 2.5 mg/hr .Q10H ALICE 25 mls/hr Protocol Administration 2.5 MG/HR Lorazepam 0.5 mg 10/31/17 17:15 11/01/17 14:08 Ativan IVP 0.5 mg Q8 ALICE Administration Morphine Sulfate 2 mg 10/31/17 17:05 11/01/17 11:22 Morphine IVP 2 mg Q4 PRN Administration Pain, severe (8-10) Ondansetron HCl 4 mg 10/31/17 17:05 Zofran Inj IVP Q8 PRN nause Oxycodone HCl 20 mg 10/31/17 15:40 Oxycontin Extended Release Tab PO BID PRN Pain, severe (8-10) Oxycodone/Acetaminophen 1 tab 10/31/17 15:40 10/31/17 21:38 Percocet 5/325 Mg Tab PO 11/03/17 15:41 1 tab BID PRN Administration Pain, moderate (4-7) Pantoprazole Sodium 40 mg 11/01/17 10:00 11/01/17 11:22 Protonix Inj IVP 40 mg DAILY ALICE Administration Spironolactone 25 mg 11/01/17 10:00 11/01/17 10:03 Aldactone PO 25 mg DAILY ALICE Administration - Patient Studies Lab Studies: Lab Studies 11/01/17 11/01/17 10/31/17 Range/Units 05:56 05:56 19:05 Sodium 135 139 (132-148) mmol/L Potassium 4.0 3.5 L (3.6-5.2) mmol/L Chloride 99 103 (98-107) mmol/L Carbon Dioxide 22 21 L (22-30) mmol/L Anion Gap 18 18 (10-20) BUN 21 H 19 H (7-17) mg/dL Creatinine 0.8 0.7 (0.7-1.2) mg/dL Est GFR ( Amer) > 60 > 60 Est GFR (Non-Af Amer) > 60 > 60 Random Glucose 159 H 175 H (65-105) mg/dL Calcium 9.6 9.0 (8.6-10.4) mg/dl Phosphorus 3.6 4.0 (2.5-4.5) mg/dL Magnesium 2.6 H 1.5 L (1.6-2.3) mg/dL Total Bilirubin 1.1 0.8 (0.2-1.3) mg/dL AST 29 30 (14-36) U/L ALT 9 D 14 (9-52) U/L Alkaline Phosphatase 88 87 (38-126) U/L Total Protein 8.7 H 7.9 (6.3-8.3) g/dL Albumin 4.4 4.2 (3.5-5.0) g/dL Globulin 4.3 H 3.7 (2.2-3.9) gm/dL Albumin/Globulin Ratio 1.0 1.1 (1.0-2.1) TSH 3rd Generation 0.79 (0.46-4.68) mIU/L Cortisol AM Sample 20.0 (4.46-22.7) ug/dL Laboratory Results - last 24 hr 10/31/17 11/01/17 11/01/17 19:05 05:56 05:56 Sodium 139 135 Potassium 3.5 L 4.0 Chloride 103 99 Carbon Dioxide 21 L 22 Anion Gap 18 18 BUN 19 H 21 H Creatinine 0.7 0.8 Est GFR ( Amer) > 60 > 60 Est GFR (Non-Af Amer) > 60 > 60 Random Glucose 175 H 159 H Calcium 9.0 9.6 Phosphorus 4.0 3.6 Magnesium 1.5 L 2.6 H Total Bilirubin 0.8 1.1 AST 30 29 ALT 14 9 D Alkaline Phosphatase 87 88 Total Protein 7.9 8.7 H Albumin 4.2 4.4 Globulin 3.7 4.3 H Albumin/Globulin Ratio 1.1 1.0 TSH 3rd Generation 0.79 Cortisol AM Sample 20.0 Critical Care Progress Note - Nutrition Nutrition: Nutrition Category Date Time Status Heart Healthy Diet [DIET] Diets 11/01/17 Breakfast Active Assessment/Plan - Assessment and Plan (Free Text) Assessment: This is a 47 year old female with PMHx uncontrolled hypertension here for hypertensive emergency. Neuro Awake, Verbal Cardio Coreg 25 mg {P Q12 Hydralazine 50 mg PO Q8 Spironolactone 25 mg PO daily Once patient has taken all PO medications, she may be taken off the Cardine drip Pulm saturating well GI Heart Healthy Diet Protonix 40 mg IV daily Prophylaxis SCDs Protonix 40 mg IV daily Discussed with Dr. Marti
[2017-11-02] MEDS: niCARdipine IV 25 MG in Sodium Chloride 0.9% 240 ML IV SCH ×2 (00:44→10:11)
--- NOTE | 2017-11-02 02:10 | CARD ---
APPROVED REPORT EKG Measurement Heart [id number] HI [id number] <Conclusion> Normal sinus rhythm Left axis deviation Voltage criteria for left ventricular hypertrophy Abnormal ECG
[2017-11-02] MEDS: Morphine 4 MG/ML VIAL IVP PRN (03:37)
[2017-11-02 06:51] LABS: ALB/GLOB RATIO 1.1 (1.0-2.1); ALBUMIN 4.1 g/dL (3.5-5.0); ALT/SGPT 14 U/L (9-52); AST/SGOT 27 U/L (14-36); BLOOD UREA NITROGEN 21 mg/dL (7-17); CALCIUM 9.3 mg/dl (8.6-10.4); GFR AFRICAN-AMERICAN > 60; GFR NON-AFRICAN AMERICAN > 60
[2017-11-02 08:57] LABS: BASO # 0.1 K/uL (0.0-0.2); BASO % 1.2 % (0.0-2.0); EOS # 0.1 K/uL (0.0-0.7); EOS % 1.1 % (0.0-4.0); LYMPH # 2.2 K/uL (1.0-4.3); MEAN CELL VOLUME 82.4 fL (81.0-99.0); MEAN CORPUSCULAR HEMOGLOBIN 27.3 pg (27.0-31.0); MEAN CORPUSCULAR HGB CONC 33.1 g/dL (33.0-37.0); MEAN PLATELET VOLUME 7.2 fL (7.2-11.7); MONO # 0.5 K/uL (0.0-0.8); MONO % 5.3 % (0.0-10.0); NEUT # 6.7 K/uL (1.8-7.0); NEUT % 69.4 % (50.0-75.0); NRBC % 0.1 % (0.0-2.0); RBC 5.49 Mil/uL (3.80-5.20); RED CELL DISTRIBUTION WIDTH 17.6 % (11.5-14.5); WHITE BLOOD COUNT 9.7 K/uL (4.8-10.8)
[2017-11-02] MEDS: oxyCODONE 20 mg ER Tab (oxyCONTIN) PO PRN ×2 (09:00→20:44)
--- NOTE | 2017-11-02 12:28 | CP.CCUPN ---
<Nikko Guerrero - Last Filed: 11/02/17 12:24> CCU Subjective - Physician Review Subjective (Free Text): 11/01/17 16:39 Patient seen and examined. Patient reports feeling better this morning. Chest pain and dyspnea have resolved. Patient still has a very mild headache. 11/02/17 12:24 Patient seen and examined. Patient reports that she is doing well this morning. We will discontinue the Cardine drip after oral medications this morning. CCU Objective - Vital Signs / Intake & Output Vital Signs (Last 4 hours): Vital Signs Pulse Resp BP Pulse Ox 11/02/17 09:59 78 14 155/93 H 11/02/17 09:58 78 20 11/02/17 09:01 170/107 H 11/02/17 09:00 88 17 97 11/02/17 08:58 94 H 15 170/107 H 95 Intake and Output (Last 8hrs): Intake & Output 11/01/17 11/02/17 11/02/17 22:59 06:59 14:59 Intake Total 700 650 710 Output Total 600 600 Balance 100 50 710 Weight 184 lb 8 oz Intake: IV 250 250 Intake, IV Amount 300 200 100 Left Antecubital 200 200 100 Left Forearm 100 Oral 400 200 360 Output: Urine 600 600 Urine, Voided 600 600 - Physical Exam Head: Positive for: Atraumatic, Normocephalic Pupils: Positive for: PERRL Extroacular Muscles: Positive for: EOMI Conjunctiva: Positive for: Normal Mouth: Positive for: Moist Mucous Membranes Respiratory/Chest: Positive for: Clear to Auscultation. Negative for: Wheezes, Rales, Rhonchi Cardiovascular: Positive for: Regular Rate and Rhythm, Normal S1, S2 Abdomen: Positive for: Normal Bowel Sounds. Negative for: Tenderness, Distention Upper Extremity: Positive for: Normal Inspection Lower Extremity: Positive for: Normal Inspection Neurological: Positive for: GCS=15 Skin: Positive for: Warm, Dry Psychiatric: Positive for: Alert, Oriented x 3 - Medications Active Medications: Active Medications Generic Name Dose Route Start Last Admin Trade Name Freq PRN Reason Stop Dose Admin Alprazolam 0.5 mg 10/31/17 15:40 11/01/17 20:13 Xanax PO 0.5 mg TID PRN Administration Anxiety Amlodipine Besylate 10 mg 10/31/17 22:00 Norvasc PO Q12 ALICE Carvedilol 25 mg 10/31/17 15:45 11/02/17 09:01 Coreg PO 25 mg Q12 ALICE Administration Cyclobenzaprine HCl 5 mg 10/31/17 22:00 11/01/17 21:21 Flexeril PO 5 mg HS ALICE Administration Docusate Sodium 100 mg 10/31/17 18:00 11/02/17 09:01 Colace PO 100 mg TID ALICE Administration Gabapentin 300 mg 10/31/17 18:00 11/02/17 09:02 Neurontin PO 300 mg TID ALICE Administration Hydralazine HCl 50 mg 10/31/17 22:00 11/02/17 05:47 Apresoline PO 50 mg Q8 ALICE Administration Lorazepam 0.5 mg 10/31/17 17:15 11/02/17 05:47 Ativan IVP 0.5 mg Q8 ALICE Administration Morphine Sulfate 2 mg 10/31/17 17:05 11/02/17 03:37 Morphine IVP 2 mg Q4 PRN Administration Pain, severe (8-10) Ondansetron HCl 4 mg 10/31/17 17:05 Zofran Inj IVP Q8 PRN nause Oxycodone HCl 20 mg 10/31/17 15:40 11/02/17 09:00 Oxycontin Extended Release Tab PO 20 mg BID PRN Administration Pain, severe (8-10) Oxycodone/Acetaminophen 1 tab 10/31/17 15:40 10/31/17 21:38 Percocet 5/325 Mg Tab PO 11/03/17 15:41 1 tab BID PRN Administration Pain, moderate (4-7) Pantoprazole Sodium 40 mg 11/01/17 10:00 11/02/17 09:02 Protonix Inj IVP 40 mg DAILY ALICE Administration Spironolactone 25 mg 11/01/17 10:00 11/02/17 09:02 Aldactone PO 25 mg DAILY ALICE Administration - Patient Studies Lab Studies: Microbiology Studies 10/31/17 19:40 MRSA Culture (Admit) - Final Naris MRSA NOT DETECTED Lab Studies 11/02/17 11/02/17 Range/Units 08:53 06:14 WBC 9.7 (4.8-10.8) K/uL RBC 5.49 H (3.80-5.20) Mil/uL Hgb 15.0 (11.0-16.0) g/dL Hct 45.2 (34.0-47.0) % MCV 82.4 (81.0-99.0) fL MCH 27.3 (27.0-31.0) pg MCHC 33.1 (33.0-37.0) g/dL RDW 17.6 H (11.5-14.5) % Plt Count 361 (130-400) K/uL MPV 7.2 (7.2-11.7) fL Neut % (Auto) 69.4 (50.0-75.0) % Lymph % (Auto) 23.0 (20.0-40.0) % Lamb % (Auto) 5.3 (0.0-10.0) % Eos % (Auto) 1.1 (0.0-4.0) % Baso % (Auto) 1.2 (0.0-2.0) % Neut # (Auto) 6.7 (1.8-7.0) K/uL Lymph # (Auto) 2.2 (1.0-4.3) K/uL Lamb # (Auto) 0.5 (0.0-0.8) K/uL Eos # (Auto) 0.1 (0.0-0.7) K/uL Baso # (Auto) 0.1 (0.0-0.2) K/uL Sodium 137 (132-148) mmol/L Potassium 3.8 (3.6-5.2) mmol/L Chloride 101 (98-107) mmol/L Carbon Dioxide 23 (22-30) mmol/L Anion Gap 17 (10-20) BUN 21 H (7-17) mg/dL Creatinine 0.8 (0.7-1.2) mg/dL Est GFR ( Amer) > 60 Est GFR (Non-Af Amer) > 60 Random Glucose 171 H (65-105) mg/dL Calcium 9.3 (8.6-10.4) mg/dl Phosphorus 3.4 (2.5-4.5) mg/dL Magnesium 1.9 (1.6-2.3) mg/dL Total Bilirubin 0.9 (0.2-1.3) mg/dL AST 27 (14-36) U/L ALT 14 (9-52) U/L Alkaline Phosphatase 77 (38-126) U/L Total Protein 8.0 (6.3-8.3) g/dL Albumin 4.1 (3.5-5.0) g/dL Globulin 3.8 (2.2-3.9) gm/dL Albumin/Globulin Ratio 1.1 (1.0-2.1) Laboratory Results - last 24 hr 11/02/17 11/02/17 06:14 08:53 WBC 9.7 RBC 5.49 H Hgb 15.0 Hct 45.2 MCV 82.4 MCH 27.3 MCHC 33.1 RDW 17.6 H Plt Count 361 MPV 7.2 Neut % (Auto) 69.4 Lymph % (Auto) 23.0 Lamb % (Auto) 5.3 Eos % (Auto) 1.1 Baso % (Auto) 1.2 Neut # (Auto) 6.7 Lymph # (Auto) 2.2 Lamb # (Auto) 0.5 Eos # (Auto) 0.1 Baso # (Auto) 0.1 Sodium 137 Potassium 3.8 Chloride 101 Carbon Dioxide 23 Anion Gap 17 BUN 21 H Creatinine 0.8 Est GFR ( Amer) > 60 Est GFR (Non-Af Amer) > 60 Random Glucose 171 H Calcium 9.3 Phosphorus 3.4 Magnesium 1.9 Total Bilirubin 0.9 AST 27 ALT 14 Alkaline Phosphatase 77 Total Protein 8.0 Albumin 4.1 Globulin 3.8 Albumin/Globulin Ratio 1.1 Critical Care Progress Note - Nutrition Nutrition: Nutrition Category Date Time Status Heart Healthy Diet [DIET] Diets 11/01/17 Breakfast Active Assessment/Plan - Assessment and Plan (Free Text) Assessment: This is a 47 year old female with PMHx uncontrolled hypertension here for hypertensive emergency. Neuro Awake, Verbal Cardio Coreg 25 mg PO Q12 Hydralazine 50 mg PO Q8 Spironolactone 25 mg PO daily Amlodipine 10 mg PO Q12H Cardine drip discontinued Pulm saturating well GI Heart Healthy Diet Protonix 40 mg IV daily Prophylaxis SCDs Protonix 40 mg IV daily Discussed with Dr. Perkins <Ralph Perkins - Last Filed: 11/02/17 16:10> CCU Objective - Vital Signs / Intake & Output Vital Signs (Last 4 hours): Vital Signs Pulse Resp BP 11/02/17 14:00 81 20 11/02/17 13:58 82 25 H 115/82 11/02/17 13:00 81 21 105/76 Intake and Output (Last 8hrs): Intake & Output 11/02/17 11/02/17 11/02/17 06:59 14:59 22:59 Intake Total 650 1265 Output Total 600 400 Balance 50 865 Weight 184 lb 8 oz Intake: IV 250 300 Intake, IV Amount 200 125 Left Antecubital 200 125 Oral 200 840 Output: Urine 600 400 Urine, Voided 600 400 - Medications Active Medications: Active Medications Generic Name Dose Route Start Last Admin Trade Name Freq PRN Reason Stop Dose Admin Alprazolam 0.5 mg 10/31/17 15:40 11/01/17 20:13 Xanax PO 0.5 mg TID PRN Administration Anxiety Amlodipine Besylate 10 mg 10/31/17 22:00 11/02/17 12:51 Norvasc PO Not Given Q12 ALICE Carvedilol 25 mg 10/31/17 15:45 11/02/17 09:01 Coreg PO 25 mg Q12 ALICE Administration Cyclobenzaprine HCl 5 mg 10/31/17 22:00 11/01/17 21:21 Flexeril PO 5 mg HS ALICE Administration Docusate Sodium 100 mg 10/31/17 18:00 11/02/17 13:46 Colace PO 100 mg TID ALICE Administration Gabapentin 300 mg 10/31/17 18:00 11/02/17 13:45 Neurontin PO 300 mg TID ALICE Administration Hydralazine HCl 50 mg 10/31/17 22:00 11/02/17 13:46 Apresoline PO 50 mg Q8 ALICE Administration Lorazepam 0.5 mg 10/31/17 17:15 11/02/17 13:44 Ativan IVP 0.5 mg Q8 ALICE Administration Morphine Sulfate 2 mg 10/31/17 17:05 11/02/17 03:37 Morphine IVP 2 mg Q4 PRN Administration Pain, severe (8-10) Ondansetron HCl 4 mg 10/31/17 17:05 Zofran Inj IVP Q8 PRN nause Oxycodone HCl 20 mg 10/31/17 15:40 11/02/17 09:00 Oxycontin Extended Release Tab PO 20 mg BID PRN Administration Pain, severe (8-10) Oxycodone/Acetaminophen 1 tab 10/31/17 15:40 10/31/17 21:38 Percocet 5/325 Mg Tab PO 11/03/17 15:41 1 tab BID PRN Administration Pain, moderate (4-7) Pantoprazole Sodium 40 mg 11/01/17 10:00 11/02/17 09:02 Protonix Inj IVP 40 mg DAILY ALICE Administration Spironolactone 25 mg 11/01/17 10:00 11/02/17 09:02 Aldactone PO 25 mg DAILY ALICE Administration - Patient Studies Lab Studies: Microbiology Studies 10/31/17 19:40 MRSA Culture (Admit) - Final Naris MRSA NOT DETECTED Lab Studies 11/02/17 11/02/17 Range/Units 08:53 06:14 WBC 9.7 (4.8-10.8) K/uL RBC 5.49 H (3.80-5.20) Mil/uL Hgb 15.0 (11.0-16.0) g/dL Hct 45.2 (34.0-47.0) % MCV 82.4 (81.0-99.0) fL MCH 27.3 (27.0-31.0) pg MCHC 33.1 (33.0-37.0) g/dL RDW 17.6 H (11.5-14.5) % Plt Count 361 (130-400) K/uL MPV 7.2 (7.2-11.7) fL Neut % (Auto) 69.4 (50.0-75.0) % Lymph % (Auto) 23.0 (20.0-40.0) % Lamb % (Auto) 5.3 (0.0-10.0) % Eos % (Auto) 1.1 (0.0-4.0) % Baso % (Auto) 1.2 (0.0-2.0) % Neut # (Auto) 6.7 (1.8-7.0) K/uL Lymph # (Auto) 2.2 (1.0-4.3) K/uL Lamb # (Auto) 0.5 (0.0-0.8) K/uL Eos # (Auto) 0.1 (0.0-0.7) K/uL Baso # (Auto) 0.1 (0.0-0.2) K/uL Sodium 137 (132-148) mmol/L Potassium 3.8 (3.6-5.2) mmol/L Chloride 101 (98-107) mmol/L Carbon Dioxide 23 (22-30) mmol/L Anion Gap 17 (10-20) BUN 21 H (7-17) mg/dL Creatinine 0.8 (0.7-1.2) mg/dL Est GFR ( Amer) > 60 Est GFR (Non-Af Amer) > 60 Random Glucose 171 H (65-105) mg/dL Calcium 9.3 (8.6-10.4) mg/dl Phosphorus 3.4 (2.5-4.5) mg/dL Magnesium 1.9 (1.6-2.3) mg/dL Total Bilirubin 0.9 (0.2-1.3) mg/dL AST 27 (14-36) U/L ALT 14 (9-52) U/L Alkaline Phosphatase 77 (38-126) U/L Total Protein 8.0 (6.3-8.3) g/dL Albumin 4.1 (3.5-5.0) g/dL Globulin 3.8 (2.2-3.9) gm/dL Albumin/Globulin Ratio 1.1 (1.0-2.1) Laboratory Results - last 24 hr 11/02/17 11/02/17 06:14 08:53 WBC 9.7 RBC 5.49 H Hgb 15.0 Hct 45.2 MCV 82.4 MCH 27.3 MCHC 33.1 RDW 17.6 H Plt Count 361 MPV 7.2 Neut % (Auto) 69.4 Lymph % (Auto) 23.0 Lamb % (Auto) 5.3 Eos % (Auto) 1.1 Baso % (Auto) 1.2 Neut # (Auto) 6.7 Lymph # (Auto) 2.2 Lamb # (Auto) 0.5 Eos # (Auto) 0.1 Baso # (Auto) 0.1 Sodium 137 Potassium 3.8 Chloride 101 Carbon Dioxide 23 Anion Gap 17 BUN 21 H Creatinine 0.8 Est GFR ( Amer) > 60 Est GFR (Non-Af Amer) > 60 Random Glucose 171 H Calcium 9.3 Phosphorus 3.4 Magnesium 1.9 Total Bilirubin 0.9 AST 27 ALT 14 Alkaline Phosphatase 77 Total Protein 8.0 Albumin 4.1 Globulin 3.8 Albumin/Globulin Ratio 1.1 Critical Care Progress Note - Nutrition Nutrition: Nutrition Category Date Time Status Heart Healthy Diet [DIET] Diets 11/01/17 Breakfast Active Attending/Attestation - Attestation I have personally seen and examined this patient.: Yes I have fully participated in the care of the patient.: Yes I have reviewed all pertinent clinical information: Yes Notes (Text): 11/02/17 16:10 Patient seen and examined in the intensive care unit. Case discussed with house staff in the morning rounds. Patient is off Cardene drip and started on oral antihypertensive Stable for transfer to floor
--- NOTE | 2017-11-02 13:34 | CP.PCM.PN ---
Subjective - Date & Time of Evaluation Date of Evaluation: 11/02/17 Time of Evaluation: 13:32 - Subjective Subjective: seen and examined off cardene gtt bp improved, symptoms of cp resolved. denies any n/v/d/fevers/chills/sob/ dizziness/headache labs noted Objective - Vital Signs/Intake and Output Vital Signs (last 24 hours): Temp Pulse Resp BP Pulse Ox 98.0 F 90 14 100/67 97 11/02/17 08:00 11/02/17 12:00 11/02/17 12:00 11/02/17 11:58 11/02/17 09:00 Intake and Output: 11/02/17 11/02/17 06:59 18:59 Intake Total 1150 760 Output Total 800 Balance 350 760 - Medications Medications: Current Medications Alprazolam (Xanax) 0.5 mg PO TID PRN PRN Reason: Anxiety Last Admin: 11/01/17 20:13 Dose: 0.5 mg Amlodipine Besylate (Norvasc) 10 mg PO Q12 [facility] Last Admin: 11/02/17 12:51 Dose: Not Given Carvedilol (Coreg) 25 mg PO Q12 [facility] Last Admin: 11/02/17 09:01 Dose: 25 mg Cyclobenzaprine HCl (Flexeril) 5 mg PO HS [facility] Last Admin: 11/01/17 21:21 Dose: 5 mg Docusate Sodium (Colace) 100 mg PO TID [facility] Last Admin: 11/02/17 09:01 Dose: 100 mg Gabapentin (Neurontin) 300 mg PO TID [facility] Last Admin: 11/02/17 09:02 Dose: 300 mg Hydralazine HCl (Apresoline) 50 mg PO Q8 [facility] Last Admin: 11/02/17 05:47 Dose: 50 mg Lorazepam (Ativan) 0.5 mg IVP Q8 [facility] Last Admin: 11/02/17 05:47 Dose: 0.5 mg Morphine Sulfate (Morphine) 2 mg IVP Q4 PRN PRN Reason: Pain, severe (8-10) Last Admin: 11/02/17 03:37 Dose: 2 mg Ondansetron HCl (Zofran Inj) 4 mg IVP Q8 PRN PRN Reason: nause Oxycodone HCl (Oxycontin Extended Release Tab) 20 mg PO BID PRN PRN Reason: Pain, severe (8-10) Last Admin: 11/02/17 09:00 Dose: 20 mg Oxycodone/Acetaminophen (Percocet 5/325 Mg Tab) 1 tab PO BID PRN PRN Reason: Pain, moderate (4-7) Stop: 11/03/17 15:41 Last Admin: 10/31/17 21:38 Dose: 1 tab Pantoprazole Sodium (Protonix Inj) 40 mg IVP DAILY [facility] Last Admin: 11/02/17 09:02 Dose: 40 mg Spironolactone (Aldactone) 25 mg PO DAILY [facility] Last Admin: 11/02/17 09:02 Dose: 25 mg - Labs Labs: 11/02/17 08:53 11/02/17 06:14 - Constitutional Appears: Non-toxic, No Acute Distress - Head Exam Head Exam: NORMAL INSPECTION, NORMOCEPHALIC - Eye Exam Eye Exam: Normal appearance, PERRL - ENT Exam ENT Exam: Mucous Membranes Moist, Normal Exam - Neck Exam Neck Exam: Full ROM, Normal Inspection - Respiratory Exam Respiratory Exam: Clear to Ausculation Bilateral, NORMAL BREATHING PATTERN - Cardiovascular Exam Cardiovascular Exam: REGULAR RHYTHM, RRR - GI/Abdominal Exam GI & Abdominal Exam: Soft, Normal Bowel Sounds - Extremities Exam Extremities Exam: Full ROM, Normal Inspection Assessment and Plan (1) Hypertensive emergency Status: Acute (2) Atypical chest pain Status: Acute (3) HTN (hypertension) Status: Acute - Assessment and Plan (Free Text) Assessment: pending PRA/aldosterone levels pending metanephrines per chart, prior renal dopplers neg for COLT recommend add ACEI/ARB low dose, dc spironolactone will follow along
[2017-11-02 18:25] LABS: SQUAMOUS EPITHIAL 2 /hpf (0-5); URINE BACTERIA RARE (<OCC); URINE BILIRUBIN NEGATIVE (NEGATIVE); URINE BLOOD NEGATIVE (NEGATIVE); URINE CLARITY Hazy (Clear); URINE GLUCOSE (UA) 1+ mg/dL (Normal); URINE LEUKOCYTE ESTERASE NEG Leu/uL (Negative); URINE PROTEIN 1+ mg/dL (NEGATIVE); URINE UROBILINOGEN NORMAL mg/dL (0.2-1.0)
[2017-11-02 18:27] LABS: URINE COLOR YELLOW (YELLOW)
--- NOTE | 2017-11-02 23:03 | CP.PCM.PN ---
Subjective - Date & Time of Evaluation Date of Evaluation: 11/02/17 Objective - Vital Signs/Intake and Output Vital Signs (last 24 hours): Temp Pulse Resp BP Pulse Ox 98.5 F 69 15 142/87 98 11/02/17 20:30 11/02/17 20:58 11/02/17 20:58 11/02/17 21:58 11/02/17 16:00 Intake and Output: 11/02/17 11/03/17 18:59 06:59 Intake Total 1505 Output Total 500 0 Balance 1005 0 - Medications Medications: Current Medications Alprazolam (Xanax) 0.5 mg PO TID PRN PRN Reason: Anxiety Last Admin: 11/02/17 20:41 Dose: 0.5 mg Amlodipine Besylate (Norvasc) 10 mg PO Q12 [facility] Last Admin: 11/02/17 21:58 Dose: 10 mg Carvedilol (Coreg) 25 mg PO Q12 [facility] Last Admin: 11/02/17 21:58 Dose: 25 mg Cyclobenzaprine HCl (Flexeril) 5 mg PO HS [facility] Last Admin: 11/02/17 21:59 Dose: 5 mg Docusate Sodium (Colace) 100 mg PO TID [facility] Last Admin: 11/02/17 17:39 Dose: 100 mg Gabapentin (Neurontin) 300 mg PO TID [facility] Last Admin: 11/02/17 17:39 Dose: 300 mg Hydralazine HCl (Apresoline) 50 mg PO Q8 [facility] Last Admin: 11/02/17 21:58 Dose: 50 mg Lorazepam (Ativan) 0.5 mg IVP Q8 [facility] Last Admin: 11/02/17 21:59 Dose: 0.5 mg Morphine Sulfate (Morphine) 2 mg IVP Q4 PRN PRN Reason: Pain, severe (8-10) Last Admin: 11/02/17 03:37 Dose: 2 mg Ondansetron HCl (Zofran Inj) 4 mg IVP Q8 PRN PRN Reason: nause Oxycodone HCl (Oxycontin Extended Release Tab) 20 mg PO BID PRN PRN Reason: Pain, severe (8-10) Last Admin: 11/02/17 20:44 Dose: 20 mg Oxycodone/Acetaminophen (Percocet 5/325 Mg Tab) 1 tab PO BID PRN PRN Reason: Pain, moderate (4-7) Stop: 11/03/17 15:41 Last Admin: 10/31/17 21:38 Dose: 1 tab Pantoprazole Sodium (Protonix Inj) 40 mg IVP DAILY [facility] Last Admin: 11/02/17 09:02 Dose: 40 mg Spironolactone (Aldactone) 25 mg PO DAILY [facility] Last Admin: 11/02/17 09:02 Dose: 25 mg - Labs Labs: 11/02/17 08:53 11/02/17 06:14
[2017-11-03] MEDS: oxyCODONE 20 mg ER Tab (oxyCONTIN) PO PRN ×2 (06:36→15:09)
[2017-11-03] MEDS ORDERED: Gadodiamide 287 mg/ml 20 ml IV ONE (16:30)
--- NOTE | 2017-11-03 16:34 | CP.PCM.CON ---
History of Present Illness - History of Present Illness History of Present Illness: bp well controlled asx 24 hr urine collection ongoing no sob no fever or chills no n/v/diarrha good u/o no abdominal pain no palpitations no increased thirst no headache no sinus tenderness Review of Systems - Constitutional Constitutional: absent: Fatigue, Headache - EENT Eyes: absent: Blurred Vision, Itchy Eyes - Cardiovascular Cardiovascular: absent: Chest Pain, Dyspnea on Exertion - Gastrointestinal Gastrointestinal: absent: Abdominal Pain, Bloating - Musculoskeletal Musculoskeletal: absent: Muscle Weakness - Neurological Neurological: absent: Abnormal Gait, Abnormal Hearing Past Patient History - Infectious Disease Hx of Infectious Diseases: None - Past Medical History & Family History Past Medical History?: Yes - Past Social History Smoking Status: Heavy Smoker > 10 Cigarettes Daily Chewing Tobacco Use: No Cigar Use: No Alcohol: Occasional Drugs: Denies - CARDIAC Hx Hypertension: Yes (noncompliant with meds) Hx Pacemaker: No - PULMONARY Hx Respiratory Disorders: No - NEUROLOGICAL Hx Paralysis: No - HEENT Hx HEENT Problems: No - RENAL Hx Chronic Kidney Disease: No - ENDOCRINE/METABOLIC Hx Endocrine Disorders: No - HEMATOLOGICAL/ONCOLOGICAL Hx Blood Transfusions: No - INTEGUMENTARY Hx Dermatological Problems: No - MUSCULOSKELETAL/RHEUMATOLOGICAL Hx Musculoskeletal Disorders: Yes - GASTROINTESTINAL Hx Gastrointestinal Disorders: No - GENITOURINARY/GYNECOLOGICAL Hx Genitourinary Disorders: No - PSYCHIATRIC Hx Anxiety: Yes Hx Substance Use: No - SURGICAL HISTORY Hx Surgeries: Yes - ANESTHESIA Hx Anesthesia: Yes Hx Anesthesia Reactions: No Hx Malignant Hyperthermia: No Meds Allergies/Adverse Reactions: Allergies Allergy/AdvReac Type Severity Reaction Status Date / Time No Known Allergies Allergy Verified 10/31/17 11:01 - Medications Medications: Current Medications Alprazolam (Xanax) 0.5 mg PO TID PRN PRN Reason: Anxiety Last Admin: 11/03/17 15:30 Dose: 0.5 mg Amlodipine Besylate (Norvasc) 10 mg PO Q12 [facility] Last Admin: 11/03/17 09:24 Dose: 10 mg Carvedilol (Coreg) 25 mg PO Q12 [facility] Last Admin: 11/03/17 09:24 Dose: 25 mg Cyclobenzaprine HCl (Flexeril) 5 mg PO HS [facility] Last Admin: 11/02/17 21:59 Dose: 5 mg Docusate Sodium (Colace) 100 mg PO TID [facility] Last Admin: 11/03/17 15:00 Dose: 100 mg Gabapentin (Neurontin) 300 mg PO TID [facility] Last Admin: 11/03/17 15:00 Dose: 300 mg Hydralazine HCl (Apresoline) 50 mg PO Q8 [facility] Last Admin: 11/03/17 15:00 Dose: 50 mg Lorazepam (Ativan) 0.5 mg IVP Q8 [facility] Last Admin: 11/03/17 15:29 Dose: 0.5 mg Morphine Sulfate (Morphine) 2 mg IVP Q4 PRN PRN Reason: Pain, severe (8-10) Last Admin: 11/02/17 03:37 Dose: 2 mg Ondansetron HCl (Zofran Inj) 4 mg IVP Q8 PRN PRN Reason: nause Oxycodone HCl (Oxycontin Extended Release Tab) 20 mg PO BID PRN PRN Reason: Pain, severe (8-10) Last Admin: 11/03/17 15:09 Dose: 20 mg Pantoprazole Sodium (Protonix Inj) 40 mg IVP DAILY [facility] Last Admin: 11/03/17 09:24 Dose: 40 mg Spironolactone (Aldactone) 25 mg PO DAILY [facility] Last Admin: 11/03/17 09:24 Dose: 25 mg Results - Vital Signs Recent Vital Signs: Last Vital Signs Temp 98.2 F 11/03/17 12:00 Pulse 77 11/03/17 12:00 Resp 17 11/03/17 12:00 BP 120/78 11/03/17 11:58 Pulse Ox 89 L 11/03/17 10:58 - Labs Result Diagrams: 11/02/17 08:53 11/02/17 06:14 Labs: Laboratory Results - last 24 hr 11/02/17 18:08 Urine Color Yellow Urine Clarity Hazy Urine pH 5.0 Ur Specific [place] 1.023 Urine Protein 1+ H Urine Glucose (UA) 1+ Urine Ketones Trace Urine Blood Negative Urine Nitrate Negative Urine Bilirubin Negative Urine Urobilinogen Normal Ur Leukocyte Esterase Neg Urine WBC (Auto) 3 Urine RBC (Auto) 1 Ur Squamous Epith Cells 2 Urine Bacteria Rare Hyaline Casts 6-10 H
--- NOTE | 2017-11-03 16:39 | CP.PCM.PN ---
Subjective - Date & Time of Evaluation Date of Evaluation: 11/03/17 Time of Evaluation: 16:37 - Subjective Subjective: feels better bp well controlled 24 hr urine pending no chest pain no sob no n/v/d no swelling no arthralgias Objective - Vital Signs/Intake and Output Vital Signs (last 24 hours): Temp Pulse Resp BP Pulse Ox 98.2 F 77 17 120/78 89 L 11/03/17 12:00 11/03/17 12:00 11/03/17 12:00 11/03/17 11:58 11/03/17 10:58 Intake and Output: 11/03/17 11/03/17 06:59 18:59 Intake Total 500 800 Output Total 0 Balance 500 800 - Medications Medications: Current Medications Alprazolam (Xanax) 0.5 mg PO TID PRN PRN Reason: Anxiety Last Admin: 11/03/17 15:30 Dose: 0.5 mg Amlodipine Besylate (Norvasc) 10 mg PO Q12 [facility] Last Admin: 11/03/17 09:24 Dose: 10 mg Carvedilol (Coreg) 25 mg PO Q12 [facility] Last Admin: 11/03/17 09:24 Dose: 25 mg Cyclobenzaprine HCl (Flexeril) 5 mg PO HS [facility] Last Admin: 11/02/17 21:59 Dose: 5 mg Docusate Sodium (Colace) 100 mg PO TID [facility] Last Admin: 11/03/17 15:00 Dose: 100 mg Gabapentin (Neurontin) 300 mg PO TID [facility] Last Admin: 11/03/17 15:00 Dose: 300 mg Hydralazine HCl (Apresoline) 50 mg PO Q8 [facility] Last Admin: 11/03/17 15:00 Dose: 50 mg Lorazepam (Ativan) 0.5 mg IVP Q8 [facility] Last Admin: 11/03/17 15:29 Dose: 0.5 mg Morphine Sulfate (Morphine) 2 mg IVP Q4 PRN PRN Reason: Pain, severe (8-10) Last Admin: 11/02/17 03:37 Dose: 2 mg Ondansetron HCl (Zofran Inj) 4 mg IVP Q8 PRN PRN Reason: nause Oxycodone HCl (Oxycontin Extended Release Tab) 20 mg PO BID PRN PRN Reason: Pain, severe (8-10) Last Admin: 11/03/17 15:09 Dose: 20 mg Pantoprazole Sodium (Protonix Inj) 40 mg IVP DAILY [facility] Last Admin: 11/03/17 09:24 Dose: 40 mg Spironolactone (Aldactone) 25 mg PO DAILY [facility] Last Admin: 11/03/17 09:24 Dose: 25 mg - Labs Labs: 11/02/17 08:53 11/02/17 06:14 - Constitutional Appears: Non-toxic, No Acute Distress - Head Exam Head Exam: ATRAUMATIC - Eye Exam Eye Exam: EOMI, Normal appearance - ENT Exam ENT Exam: Mucous Membranes Moist - Neck Exam Neck Exam: Full ROM. absent: Lymphadenopathy - Respiratory Exam Respiratory Exam: Clear to Ausculation Bilateral. absent: Accessory Muscle Use - Cardiovascular Exam Cardiovascular Exam: REGULAR RHYTHM. absent: Rubs - GI/Abdominal Exam GI & Abdominal Exam: Soft, Normal Bowel Sounds. absent: Tenderness - Neurological Exam Neurological Exam: Alert, Awake, Oriented x3 Assessment and Plan - Assessment and Plan (Free Text) Assessment: malignant htn, well controlled continue current regimen complete w/u in office
--- NOTE | 2017-11-03 18:22 | MRI ---
PROCEDURE: MRI BRAIN WITH AND WITHOUT CONTRAST HISTORY: cerebellar vestibular insufficiency COMPARISON: Noncontrast head CT from 10/31/2017 TECHNIQUE: Multiplanar, multisequence MR images of the brain were obtained with and without intravenous contrast enhancement. 16 mL Omniscan was injected intravenously. FINDINGS: HEMORRHAGE: None DWI: No evidence of an acute or early subacute infarction. BRAIN PARENCHYMA: There are multifocal T2/FLAIR hyperintense foci in the subcortical bifrontal white matter. There is no mass, mass effect or abnormal extra-axial fluid collection. There is no territorial infarction. The midline sagittal structures are normal. ENHANCEMENT: No abnormal intracranial enhancement. VENTRICLES: The ventricles are normal in size, shape and configuration. CRANIUM: There is normal bone marrow signal pattern. ORBITS: Grossly unremarkable. PARANASAL SINUSES/MASTOIDS: Predominantly clear. VASCULAR SYSTEM: There are normal signal voids in the larger intracranial arteries. OTHER FINDINGS: None . IMPRESSION: No acute intracranial abnormality. Mild subcortical supratentorial white matter changes are strictly nonspecific. The differential considerations include migraine headache effect, gliosis, early chronic microangiopathic changes amongst others.
[2017-11-03 19:30] LABS: URINE 24 HOUR TOTAL PROTEIN 77.5 mg/24hr (42-225)
[2017-11-03] MEDS: Morphine 4 MG/ML VIAL IVP PRN (20:40)
[2017-11-04] MEDS: oxyCODONE 20 mg ER Tab (oxyCONTIN) PO PRN (06:31)
--- NOTE | 2017-11-04 08:03 | CP.PCM.DIS ---
Provider - Provider Date of Admission: 10/31/17 16:10 Attending physician: France Marti MD Hospital Course - Lab Results Lab Results: Micro Results 10/31/17 19:40 Naris MRSA Culture (Admit) - Final MRSA NOT DETECTED Most Recent Lab Values WBC 9.7 K/uL (4.8-10.8) 11/02/17 08:53 RBC 5.49 Mil/uL (3.80-5.20) H 11/02/17 08:53 Hgb 15.0 g/dL (11.0-16.0) 11/02/17 08:53 Hct 45.2 % (34.0-47.0) 11/02/17 08:53 MCV 82.4 fL (81.0-99.0) 11/02/17 08:53 MCH 27.3 pg (27.0-31.0) 11/02/17 08:53 MCHC 33.1 g/dL (33.0-37.0) 11/02/17 08:53 RDW 17.6 % (11.5-14.5) H 11/02/17 08:53 Plt Count 361 K/uL (130-400) 11/02/17 08:53 MPV 7.2 fL (7.2-11.7) 11/02/17 08:53 Neut % (Auto) 69.4 % (50.0-75.0) 11/02/17 08:53 Lymph % (Auto) 23.0 % (20.0-40.0) 11/02/17 08:53 [place] % (Auto) 5.3 % (0.0-10.0) 11/02/17 08:53 Eos % (Auto) 1.1 % (0.0-4.0) 11/02/17 08:53 Baso % (Auto) 1.2 % (0.0-2.0) 11/02/17 08:53 Neut # (Auto) 6.7 K/uL (1.8-7.0) 11/02/17 08:53 Lymph # (Auto) 2.2 K/uL (1.0-4.3) 11/02/17 08:53 [place] # (Auto) 0.5 K/uL (0.0-0.8) 11/02/17 08:53 Eos # (Auto) 0.1 K/uL (0.0-0.7) 11/02/17 08:53 Baso # (Auto) 0.1 K/uL (0.0-0.2) 11/02/17 08:53 Sodium 137 mmol/L (132-148) 11/02/17 06:14 Potassium 3.8 mmol/L (3.6-5.2) 11/02/17 06:14 Chloride 101 mmol/L (98-107) 11/02/17 06:14 Carbon Dioxide 23 mmol/L (22-30) 11/02/17 06:14 Anion Gap 17 (10-20) 11/02/17 06:14 BUN 21 mg/dL (7-17) H 11/02/17 06:14 Creatinine 0.8 mg/dL (0.7-1.2) 11/02/17 06:14 Est GFR ( Amer) > 60 11/02/17 06:14 Est GFR (Non-Af Amer) > 60 11/02/17 06:14 Random Glucose 171 mg/dL (65-105) H 11/02/17 06:14 Calcium 9.3 mg/dl (8.6-10.4) 11/02/17 06:14 Phosphorus 3.4 mg/dL (2.5-4.5) 11/02/17 06:14 Magnesium 1.9 mg/dL (1.6-2.3) 11/02/17 06:14 Total Bilirubin 0.9 mg/dL (0.2-1.3) 11/02/17 06:14 AST 27 U/L (14-36) 11/02/17 06:14 ALT 14 U/L (9-52) 11/02/17 06:14 Alkaline Phosphatase 77 U/L (38-126) 11/02/17 06:14 Total Creatine Kinase 147 U/L (30-135) H 10/31/17 12:41 CK-MB (Mass) 2.12 ng/mL (0.0-3.38) 10/31/17 12:41 NT-Pro-B Natriuret Pep 1310 pg/mL (0-450) H 10/31/17 12:41 Total Protein 8.0 g/dL (6.3-8.3) 11/02/17 06:14 Albumin 4.1 g/dL (3.5-5.0) 11/02/17 06:14 Globulin 3.8 gm/dL (2.2-3.9) 11/02/17 06:14 Albumin/Globulin Ratio 1.1 (1.0-2.1) 11/02/17 06:14 Lipase 95 U/L (23-300) 10/31/17 12:41 TSH 3rd Generation 0.79 mIU/L (0.46-4.68) 11/01/17 05:56 Cortisol AM Sample 20.0 ug/dL (4.46-22.7) 11/01/17 05:56 Urine Color Yellow (YELLOW) 11/02/17 18:08 Urine Clarity Hazy (Clear) 11/02/17 18:08 Urine pH 5.0 (5.0-8.0) 11/02/17 18:08 Ur Specific [place] 1.023 (1.003-1.030) 11/02/17 18:08 Urine Protein 1+ mg/dL (NEGATIVE) H 11/02/17 18:08 Urine Glucose (UA) 1+ mg/dL (Normal) 11/02/17 18:08 Urine Ketones Trace mg/dL (NEGATIVE) 11/02/17 18:08 Urine Blood Negative (NEGATIVE) 11/02/17 18:08 Urine Nitrate Negative (NEGATIVE) 11/02/17 18:08 Urine Bilirubin Negative (NEGATIVE) 11/02/17 18:08 Urine Urobilinogen Normal mg/dL (0.2-1.0) 11/02/17 18:08 Ur Leukocyte Esterase Neg [place]/uL (Negative) 11/02/17 18:08 Urine WBC (Auto) 3 /hpf (0-5) 11/02/17 18:08 Urine RBC (Auto) 1 /hpf (0-3) 11/02/17 18:08 Ur Squamous Epith Cells 2 /hpf (0-5) 11/02/17 18:08 Urine Bacteria Rare (<OCC) 11/02/17 18:08 Hyaline Casts 6-10 /lpf (0-2) H 11/02/17 18:08 Urine Collection Time 24 HRS 11/02/17 18:43 Urine Total Volume 775 mL 11/02/17 18:43 Ur Protein 24 Hr Calc 77.5 mg/24hr (42-225) 11/02/17 18:43 Urine HCG, Qual Negative (NEGATIVE) 10/31/17 12:41 Discharge Exam - Head Exam Head Exam: ATRAUMATIC Discharge Plan - Follow Up Plan Condition: STABLE Disposition: HOME/ ROUTINE
--- NOTE | 2017-11-04 08:03 | CP.PCM.PN ---
Subjective - Date & Time of Evaluation Date of Evaluation: 11/03/17 Objective - Vital Signs/Intake and Output Vital Signs (last 24 hours): Temp Pulse Resp BP Pulse Ox 98 F 77 13 137/78 89 L 11/04/17 04:00 11/04/17 06:26 11/04/17 06:26 11/04/17 06:26 11/03/17 10:58 Intake and Output: 11/04/17 11/04/17 06:59 18:59 Intake Total 440 Output Total 350 Balance 90 - Medications Medications: Current Medications Alprazolam (Xanax) 0.5 mg PO TID PRN PRN Reason: Anxiety Last Admin: 11/03/17 15:30 Dose: 0.5 mg Amlodipine Besylate (Norvasc) 10 mg PO Q12 [facility] Last Admin: 11/03/17 21:42 Dose: 10 mg Carvedilol (Coreg) 25 mg PO Q12 [facility] Last Admin: 11/03/17 21:38 Dose: 25 mg Cyclobenzaprine HCl (Flexeril) 5 mg PO HS [facility] Last Admin: 11/03/17 21:40 Dose: 5 mg Docusate Sodium (Colace) 100 mg PO TID [facility] Last Admin: 11/03/17 17:59 Dose: 100 mg Gabapentin (Neurontin) 300 mg PO TID [facility] Last Admin: 11/03/17 17:58 Dose: 300 mg Hydralazine HCl (Apresoline) 50 mg PO Q8 [facility] Last Admin: 11/04/17 06:19 Dose: 50 mg Lorazepam (Ativan) 0.5 mg IVP Q8 [facility] Last Admin: 11/04/17 06:19 Dose: 0.5 mg Morphine Sulfate (Morphine) 2 mg IVP Q4 PRN PRN Reason: Pain, severe (8-10) Last Admin: 11/03/17 20:40 Dose: 2 mg Ondansetron HCl (Zofran Inj) 4 mg IVP Q8 PRN PRN Reason: nause Oxycodone HCl (Oxycontin Extended Release Tab) 20 mg PO BID PRN PRN Reason: Pain, severe (8-10) Last Admin: 11/04/17 06:31 Dose: 20 mg Pantoprazole Sodium (Protonix Inj) 40 mg IVP DAILY [facility] Last Admin: 04/18/18 09:24 Dose: 40 mg Spironolactone (Aldactone) 25 mg PO DAILY [facility] Last Admin: 11/03/17 09:24 Dose: 25 mg - Labs Labs: 11/02/17 08:53 11/02/17 06:14
[2017-11-04 09:28] VITALS: BP 128/87
[2017-11-04 10:50] VITALS: PULSE 80; RESP 15; TEMP 98.1; O2SAT 99
[2017-11-04 20:51] LABS: TOTAL VOLUME 1075 mL/24 h
== END 2017-11-04 09:50 | disposition home or self-care (01) | DRG 305 ==
LOC: C.ER 10:46 → C.9E 14:53 → C.5S 15:06 → C.9E 15:08 → C.6T 15:22 → OBSVTOIN 16:10 → C.9E 16:22 → C.9I 16:45
PROVIDERS: ADMIT Internal Medicine; ATTEND Internal Medicine
DX: I16.1 Hypertensive emergency (principal); I11.0 Hypertensive heart disease with heart failure; I50.9 Heart failure, unspecified; Z87.891 Personal history of nicotine dependence; Z91.14 Patient's other noncompliance with medication regimen; Z98.1 Arthrodesis status

== ENCOUNTER 2018-02-25 18:39 | Emergency (ER) | payer OTHER, MEDICARE ==
[2018-02-25 18:39] VITALS: BMI 30.7
[2018-02-25 19:02] VITALS: RESP 20
[2018-02-25 20:36] LABS: BASO # 0.1 K/uL (0.0-0.2); BASO % 0.6 % (0.0-2.0); EOS # 0.1 K/uL (0.0-0.7); EOS % 0.7 % (0.0-4.0); HEMOGLOBIN 16.9 g/dL (11.0-16.0); LYMPH # 2.2 K/uL (1.0-4.3); LYMPH % 14.5 % (20.0-40.0); MEAN CELL VOLUME 94.9 fL (81.0-99.0); MEAN CORPUSCULAR HEMOGLOBIN 32.2 pg (27.0-31.0); MEAN CORPUSCULAR HGB CONC 33.9 g/dL (33.0-37.0); MONO # 0.8 K/uL (0.0-0.8); MONO % 5.1 % (0.0-10.0); NEUT # 12.3 K/uL (1.8-7.0); NEUT % 79.1 % (50.0-75.0); NRBC % 0.1 % (0.0-2.0); RBC 5.25 Mil/uL (3.80-5.20); RED CELL DISTRIBUTION WIDTH 15.7 % (11.5-14.5); WHITE BLOOD COUNT 15.5 K/uL (4.8-10.8)
[2018-02-25 20:51] LABS: ALB/GLOB RATIO 1.4 (1.0-2.1); ALBUMIN 4.7 g/dL (3.5-5.0); ALT/SGPT 32 U/L (9-52); AST/SGOT 18 U/L (14-36); BLOOD UREA NITROGEN 30 mg/dL (7-17); CALCIUM 9.7 mg/dl (8.6-10.4); GFR AFRICAN-AMERICAN > 60; GFR NON-AFRICAN AMERICAN > 60
--- NOTE | 2018-02-25 21:58 | C.PDOC ---
History Of Present Illness 47yo female, sent to ER by PMD after she was noted to have an elevated blood pressure 220/130 while at the office. She is also complaining of dizziness, lower back pain and leg muscle spasm. Patient denies fever, chills, weakness, and offers no other complaints. Time Seen by Provider: 02/25/18 20:00 Chief Complaint (Nursing): Dizziness/Lightheaded History Per: Patient History/Exam Limitations: no limitations Onset/Duration Of Symptoms: Hrs Current Symptoms Are (Timing): Still Present Past Medical History Reviewed: Historical Data, Nursing Documentation, Vital Signs Vital Signs: Last Vital Signs Temp 98.3 F 02/25/18 23:30 Pulse 92 H 02/25/18 23:30 Resp 20 02/25/18 23:30 BP 132/89 02/25/18 23:30 Pulse Ox 98 02/25/18 23:30 - Medical History PMH: Anxiety, Back Problems, HTN (noncompliant with meds) Denies: Chronic Kidney Disease Surgical History: Back Surgery Denies: Pacemaker Family History: States: Unknown Family Hx - Social History Hx Tobacco Use: Yes Hx Alcohol Use: No Hx Substance Use: No - Immunization History Hx Tetanus Toxoid Vaccination: No Hx Influenza Vaccination: No Hx Pneumococcal Vaccination: No Review Of Systems Except As Marked, All Systems Reviewed And Found Negative. Constitutional: Negative for: Fever, Chills, Weakness Cardiovascular: Positive for: Other (elevated blood pressure) Musculoskeletal: Positive for: Back Pain, Leg Pain Neurological: Positive for: Dizziness Physical Exam - Physical Exam Appears: Non-toxic, No Acute Distress Skin: Warm, Dry, No Diaphoretic Head: Normacephalic Eye(s): bilateral: Normal Inspection Neck: Normal ROM, Supple Chest: Symmetrical Cardiovascular: Rhythm Regular Respiratory: Normal Breath Sounds Gastrointestinal/Abdominal: Normal Exam, Soft, No Tenderness Back: Normal Inspection Extremity: Normal ROM Neurological/Psych: Oriented x3 ED Course And Treatment - Laboratory Results Result Diagrams: 02/25/18 20:32 02/25/18 20:32 ECG: Interpreted By Me, Viewed By Me ECG Rhythm: Sinus Rhythm ECG Interpretation: No Changes From Prior Interpretation Of ECG: Left axis deviation Rate From EC O2 Sat by Pulse Oximetry: 99 (RA) Pulse Ox Interpretation: Normal Medical Decision Making Medical Decision Making: Plan: -- Labs -- CT head w/o contrast -- Meclizine 25mg PO -- Flexeril 10mg PO Blood pressure in triage 150/100 Disposition - Disposition Referrals: France Marti MD [Staff Provider] - Disposition: HOME/ ROUTINE Disposition Time: 21:45 Condition: IMPROVED Additional Instructions: LIA GIL, thank you for letting us take care of you today. The emergency medical care you received today was directed at your acute symptoms. If you were prescribed any medication, please fill it and take as directed. It may take several days for your symptoms to resolve. Return to the Emergency Department if your symptoms worsen, do not improve, or if you have any other problems. Please contact your doctor or call one of the physicians/clinics you have been referred to that are listed on the Patient Visit Information form that is included in your discharge packet. Bring any paperwork you were given at discharge with you along with any medications you are taking to your follow up visit. Our treatment cannot replace ongoing medical care by a primary care provider outside of the emergency department. Thank you for allowing the [facility] team to be part of your care today. Follow up with your primary care doctor in 3-4 days for re-evaluation and further management. Prescriptions: diaZEpam [Valium] 5 mg PO Q8 PRN #15 tab PRN Reason: Muscle Spasm oxyCODONE [oxyCODONE Immediate Release Tab] 5 mg PO Q6 PRN #15 tab PRN Reason: Pain, Severe (8-10) Instructions: High Blood Pressure in Adults, Low Back Pain (DC) Forms: [employer] (Irish) - Clinical Impression Clinical Impression: HTN (hypertension), Chronic back pain - Scribe Statement The provider has reviewed the documentation as recorded by the Lidia Esparza Provider Attestation: All medical record entries made by the Lidia were at my direction and personally dictated by me. I have reviewed the chart and agree that the record accurately reflects my personal performance of the history, physical exam, medical decision making, and the department course for this patient. I have also personally directed, reviewed, and agree with the discharge instructions and disposition.
[2018-02-25] MEDS ORDERED: oxyCODONE 5 mg Immediate Release Tab ONE (22:26)
[2018-02-25] MEDS: oxyCODONE 10 mg Immediate Release Tab PO STA (22:29)
[2018-02-25 23:31] VITALS: BP 132/89; PULSE 92; TEMP 98.3
[2018-02-26 00:56] VITALS: O2SAT 99
--- NOTE | 2018-02-26 13:48 | CT ---
Date of service: 02/25/2018 PROCEDURE: CT HEAD WITHOUT CONTRAST. HISTORY: r/o ICH COMPARISON: Comparison is made with 10/31/2017 TECHNIQUE: Axial computed tomography images were obtained through the head/brain without intravenous contrast. Radiation dose: Total exam DLP = 760.84 mGy-cm. This CT exam was performed using one or more of the following dose reduction techniques: Automated exposure control, adjustment of the mA and/or kV according to patient size, and/or use of iterative reconstruction technique. FINDINGS: HEMORRHAGE: No intracranial hemorrhage. BRAIN: No mass effect or edema. No atrophy or chronic microvascular ischemic changes. VENTRICLES: Unremarkable. No hydrocephalus. CALVARIUM: Unremarkable. PARANASAL SINUSES: Unremarkable as visualized. No significant inflammatory changes. MASTOID AIR CELLS: Unremarkable as visualized. No inflammatory changes. OTHER FINDINGS: None. IMPRESSION: No evidence of acute intracranial hemorrhage intracranial collection mass effect or midline shift.
--- NOTE | 2018-02-26 20:57 | RAD ---
Date of service: 02/25/2018 PROCEDURE: CHEST RADIOGRAPH, 1 VIEW HISTORY: chest pain COMPARISON: Comparison is made with 09/27/2017 FINDINGS: LUNGS: Clear. PLEURA: No pneumothorax or pleural fluid seen. CARDIOVASCULAR: Normal. OSSEOUS STRUCTURES: No significant abnormalities. VISUALIZED UPPER ABDOMEN: Normal. OTHER FINDINGS: None. IMPRESSION: No active disease.
== END 2018-02-25 23:31 | disposition home or self-care (01) ==
LOC: C.ER 18:39
DX: G89.29 Other chronic pain (principal); M54.5 Low back pain; I10 Essential (primary) hypertension; Z72.0 Tobacco use

== ENCOUNTER 2018-07-22 07:20 | Outpatient (CLI) | payer OTHER, MEDICARE | END 2018-07-22 07:21 | disposition home or self-care (01) | LOC: C.CARD 07:20 | DX: I10 Essential (primary) hypertension (principal); R07.89 Other chest pain ==